=== PATIENT | female | born 1940 | race Caucasian/White ===

== ENCOUNTER → 2023-12-30 14:41 | Outpatient (REF) | payer MEDICARE, OTHER, SELFPAY ==
[2023-12-30 15:59] LABS: % Basophils 0.4 % (0-2); % Immature Granulocytes 0.1 % (0-0.5); % Lymphocytes 18.3 % (20.5-51.1); % Neutrophils 70.2 % (42.2-75.2); Absolute Eosinophils 0.2 10^3/uL (0-0.7); Absolute Lymphocytes 1.2 10^3/uL (1.2-3.4); Absolute Monocytes 0.5 10^3/uL (0.1-0.6); Absolute Neutrophils 4.7 10^3/uL (1.4-6.5); Hemoglobin 9.3 g/dL (12.0-16.0); Mean Corp Hgb Conc. 33.2 g/dL (33.0-37.0); Mean Corpuscular Hgb 30.7 pg (27.0-31.0); Mean Corpuscular Volume 92.4 fL (81.0-99.0); Mean Platelet Volume 10.2 fL (7.4-10.4); Nucleated Red Blood Cells % 0 %; Platelet Count 184 10^3/uL (130-400); Red Blood Cell Count 3.03 10^6/uL (4.20-5.40); Red Cell Dist. Width 12.6 % (11.5-14.5); White Blood Cell Count 6.7 10^3/uL (4.8-10.8)
== END ==
LOC: REG 14:41
PROVIDERS: ATTENDING PHYSICIAN Internal Medicine Hematology & Oncology; FAMILY PHYSICIAN Family Medicine
DX: C50.411 Malignant neoplasm of upper-outer quadrant of right female breast (principal); R11.2 Nausea with vomiting, unspecified; Z51.89 Encounter for other specified aftercare; Z98.84 Bariatric surgery status; M81.8 Other osteoporosis without current pathological fracture; D64.9 Anemia, unspecified; R53.82 Chronic fatigue, unspecified; N18.30 Chronic kidney disease, stage 3 unspecified
CPT/HCPCS: 36415; 85025

== ENCOUNTER → 2024-05-31 12:03 | Outpatient (REF) | payer MEDICARE, OTHER, SELFPAY ==
[2024-05-31 12:49] LABS: % Basophils 0.4 % (0-2); % Eosinophils 3.7 % (0-6); % Immature Granulocytes 0.6 % (0-0.5); % Lymphocytes 17.2 % (20.5-51.1); % Monocytes 5.6 % (1.7-9.3); % Neutrophils 72.5 % (42.2-75.2); Absolute Eosinophils 0.4 10^3/uL (0-0.7); Absolute Immature Granulocytes 0.1 10^3/uL (0-0.05); Absolute Lymphocytes 1.7 10^3/uL (1.2-3.4); Absolute Monocytes 0.6 10^3/uL (0.1-0.6); Absolute Neutrophils 7.3 10^3/uL (1.4-6.5); Hematocrit 22.8 % (37.0-47.0); Mean Corp Hgb Conc. 30.7 g/dL (33.0-37.0); Mean Corpuscular Hgb 24.8 pg (27.0-31.0); Mean Corpuscular Volume 80.9 fL (81.0-99.0); Mean Platelet Volume 9.7 fL (7.4-10.4); Nucleated Red Blood Cells % 0 %; Platelet Count 225 10^3/uL (130-400); Red Blood Cell Count 2.82 10^6/uL (4.20-5.40); Red Cell Dist. Width 15.9 % (11.5-14.5)
== END ==
LOC: REG 12:03
PROVIDERS: ATTENDING PHYSICIAN Internal Medicine Hematology & Oncology; FAMILY PHYSICIAN Family Medicine; REFERRING PHYSICIAN Nurse Practitioner Family
DX: C50.411 Malignant neoplasm of upper-outer quadrant of right female breast (principal); R11.2 Nausea with vomiting, unspecified; Z51.89 Encounter for other specified aftercare; Z98.84 Bariatric surgery status; M81.8 Other osteoporosis without current pathological fracture; D64.9 Anemia, unspecified; R53.82 Chronic fatigue, unspecified; N18.30 Chronic kidney disease, stage 3 unspecified
CPT/HCPCS: 36415; 80048; 82728; 83010; 83540; 83550; 83615; 85025; 85045; 86850; 86900; 86901; 86920

== ENCOUNTER 2024-06-01 08:46 | Outpatient (RCR) | payer MEDICARE, OTHER, SELFPAY ==
[2024-05-31 18:32] LABS: Blood Urea Nitrogen 27 mg/dl (7-17); Calcium 8.5 mg/dl (8.4-10.2); Carbon Dioxide 27 mmol/L (22-30); Chloride 103 mmol/L (98-107); Glucose 78 mg/dl (70-99); Iron 38 ug/dl (37-170); LDH 466 U/L (120-246); Potassium 4.5 mmol/L (3.5-5.1); Sodium 136 mmol/L (135-145); eGFR 44.64
[2024-05-31 18:39] LABS: Reticulocyte Count 2.2 % (0.4-2.8)
[2024-05-31 18:41] LABS: Percent Saturation 9 % (20-50); Total Iron Binding Capacity 410 ug/dl (265-497)
[2024-05-31 19:07] LABS: Ferritin 12.2 ng/ml (11.1-264.0)
[2024-06-01 09:32] VITALS: BP 118/46
[2024-06-01 09:53] VITALS: BP 138/49
[2024-06-01 12:07] VITALS: BP 146/46
[2024-06-01 12:20] VITALS: BP 146/46
[2024-06-01 12:37] VITALS: BP 140/45
[2024-06-01 14:55] VITALS: BP 168/49
[2024-06-04 01:26] LABS: Haptoglobin <10 mg/dL (30-200)
== END 2024-06-20 23:59 | disposition home or self-care (01) ==
LOC: OID 08:46
PROVIDERS: Nurse Practitioner Family; ATTENDING PHYSICIAN Internal Medicine Hematology & Oncology; FAMILY PHYSICIAN Family Medicine
DX: C50.411 Malignant neoplasm of upper-outer quadrant of right female breast (principal); N18.30 Chronic kidney disease, stage 3 unspecified; R11.2 Nausea with vomiting, unspecified; Z98.84 Bariatric surgery status; Z51.89 Encounter for other specified aftercare
CPT/HCPCS: 36415; 36430; 80048; 82728; 83010; 83540; 83550; 83615; 85045; 86850; 86900; 86901; 86920; P9016

== ENCOUNTER → 2024-06-04 09:21 | Outpatient (REF) | payer MEDICARE, OTHER, SELFPAY | LOC: RCS 09:21 | PROVIDERS: ATTENDING PHYSICIAN Internal Medicine Interventional Cardiology; FAMILY PHYSICIAN Family Medicine | DX: I35.0 Nonrheumatic aortic (valve) stenosis (principal); Z95.2 Presence of prosthetic heart valve | CPT/HCPCS: 93306 ==

== ENCOUNTER → 2024-06-25 15:46 | Outpatient (REF) | payer MEDICARE, OTHER, SELFPAY ==
[2024-06-25 10:52] LABS: % Basophils 0.4 % (0-2); % Eosinophils 4.2 % (0-6); % Immature Granulocytes 0.4 % (0-0.5); % Lymphocytes 14.8 % (20.5-51.1); % Monocytes 8.6 % (1.7-9.3); % Neutrophils 71.6 % (42.2-75.2); Absolute Eosinophils 0.2 10^3/uL (0-0.7); Absolute Lymphocytes 0.8 10^3/uL (1.2-3.4); Absolute Monocytes 0.5 10^3/uL (0.1-0.6); Absolute Neutrophils 3.8 10^3/uL (1.4-6.5); Hematocrit 29.4 % (37.0-47.0); Hemoglobin 9.6 g/dL (12.0-16.0); Mean Corp Hgb Conc. 32.7 g/dL (33.0-37.0); Mean Corpuscular Hgb 26.4 pg (27.0-31.0); Mean Corpuscular Volume 80.8 fL (81.0-99.0); Mean Platelet Volume 10.5 fL (7.4-10.4); Nucleated Red Blood Cells % 0 %; Platelet Count 246 10^3/uL (130-400); Red Blood Cell Count 3.64 10^6/uL (4.20-5.40); Red Cell Dist. Width 17.4 % (11.5-14.5); White Blood Cell Count 5.3 10^3/uL (4.8-10.8)
== END ==
LOC: OIDL 15:46
PROVIDERS: ATTENDING PHYSICIAN Internal Medicine Hematology & Oncology
DX: C50.411 Malignant neoplasm of upper-outer quadrant of right female breast (principal)
CPT/HCPCS: 85025

== ENCOUNTER → 2024-06-29 10:08 | Outpatient (REF) | payer MEDICARE, OTHER, SELFPAY ==
[2024-06-29 12:01] LABS: % Basophils 0.4 % (0-2); % Eosinophils 3.9 % (0-6); % Lymphocytes 11.3 % (20.5-51.1); % Monocytes 12.6 % (1.7-9.3); % Neutrophils 69.8 % (42.2-75.2); Absolute Eosinophils 0.3 10^3/uL (0-0.7); Absolute Immature Granulocytes 0.1 10^3/uL (0-0.05); Absolute Lymphocytes 0.8 10^3/uL (1.2-3.4); Absolute Monocytes 0.9 10^3/uL (0.1-0.6); Absolute Neutrophils 4.8 10^3/uL (1.4-6.5); Hematocrit 30.7 % (37.0-47.0); Hemoglobin 9.7 g/dL (12.0-16.0); Mean Corp Hgb Conc. 31.6 g/dL (33.0-37.0); Mean Corpuscular Hgb 26.4 pg (27.0-31.0); Mean Corpuscular Volume 83.4 fL (81.0-99.0); Mean Platelet Volume 9.2 fL (7.4-10.4); Nucleated Red Blood Cells % 0 %; Platelet Count 215 10^3/uL (130-400); Red Blood Cell Count 3.68 10^6/uL (4.20-5.40); Red Cell Dist. Width 17.7 % (11.5-14.5); White Blood Cell Count 6.9 10^3/uL (4.8-10.8)
== END ==
LOC: REG 10:08
PROVIDERS: ATTENDING PHYSICIAN Physical Medicine & Rehabilitation; FAMILY PHYSICIAN Family Medicine
DX: Z01.818 Encounter for other preprocedural examination (principal)
CPT/HCPCS: 36415; 85025

== ENCOUNTER → 2024-07-05 13:14 | Outpatient (REF) | payer MEDICARE, OTHER, SELFPAY ==
[2024-07-05 15:13] LABS: Urine Albumin Trace (Neg - Trace); Urine Bilirubin Negative (Negative); Urine Character Clear (Clear); Urine Color Yellow; Urine Glucose Negative (Negative); Urine Ketone Negative (Negative); Urine Leukocyte 2+ (Negative); Urine Nitrite Negative (Negative); Urine Occult Blood Negative (Negative); Urine Specific Gravity 1.015 (<1.030); Urine Urobilinogen Negative (Neg - 1+)
[2024-07-05 15:42] LABS: ALT (SGPT) 54 U/L (0-35); AST (SGOT) 66 U/L (14-36); Albumin 4.4 g/dl (3.5-5.0); Alkaline Phosphatase 96 U/L (38-126); Direct Bilirubin 0.2 mg/dl (0.0-0.4); Total Protein 6.7 g/dl (6.3-8.2)
[2024-07-05 15:46] LABS: Urine Squamous Cell 0-2 /LPF (Few)
[2024-07-05 15:47] LABS: Urine Bacteria Many (Negative); Urine Red Blood Cell 0-2 /HPF (0-2); Urine White Cell 50-60 /HPF (0-5)
== END ==
LOC: REG 13:14
PROVIDERS: ATTENDING PHYSICIAN Internal Medicine Hematology & Oncology; FAMILY PHYSICIAN Family Medicine
DX: C50.411 Malignant neoplasm of upper-outer quadrant of right female breast (principal); R11.2 Nausea with vomiting, unspecified; Z51.89 Encounter for other specified aftercare; Z98.84 Bariatric surgery status; M81.8 Other osteoporosis without current pathological fracture; D64.9 Anemia, unspecified; R53.82 Chronic fatigue, unspecified; N18.30 Chronic kidney disease, stage 3 unspecified; D50.9 Iron deficiency anemia, unspecified; D59.4 Other nonautoimmune hemolytic anemias
CPT/HCPCS: 36415; 80076; 81003; 81015; 86880

== ENCOUNTER → 2024-07-24 06:49 | Outpatient (REF) | payer MEDICARE, OTHER, SELFPAY | LOC: MRI 3T 06:49 | PROVIDERS: ATTENDING PHYSICIAN Physical Medicine & Rehabilitation; FAMILY PHYSICIAN Family Medicine | DX: M54.16 Radiculopathy, lumbar region (principal) | CPT/HCPCS: 72148 ==

== ENCOUNTER → 2024-08-31 07:26 | Outpatient (REF) | payer MEDICARE, OTHER, SELFPAY | LOC: RAD 07:26 | PROVIDERS: ATTENDING PHYSICIAN Internal Medicine Gastroenterology; FAMILY PHYSICIAN Family Medicine; REFERRING PHYSICIAN Internal Medicine Hematology & Oncology | DX: R19.4 Change in bowel habit (principal); R10.32 Left lower quadrant pain | CPT/HCPCS: 74176 ==

== ENCOUNTER → 2024-09-11 13:00 | Outpatient (REF) | payer MEDICARE, OTHER, SELFPAY ==
[2024-09-11 16:25] LABS: % Basophils 0.6 % (0-2); % Eosinophils 3.7 % (0-6); % Immature Granulocytes 0.2 % (0-0.5); % Lymphocytes 16.5 % (20.5-51.1); % Monocytes 7.3 % (1.7-9.3); % Neutrophils 71.7 % (42.2-75.2); Absolute Eosinophils 0.2 10^3/uL (0-0.7); Absolute Lymphocytes 1.1 10^3/uL (1.2-3.4); Absolute Monocytes 0.5 10^3/uL (0.1-0.6); Absolute Neutrophils 4.6 10^3/uL (1.4-6.5); Hematocrit 34.7 % (37.0-47.0); Hemoglobin 11.7 g/dL (12.0-16.0); Mean Corp Hgb Conc. 33.7 g/dL (33.0-37.0); Mean Corpuscular Hgb 31.9 pg (27.0-31.0); Mean Corpuscular Volume 94.6 fL (81.0-99.0); Mean Platelet Volume 9.6 fL (7.4-10.4); Nucleated Red Blood Cells % 0 %; Platelet Count 194 10^3/uL (130-400); Red Blood Cell Count 3.67 10^6/uL (4.20-5.40); Red Cell Dist. Width 14.5 % (11.5-14.5); White Blood Cell Count 6.4 10^3/uL (4.8-10.8)
[2024-09-11 16:53] LABS: Iron 75 ug/dl (37-170)
[2024-09-11 17:04] LABS: Percent Saturation 26 % (20-50); Total Iron Binding Capacity 284 ug/dl (265-497)
== END ==
LOC: REG 13:00
PROVIDERS: ATTENDING PHYSICIAN Internal Medicine Hematology & Oncology; FAMILY PHYSICIAN Family Medicine
DX: C50.411 Malignant neoplasm of upper-outer quadrant of right female breast (principal); R11.2 Nausea with vomiting, unspecified; Z51.89 Encounter for other specified aftercare; Z98.84 Bariatric surgery status; M81.8 Other osteoporosis without current pathological fracture; D64.9 Anemia, unspecified; R53.82 Chronic fatigue, unspecified; N18.30 Chronic kidney disease, stage 3 unspecified; D50.9 Iron deficiency anemia, unspecified; D59.4 Other nonautoimmune hemolytic anemias; R30.0 Dysuria; N39.0 Urinary tract infection, site not specified
CPT/HCPCS: 36415; 82728; 83540; 83550; 85025

== ENCOUNTER 2024-10-02 09:09 | Emergency (ER) | payer MEDICARE, OTHER, SELFPAY ==
[2024-10-02 09:11] VITALS: BP 138/60
--- NOTE | 2024-10-02 10:44 | ED.MUSCINJ ---
HPI-Injury
General
Chief Complaint: Fall
Source: patient
Exam Limitations: none
Time Seen by Provider: 10/02/24 10:43
Nursing documentation reviewed up to this point in time: agreed with
History of Present Illness-Injury
Initial Injury comments:
84 yo female w h/o HTN, HLD, GERD, anemia, depression got OOB to go to [facility] 3 a.m. missed the toilet and fell forward, striking right orbit on hamper and fell onto right side. Bruising around right orbit, pain right shoulder and right hand with
swelling and bruising right hand. Not anticoagulated, denies LOC or headache. Denies neck/back pain. Got herself up and went back to bed.
Past History
Past History
ED Past Medical History: GERD, HTN, Hypercholesterolemia and Psychiatric (Depression)
ED Past Surgical History: Cholecystectomy, Gynecological, Orthopedic (carpal tunnel right hand, right shoulder replacement and R wrist hardware) and Other (gastric bypass)
Social History
Tobacco: Non-smoker
Drug: None
Personal:
Living: with family
Employment: Retired
Family History
Family History: Other
Review of Systems
Review of Systems
Allergies reviewed?: Yes
All Other Systems: ROS reviewed and negative except as documented in HPI and ROS
Respiratory: Denies trouble breathing
Cardiac: Denies chest pain, palpitations or syncope
ABD/GI: Denies abdominal pain, nausea, vomiting or diarrhea
: Denies dysuria, difficulty voiding or urgency
Musculoskeletal: Reports other (pain, bruising swelling back of right hand. Pain right shoulder, wrist); Denies neck pain or back pain
Skin: Reports other (bruising around right eye, right hand)
Neurological: Reports no symptoms
Phy Exam
Physical Exam
Physical Exam:
GENERAL: No acute distress. A&Ox3.
CONSTITUTIONAL: Afebrile.
EYES: PERRL, conjunctivae normal. Point tender right lateral supraorbital area with ecchymosis around right eye. EOMs intact. No significant swelling. Eyeball normal
ENMT: moist mucus membranes, Pharynx nl
RESPIRATORY: Regular respirations, nonlabored, lungs clear.
CARDIOVASCULAR: Regular rate and rhythm, + murmur, no rubs.
GI: Soft, nontender, normal BS
MUSCULOSKELETAL: No spinal bony tenderness. Limited ROM RUE (chronic) mild tenderness about the shoulder. No swelling right wrist. Dorsum right hand with swelling, ecchymosis, tenderness. Mild flexion deformity right hand finger post surgery
(chronic) Moves with ease. Well perfused.
SKIN: Warm, dry, pink
PSYCH: Normal mood and affect. Well kept, interactive and appropriate
NEUROLOGIC: Awake, alert and oriented. No focal neurological deficits
Injury Course
Orders/Labs/Results
Orders:
Orders
10/02/24 09:14
Hand, Right 3 View [CR Hand - Right Min 3 Views] Urgent
Comment:
Reason For Exam: pain, fell
10/02/24 09:15
Wrist, Right 3 Views [CR Wrist - Right Min 3 Views] Urgent
Comment:
Reason For Exam: fall
10/02/24 09:16
Shoulder, Right, Trauma [CR Shoulder, Trauma - Right] Urgent
Comment:
Reason For Exam: fall
10/02/24 10:44
Volar Right-Treatment ONCE
MDM/Problems Addressed
Differential Diagnosis Includes:
contusion, fracture R hand
MDM/Problems Addressed:
84 yo female w h/o HTN, HLD, GERD, anemia, depression got OOB to go to [facility] 3 a.m. missed the toilet and fell forward, striking right orbit on hamper and fell onto right side. Bruising around right orbit, pain right shoulder and right hand with
swelling and bruising right hand. Not anticoagulated, denies LOC or headache. Denies neck/back pain. Got herself up and went back to bed.
Clearly a mechanical fall.
R shoulder and wrist xrays: hardware intact, no acute bony injury/fracture
R hand xray: nondisplaced fractures shafts of 3rd and 4th metacarpals
Volar splint applied
Pt has seen Dr. Cox in past, will f/u there.
Pt lives in daughter's carriage house, has good family support.
*Critical Care Note
Total Time (30-74mins, 75-104mins- exclusive of procedures): Not Applicable
ED Attending Note
-
Portions of this chart may have been created with voice recognition software.� Occasional wrong word or��sound alike� substitutions may have occurred due to the inherent limitations of voice recognition software.
Discharge Plan
Departure
Patient Disposition: Home (Routine Discharge)
Date of Disposition: 10/02/24
Time of Disposition: 11:06
Patient with high blood pressure during this ER visit?: No
Condition: Good
Discharge Problem:
Fall from slip, trip, or stumble, Fracture of right hand, Contusion of right orbit, Soft tissue injury of right shoulder
Instructions: Contusion (DC), Preventing falls in adults, Hand Fracture ED
Prescriptions:
No Action
trazodone 150 MG tablet
150 mg PO HS
hydrochlorothiazide 12.5 MG tablet
12.5 mg PO DAILY Qty: 1 0RF
metoprolol succinate 25 mg Tablet Extended Release 24 Hr
50 mg PO HS
famotidine 40 mg Tablet
40 mg PO HS
omeprazole 40 mg Capsule,Delayed Release(Dr/Ec)
40 mg PO DAILY
bupropion HCl 300 mg Tablet Extended Release 24 Hr
300 mg PO DAILY
aspirin 81 mg Tablet,Chewable
81 mg PO DAILY
acetaminophen 325 mg Tablet
650 mg PO Q6HPRN PRN (Reason: ZUNIGA, mild pain, or fever >101F) Qty: 0 0RF
vitamin B complex [Vitamins B Complex] Capsule
1 cap DAILY
calcium carbonate 500 mg calcium (1,250 mg) Tablet
500 mg PO DAILY
cholecalciferol (vitamin D3) [Vitamin D3] 125 mcg (5,000 unit) Tablet
125 mcg PO DAILY
cefdinir 300 mg capsule
300 mg PO BID Qty: 18 0RF
zolpidem 10 MG tablet
5 mg PO HS Qty: 0 0RF
Patient Comments:
10/09/2023: last filled 08/22/23, 90 tabs for 90 days from [facility]
Referrals:
Tee Cox MD [Active] - Call in 1-3 days for appt
Activity Restrictions/Additional Instructions:
As we discussed, keep the splint on until you see the orthopedic doctor
Cold compress off and on the back of your hand over the za wrap for 15 minutes today and tomorrow as much as you can to reduce swelling.
Tylenol as needed for pain
Call the orthopedic doctor today to make appointment
Interventions
Interventions:
*Risk Screen - Suicide Last Done: 10/02/24 11:04
*General Assessment Last Done: 10/02/24 11:04
*Neglect/Abuse Screening Last Done: 10/02/24 11:04
*ED COVID-19 Vaccine History Last Done: 10/02/24 11:04
*Nursing Disposition Last Done: 10/02/24 11:26
ED-Musculoskeletal Assessment Last Done: 10/02/24 11:04
ED- Neurological Assessment Last Done: 10/02/24 11:04
Discharge Date and Time
Discharge Date/Time: 10/02/24 11:27
Print Language: KAZAKH
== END 2024-10-02 11:27 | disposition home or self-care (01) ==
LOC: EMR 09:09
PROVIDERS: EMERGENCY PHYSICIAN Emergency Medicine; FAMILY PHYSICIAN Family Medicine
DX: S62.91XA Unspecified fracture of right hand, initial encounter for closed fracture (principal); S05.11XA Contusion of eyeball and orbital tissues, right eye, initial encounter; S49.91XA Unspecified injury of right shoulder and upper arm, initial encounter; S60.221A Contusion of right hand, initial encounter; W01.0XXA Fall on same level from slipping, tripping and stumbling without subsequent striking against object, initial encounter; E78.00 Pure hypercholesterolemia, unspecified; I10 Essential (primary) hypertension; K21.9 Gastro-esophageal reflux disease without esophagitis; F32.A Depression, unspecified; Z90.49 Acquired absence of other specified parts of digestive tract; Z96.611 Presence of right artificial shoulder joint; Z98.84 Bariatric surgery status
CPT/HCPCS: 99283; 29125; 73030; 73110; 73130

== ENCOUNTER → 2024-12-03 14:09 | Outpatient (REF) | payer MEDICARE, OTHER, SELFPAY ==
[2024-12-03 15:11] LABS: % Basophils 0.7 % (0-2); % Eosinophils 2.8 % (0-6); % Immature Granulocytes 0.3 % (0-0.5); % Lymphocytes 22.6 % (20.5-51.1); % Monocytes 7.7 % (1.7-9.3); % Neutrophils 65.9 % (42.2-75.2); Absolute Basophils 0.1 10^3/uL (0-0.2); Absolute Eosinophils 0.2 10^3/uL (0-0.7); Absolute Lymphocytes 1.5 10^3/uL (1.2-3.4); Absolute Monocytes 0.5 10^3/uL (0.1-0.6); Absolute Neutrophils 4.4 10^3/uL (1.4-6.5); Hematocrit 32.5 % (37.0-47.0); Hemoglobin 10.7 g/dL (12.0-16.0); Mean Corp Hgb Conc. 32.9 g/dL (33.0-37.0); Mean Corpuscular Hgb 31.2 pg (27.0-31.0); Mean Corpuscular Volume 94.8 fL (81.0-99.0); Mean Platelet Volume 10.4 fL (7.4-10.4); Nucleated Red Blood Cells % 0 %; Platelet Count 204 10^3/uL (130-400); Red Blood Cell Count 3.43 10^6/uL (4.20-5.40); Red Cell Dist. Width 11.9 % (11.5-14.5); White Blood Cell Count 6.7 10^3/uL (4.8-10.8)
[2024-12-03 15:23] LABS: ALT (SGPT) 20 U/L (0-35); AST (SGOT) 36 U/L (14-36); Albumin 4.4 g/dl (3.5-5.0); Alkaline Phosphatase 84 U/L (38-126); Blood Urea Nitrogen 19 mg/dl (7-17); Carbon Dioxide 27 mmol/L (22-30); Chloride 99 mmol/L (98-107); Glucose 98 mg/dl (70-99); Potassium 5.1 mmol/L (3.5-5.1); Sodium 135 mmol/L (135-145); Total Bilirubin 1.3 mg/dl (0.2-1.3); Total Protein 6.8 g/dl (6.3-8.2); eGFR 40.55
== END ==
LOC: REG 14:09
PROVIDERS: ATTENDING PHYSICIAN Nurse Practitioner Family; FAMILY PHYSICIAN Family Medicine
DX: N39.0 Urinary tract infection, site not specified (principal); R50.9 Fever, unspecified
CPT/HCPCS: 36415; 80053; 85025

== ENCOUNTER 2024-12-08 17:02 | Inpatient (IN) | payer MEDICARE, OTHER, SELFPAY ==
[2024-12-08] VITALS (9 sets, daily range): BP systolic 112–168; BP diastolic 57–93; BMI 33.0
[2024-12-08 07:26] LABS: % Immature Granulocytes 0.3 % (0-0.5); % Lymphocytes 24.3 % (20.5-51.1); % Monocytes 9.4 % (1.7-9.3); Absolute Basophils 0.1 10^3/uL (0-0.2); Absolute Eosinophils 0.2 10^3/uL (0-0.7); Absolute Lymphocytes 1.4 10^3/uL (1.2-3.4); Absolute Monocytes 0.6 10^3/uL (0.1-0.6); Absolute Neutrophils 3.6 10^3/uL (1.4-6.5); Hematocrit 30.5 % (37.0-47.0); Hemoglobin 10.5 g/dL (12.0-16.0); Mean Corp Hgb Conc. 34.4 g/dL (33.0-37.0); Mean Platelet Volume 10.1 fL (7.4-10.4); Nucleated Red Blood Cells % 0 %; Platelet Count 197 10^3/uL (130-400); Red Blood Cell Count 3.28 10^6/uL (4.20-5.40); Red Cell Dist. Width 11.9 % (11.5-14.5); White Blood Cell Count 5.9 10^3/uL (4.8-10.8)
[2024-12-08 07:49] LABS: ALT (SGPT) 21 U/L (0-35); AST (SGOT) 39 U/L (14-36); Albumin 4.3 g/dl (3.5-5.0); Alkaline Phosphatase 86 U/L (38-126); Blood Urea Nitrogen 39 mg/dl (7-17); Calcium 8.4 mg/dl (8.4-10.2); Carbon Dioxide 24 mmol/L (22-30); Chloride 104 mmol/L (98-107); Glucose 100 mg/dl (70-99); Sodium 139 mmol/L (135-145); Total Bilirubin 1.1 mg/dl (0.2-1.3); Total Protein 6.7 g/dl (6.3-8.2); eGFR 24.18
[2024-12-08] MEDS: NSS 1000 IV ×3 (09:37→19:10)
--- NOTE | 2024-12-08 09:44 | ED.GENMED ---
History of Present Illness
General
Chief Complaint: Urinary Symptoms
Time Seen by Provider: 12/08/24 08:58
History of Present Illness
History of Present Illness:
84-year-old female with history of high blood pressure presenting for acute confusion and concern for urinary tract infection. Patient arrives with daughter who notes about a week ago she was having urinary symptoms, was started on Keflex. The
following few days she was not improving, so she was started on ciprofloxacin by urology. Urine culture showed sensitivity to ciprofloxacin, however this morning she woke up, came into her daughter's house (lives in a carriage house behind her),
and was belligerent, very confused which is completely unlike her. Does note that patient has issues with urination, self caths 4 times a day so has had urinary tract infections in the past. No reported fevers. Patient has been complaining of
back pain. No report of any fall or trauma. Patient denies any chest breathing, abdominal pain.
Past History
Past History
ED Past Medical History: GERD, HTN, Hypercholesterolemia and Psychiatric (Depression)
ED Past Surgical History: Cholecystectomy, Gynecological, Orthopedic (carpal tunnel right hand, right shoulder replacement and R wrist hardware) and Other (gastric bypass)
Social History
Tobacco: Non-smoker
Drug: None
Personal:
Living: with family
Employment: Retired
Family History
Family History: Other
Phy Exam
Physical Exam
Physical Exam:
General: Well-appearing, no clinical signs of dehydration, nontoxic and in no acute distress
HEENT: protecting airway
Neck: appears supple
CV: Normal heart rate, regular rhythm
Resp: No accessory muscle use, no increased work of breathing, lungs clear to auscultation bilaterally
Abd: Soft and non-distended, mild tenderness to suprapubic region. Left CVA tenderness
Extremities: No deformities, no swelling
Neuro: alert, no focal neurologic deficit
: deferred
Rectal: deferred
Psych: Normal affect
Skin: Intact
Course
Orders/Labs/Results
Orders:
Orders
12/08/24 07:19
CMP [Comprehensive Metabolic Panel] Urgent
Complete Blood Count/With Diff Urgent
12/08/24 09:19
0.9% Sodium Chloride 1000 ml [Nss] 1,000 ml IV BOLUS
12/08/24 09:20
CT Head W/o Iv Contrast Urgent
Comment:
Reason For Exam: new onset confusion
12/08/24 09:26
Urinalysis Reflex To Culture Urgent
Date Specimen was Collected: 12/08/24
Time Specimen was Collected: :25
Urine Microscopic Reflex Cult Urgent
Urine Culture Urgent
ANETTE Source: U
Specimen Description:
Date Specimen was Collected: 12/08/24
Time Specimen was Collected: :25
12/08/24 09:38
CT Abd/pel Without Iv Or Oral Urgent
Comment:
Reason For Exam: L-flank pain, urinary symptoms
12/08/24 13:08
NSS 1000mL Bolus WIDE OPEN 0.9% Sodium Chloride 1000 ml [Nss] 1,000 ml IV BOLUS
Piperacillin/Tazo 4.5 Gram [Zosyn] 4.5 gram in 100 ml IV NOW
Abnormal Lab Results
12/08/24 12/08/24
07:19 09:26
RBC 3.28 L 10^6/uL
(4.20-5.40)
Hgb 10.5 L g/dL
(12.0-16.0)
Hct 30.5 L %
(37.0-47.0)
MCH 32.0 H pg
(27.0-31.0)
Monocytes % 9.4 H %
(1.7-9.3)
BUN 39 H mg/dl
(7-17)
Creatinine 2.0 H mg/dL
(0.6-1.0)
Glucose 100 H mg/dl
(70-99)
AST 39 H U/L
(14-36)
Leukocyte Esterase Rfl 1+ A
(Negative)
Urine RBC 7-10 A /HPF
(0-2)
Urine WBC (Reflex) 21-25 A /HPF
(0-5)
Urine Bacteria (Reflex) Many A
(Negative)
12/08/24 07:19
12/08/24 07:19
Vital Signs
Initial and Last Documented VS:
Initial Vital Signs
Temp Pulse Resp BP Pulse Ox
98.1 F 73 16 140/63 99
12/08/24 07:07 12/08/24 07:07 12/08/24 07:07 12/08/24 07:07 12/08/24 07:07
Last Documented Vital Signs
Temp Pulse Resp BP Pulse Ox
98.1 F 78 13 142/91 98
12/08/24 07:07 12/08/24 11:55 12/08/24 11:55 12/08/24 11:55 12/08/24 11:58
MDM/Problems Addressed
MDM/Problems Addressed:
84-year-old female with history of hypertension presenting with urinary symptoms and confusion. Vital signs on arrival are normal.
On exam patient is resting comfortably, no acute distress or discomfort. She is nontoxic in appearance. No focal neurologic deficits with lower suspicion for acute central neurologic process, however given age and change in behavior, will obtain
CT brain imaging. Regarding urinary issues, possible failure of outpatient treatment, left CVA tenderness and suprapubic tenderness on exam. Will repeat urinalysis and obtain CT abdominal imaging.
13:00 -Labs show SCOTT. Urine does show bacteria with WBCs, with concern for persistent urinary tract infection, failure of outpatient therapy, now with confusion, UTI. CT without evidence of Francois. Does show a pancreatic mass which family is aware
of. At this time feel patient warrants admission. Will start IV antibiotics. Patient agreeable to plan
*Critical Care Note
Total Time (30-74mins, 75-104mins- exclusive of procedures): Not Applicable
ED Attending Note
-
Portions of this chart may have been created with voice recognition software.� Occasional wrong word or��sound alike� substitutions may have occurred due to the inherent limitations of voice recognition software.
Discharge Plan
Departure
Prescriptions:
No Action
trazodone 150 MG tablet
150 mg PO HS
hydrochlorothiazide 12.5 MG tablet
12.5 mg PO DAILY Qty: 1 0RF
metoprolol succinate 25 mg Tablet Extended Release 24 Hr
50 mg PO HS
famotidine 40 mg Tablet
40 mg PO HS
omeprazole 40 mg Capsule,Delayed Release(Dr/Ec)
40 mg PO DAILY
bupropion HCl 300 mg Tablet Extended Release 24 Hr
300 mg PO DAILY
aspirin 81 mg Tablet,Chewable
81 mg PO DAILY
acetaminophen 325 mg Tablet
650 mg PO Q6HPRN PRN (Reason: ZUNIGA, mild pain, or fever >101F) Qty: 0 0RF
vitamin B complex [Vitamins B Complex] Capsule
1 cap DAILY
calcium carbonate 500 mg calcium (1,250 mg) Tablet
500 mg PO DAILY
cholecalciferol (vitamin D3) [Vitamin D3] 125 mcg (5,000 unit) Tablet
125 mcg PO DAILY
cefdinir 300 mg capsule
300 mg PO BID Qty: 18 0RF
zolpidem 10 MG tablet
5 mg PO HS Qty: 0 0RF
Patient Comments:
10/09/2023: last filled 08/22/23, 90 tabs for 90 days from [facility]
Referrals:
Melquiades Kirby MD [Family Provider] -
Interventions
Interventions:
*Risk Screen - Suicide Last Done: 12/08/24 07:11
*General Assessment Last Done: 12/08/24 07:11
*Neglect/Abuse Screening Last Done: 12/08/24 11:58
ED- Fall Risk Assessment Last Done: 12/08/24 11:58
*ED COVID-19 Vaccine History Last Done: 12/08/24 07:11
ED-Female Genitourinary Assessment Last Done: 12/08/24 11:58
Discharge Date and Time
Print Language: SAMMARINESE
[2024-12-08 09:48] LABS: Urine Albumin Negative (Neg - Trace); Urine Bilirubin Negative (Negative); Urine Character Slightly Cloudy (Clear); Urine Color Yellow; Urine Glucose Negative (Negative); Urine Ketone Negative (Negative); Urine Leukocyte 1+ (Negative); Urine Nitrite Negative (Negative); Urine Occult Blood Negative (Negative); Urine Urobilinogen Negative (Neg - 1+)
[2024-12-08 10:18] LABS: Urine Mucus Few; Urine Squamous Cell >30 /LPF (Few)
[2024-12-08 10:19] LABS: Urine Bacteria Many (Negative); Urine White Cell 21-25 /HPF (0-5)
[2024-12-08] MEDS: ZOSYN 100 IV (13:14)
--- NOTE | 2024-12-08 15:48 | HPS.HSE ---
Family Physician
-
Family Physician: Melquiades Kirby
Chief Complaint
-
Confusion
History of Present Illness
84-year-old woman presents with acute confusion and known urinary tract infection. Patient a week ago she was having urinary symptoms, was started on Keflex. She was not improving, so she was started on ciprofloxacin by urology. Urine culture
showed sensitivity to ciprofloxacin, however this morning she woke up, and was belligerent, very confused (which the daughter states is completely unlike her). The patient has issues with urination, and self caths 4 times a day and has had urinary
tract infections in the past. No reported fevers. She has been complaining of back pain. No report of any fall or trauma. Patient denies any chest breathing, abdominal pain. At the time of my exam she was calm and oriented. The daughter states
that she was doing much better.
Medical History
Past Medical History
Past Medical History: Reports Other
Additional Past Medical History:
GERD,
essential HTN,
Hypercholesterolemia
Depression
Cholecystectomy
carpal tunnel right hand,
right shoulder replacement and R wrist hardware
gastric bypass
DDD (degenerative disc disease), lumbar
Lumbar stenosis without neurogenic claudication
Mediastinal adenopathy
Obstructive sleep apnea syndrome
Severe episode of recurrent major depressive disorder, without psychotic features
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
Mixed hyperlipidemia
Age-related osteoporosis without current pathological fracture
Estrogen receptor positive status [ER+]
Vocal cord paralysis
Status post reverse total arthroplasty of right shoulder
Infiltrating ductal carcinoma of right breast, stage 1
Status post total replacement of right shoulder
S/P cervical spinal fusion
Intractable migraine without aura and with status migrainosus
Iron deficiency anemia due to chronic blood loss
Pancreatic cyst
Past Surgical History: Reports Other
Additional Past Surgical History:
See above
Social History
Tobacco: Non-smoker
Alcohol: None
Drug: None
Personal:
Living: With Family
Employment: Not Employed
Family History
Family History: Not pertinent
Allergies / Home Medications
Allergies reflects when Allergies were last updated in [facility].
Home Medications with original date entered in [facility]
Allergy/Medication List:
Allergies
Allergy/AdvReac Type Severity Reaction Status Date / Time
No Known Allergies Allergy Verified 12/08/24 07:15
Home Medications
hydrochlorothiazide 12.5 mg tablet 12.5 mg PO DAILY #1 tab 01/26/23
metoprolol succinate 25 mg tablet,extended release 24 hr 25 mg PO HS Blood Pressure 06/20/23
bupropion HCl 300 mg 24 hr tablet, extended release 300 mg PO DAILY Depression 08/09/23
omeprazole 40 mg capsule,delayed release 40 mg PO DAILY Gastrointestinal Issue 08/09/23
acetaminophen 325 mg tablet 650 mg (2 x 325 mg) PO Q6HPRN PRN ZUNIGA, mild pain, or fever >101F #0 tabs 08/19/23
ciprofloxacin HCl 500 mg tablet (Cipro) 500 mg PO BID 12/08/24
prednisolone acetate 1 % eye drops,suspension 1 drp BOTH EYES DAILY 12/08/24
tramadol 50 mg tablet 50 mg PO DAILYPRN PRN moderate pain 12/08/24
trazodone 50 mg tablet 150 mg PO HS 12/08/24
zolpidem 10 mg tablet 10 mg PO HS Sleep 12/08/24
Review of Systems
-
History Source: Patient
A 12 point ROS was completed and negative except as noted: Yes
Physical Exam
Vital Signs
Vital Signs
Temp Pulse Resp BP Pulse Ox
98.1 F 78 13 142/91 98
12/08/24 07:07 12/08/24 11:55 12/08/24 11:55 12/08/24 11:55 12/08/24 11:58
Physical Exam
General: Well Developed, Well Nourished, No Apparent Distress and Obese
HEENT: NormoCephalic, Moist mucous membranes, Nose Appears Normal and Ears Appear Normal
Respiratory: Clear
Cardiac: S1/S2, Regular Rhythm and Murmur
GI: Soft, Non Tender and Non Distended
Musculoskeletal: No Clubbing, No Cyanosis and No Edema
Skin: Warm and Dry; No Rash or Jaundice
Neuro: Awake and Alert
Psych: Calm
Laboratory Results
-
12/08/24 07:19
12/08/24 07:19
Laboratory Results
Total Bilirubin 1.1 mg/dl (0.2-1.3) 12/08/24 07:19
AST 39 U/L (14-36) H 12/08/24 07:19
ALT 21 U/L (0-35) 12/08/24 07:19
Alkaline Phosphatase 86 U/L (38-126) 12/08/24 07:19
Data Reviewed
-
Lab Data: Labs Reviewed by me
Impression/Plan
-
IMPRESSION:
84 woman with probable infection and confusion. Significant findings:
H/H 10.5/30.5 (at baseline)
BUN/creat 39/2.0 (baseline ~19/1.2)
CT shows:
No renal or ureteral calculus.
No bladder calculus.
No evidence of obstructive uropathy.
Diverticulosis without acute diverticulitis.
No bowel obstruction.
Constipation with mild to moderate colonic fecal burden.
Interval development of 1.4 cm low-attenuation mass in the pancreatic head, and suspected small peripancreatic lymph nodes.
Progressive diffuse atrophy of the pancreatic neck and proximal body. Neoplasm to be excluded.
PLAN:
1. infection with confusion - ER gave Zosyn. patient feels better
Continue zosyn
Await culture results
IV fluids
2. SCOTT vs ARF - likely from illness and decreased PO
IV fluids
Check renal function in am
3. Anemia - likely from chronic disease
Follow as outpat
No indication for transfusion a this time
4. Potential change in mass at pancreas, known h/o pancreatic cyst
Expedited outpatient follow up
5. Constipation
trial of colace.
IV fluids
Encourage ambulation
Code: DNR (confirmed by daughter)
VCD for DVTp
[2024-12-08] MEDS: ZOSYN 50 IV (21:36)
[2024-12-08] MEDS: TOPROL XL 25 MG PO (21:37)
[2024-12-08] MEDS: DESYREL 150 MG PO (21:37)
[2024-12-08] MEDS: TYLENOL 650 MG PO (21:37)
[2024-12-08] MEDS: AMBIEN 5 MG PO (21:37)
[2024-12-09] MEDS: ZOSYN 50 IV ×4 (01:46→21:08)
[2024-12-09] MEDS: NSS 1000 IV ×3 (05:42→23:19)
[2024-12-09] MEDS: TYLENOL 650 MG PO ×2 (06:05→15:58)
[2024-12-09 07:30] VITALS: BP 118/77
[2024-12-09 08:19] LABS: Hematocrit 27.8 % (37.0-47.0); Hemoglobin 9.2 g/dL (12.0-16.0); Mean Corp Hgb Conc. 33.1 g/dL (33.0-37.0); Mean Corpuscular Hgb 31.1 pg (27.0-31.0); Mean Corpuscular Volume 93.9 fL (81.0-99.0); Mean Platelet Volume 10.1 fL (7.4-10.4); Platelet Count 176 10^3/uL (130-400); Red Blood Cell Count 2.96 10^6/uL (4.20-5.40); Red Cell Dist. Width 12.2 % (11.5-14.5); White Blood Cell Count 5.2 10^3/uL (4.8-10.8)
[2024-12-09] MEDS: WELLBUTRIN XL (24 hour extended release) 300 MG PO (08:29)
[2024-12-09] MEDS: ORETIC 12.5 MG PO (08:29)
[2024-12-09] MEDS: MIRALAX 17 GRAMS PO (08:30)
[2024-12-09] MEDS: PRED FORTE 1% EYE DROPS 1 DROP BOTH EYES (08:30)
[2024-12-09] MEDS: PROTONIX 40 MG PO (08:30)
[2024-12-09 08:42] LABS: Blood Urea Nitrogen 29 mg/dl (7-17); Calcium 8.1 mg/dl (8.4-10.2); Carbon Dioxide 19 mmol/L (22-30); Chloride 109 mmol/L (98-107); Estimated Creatinine Clearance 20 ml/min; Glucose 117 mg/dl (70-99); Potassium 4.1 mmol/L (3.5-5.1); Sodium 139 mmol/L (135-145); eGFR 27.44
--- NOTE | 2024-12-09 13:13 | W.PN.HOSP.TC ---
Today's Communication/Plan
-
Cont abx, f/u cultures
F/u renal function
stop hctz - cont ivf
Assessment / Plan
Assessment / Plan
General: Well Developed, Well Nourished, No Apparent Distress and Obese
HEENT: NormoCephalic, Moist mucous membranes, Nose Appears Normal and Ears Appear Normal
Respiratory: Clear
Cardiac: S1/S2, Regular Rhythm and Murmur
GI: Soft, Non Tender and Non Distended
Musculoskeletal: No Clubbing, No Cyanosis and No Edema
Skin: Warm and Dry; No Rash or Jaundice
Neuro: AOOx3
Psych: Calm
#UTI
� Continue antibiotics
�follow-up final cultures
#Acute metabolic encephalopathy
� Appears to be much improved
� Treat as above
#SCOTT
� Improving slightly
� Avoid nephrotoxic agents
� Stop hydrochlorothiazide
� Continue IV fluids
#Anemia, chronic
� Continue monitoring
#Hypertension
� Continue metoprolol succinate
� Hold hydrochlorothiazide
#1.4 cm low-attenuation mass in the pancreatic head
-suspected small peripancreatic lymph nodes. Progressive diffuse atrophy of the pancreatic neck and proximal body. Neoplasm to be excluded.
-h/opancreatic cyst
#DVT ppx
HSQ
Anticipated Discharge: > 48 hours
Subjective/Interval History
-
Date of Service: December 09, 2024
mental status improved
Objective Data
-
Labs:
Laboratory Results
12/09/24
06:16
WBC 5.2
Hgb 9.2 L
Hct 27.8 L
Plt Count 176
Sodium 139
Potassium 4.1
Chloride 109 H
Carbon Dioxide 19 L
BUN 29 H
Creatinine 1.8 H
Glucose 117 H
Calcium 8.1 L
Vital Signs:
Vital Signs
Temp Pulse Resp BP Pulse Ox
97.6 F 67 20 118/77 98
12/09/24 07:30 12/09/24 07:30 12/09/24 07:30 12/09/24 07:30 12/09/24 08:30
I&O
12/08/24 12/09/24 12/10/24
06:59 06:59 06:59
Intake Total 480 / 480
Balance 480 / 480
Review of Systems
-
History Source: Patient
All other systems: Not reviewed unless documented
Data Reviewed
-
CT Scan: Report Reviewed by me
Labs: Labs Reviewed by me
--- NOTE | 2024-12-09 15:12 | CM ---
Patient seen bedside, initial assessment completed. Patient resides independently in a single story home, one step to enter, daughter lives across the street. Patient has RW, cane at home, reports history of [facility], denies SNF. Patient confirms PCP
Melquiades Kirby, pharmacy [facility] in [place], confirms prescription coverage. Patient denies needs at this time, may benefit from PT/OT evals. CM will continue to follow for all discharge planning needs.
Plan; home, watch for possible VN needs.
[2024-12-09] MEDS: HEPARIN SC (15:58)
--- NOTE | 2024-12-09 16:30 | PTCARENOTE ---
12/09- Patient c/o worsening headache despite tylenol intervention. Headache is parietal and frontal now an 8/10 with L-eye pressure. Denies any changes in vision. XK=597/72, HR=65, RR=14, POX=98%, Accucheck=86. Skin=warm/pink/dry. AAOX3; Equal
full Sensation/ROMX4; Speech clear, expressive or receptive aphagia. Patient states a hx of Migraines and Ocular Migraines for which she takes Tramadol. Notified Physician. Tramadol PRN administered as ordered.
[2024-12-09 16:35] VITALS: BP 172/72
[2024-12-09 16:39] LABS: Glucose - Point of Care 86 mg/dl (70-99)
[2024-12-09] MEDS: ULTRAM 50 MG PO (17:42)
[2024-12-09] MEDS: DESYREL 150 MG PO (21:28)
[2024-12-09] MEDS: AMBIEN 5 MG PO (21:28)
[2024-12-09] MEDS: TOPROL XL 25 MG PO (21:28)
[2024-12-09 23:05] VITALS: BP 97/58
[2024-12-09] MEDS: HEPARIN 5000 UNITS SC (23:19)
[2024-12-10] MEDS: ZOSYN 50 IV ×2 (02:42→08:58)
[2024-12-10 07:31] LABS: Hematocrit 26.1 % (37.0-47.0); Hemoglobin 8.8 g/dL (12.0-16.0); Mean Corp Hgb Conc. 33.7 g/dL (33.0-37.0); Mean Corpuscular Hgb 31.3 pg (27.0-31.0); Mean Corpuscular Volume 92.9 fL (81.0-99.0); Mean Platelet Volume 9.9 fL (7.4-10.4); Platelet Count 160 10^3/uL (130-400); Red Blood Cell Count 2.81 10^6/uL (4.20-5.40); Red Cell Dist. Width 12.1 % (11.5-14.5)
[2024-12-10 07:33] VITALS: BP 120/51
[2024-12-10 08:06] LABS: ALT (SGPT) 15 U/L (0-35); AST (SGOT) 31 U/L (14-36); Albumin 3.2 g/dl (3.5-5.0); Alkaline Phosphatase 67 U/L (38-126); Blood Urea Nitrogen 24 mg/dl (7-17); Calcium 8.2 mg/dl (8.4-10.2); Carbon Dioxide 18 mmol/L (22-30); Chloride 112 mmol/L (98-107); Estimated Creatinine Clearance 20 ml/min; Glucose 87 mg/dl (70-99); Sodium 138 mmol/L (135-145); Total Bilirubin 1.3 mg/dl (0.2-1.3); Total Protein 5.5 g/dl (6.3-8.2); eGFR 27.44
[2024-12-10] MEDS: MIRALAX 17 GRAMS PO (08:55)
[2024-12-10] MEDS: PROTONIX 40 MG PO (08:57)
[2024-12-10] MEDS: WELLBUTRIN XL (24 hour extended release) 300 MG PO (08:57)
[2024-12-10] MEDS: PRED FORTE 1% EYE DROPS 1 DROP BOTH EYES (08:57)
[2024-12-10] MEDS: HEPARIN 5000 UNITS SC (08:58)
--- NOTE | 2024-12-10 11:41 | W.DS.TRANS ---
DC Summary - Overhead Line Worker
-
Discharge Instructions:
Discharge Diagnosis/Procedures Urinary tract infection, acute kidney injury
Diet Regular
Activity As tolerated
Driving Restrictions As prior to admission
Bathing Restrictions None
Blood Work BMP on December 13
Instructions:
Stand-Alone Forms:
Changes to Home Medications: Yes
Discharge Medications:
DC Medications w/original date entered in [facility]
metoprolol succinate 25 mg tablet,extended release 24 hr 25 mg PO HS Blood Pressure 06/20/23
bupropion HCl 300 mg 24 hr tablet, extended release 300 mg PO DAILY Depression 08/09/23
omeprazole 40 mg capsule,delayed release 40 mg PO DAILY Gastrointestinal Issue 08/09/23
acetaminophen 325 mg tablet 650 mg (2 x 325 mg) PO Q6HPRN PRN ZUNIGA, mild pain, or fever >101F #0 tabs 08/19/23
prednisolone acetate 1 % eye drops,suspension 1 drp BOTH EYES DAILY 12/08/24
tramadol 50 mg tablet 50 mg PO DAILYPRN PRN moderate pain 12/08/24
trazodone 50 mg tablet 150 mg PO HS 12/08/24
zolpidem 10 mg tablet 10 mg PO HS Sleep 12/08/24
cefdinir 300 mg capsule 300 mg PO DAILY #5 caps 12/10/24
Home Medication Changes
Hold hydrochlorothiazide until you speak with Dr. Kirby.
Pending Results: No
--- NOTE | 2024-12-10 11:50 | W.PN.HOSP.TC ---
Addendum entered and electronically signed by Johnnie Martinez DO 12/12/24 11:41:
UTI presumably related to self-catheterization.
Original Note:
Today's Communication/Plan
-
discharge
Assessment / Plan
Assessment / Plan
General: Well Developed, Well Nourished, No Apparent Distress and Obese
HEENT: NormoCephalic, Moist mucous membranes, Nose Appears Normal and Ears Appear Normal
Respiratory: Clear
Cardiac: S1/S2, Regular Rhythm and Murmur
GI: Soft, Non Tender and Non Distended
Musculoskeletal: No Clubbing, No Cyanosis and No Edema
Skin: Warm and Dry; No Rash or Jaundice
Neuro: AOOx3
Psych: Calm
E. coli UTI -can change to oral antibx today. No signs/symptoms of sepsis.
Acute metabolic encephalopathy - due to UTI, SCOTT, resolved.
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 Creatinine improving, check BMP on 12/13 as outpatient. Follow up with PCP. Discussed with patient, daughter.
HCTZ stopped.
Acute on chronic anemia - suspect due to IVF related hemodilution.
Essential Hypertension
� Continue metoprolol succinate
� Hold hydrochlorothiazide
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 Noted on prior CT from 2022. Follow up with Dr. Ramírez. Discussed with patient, daughter.
-suspected small peripancreatic lymph nodes. Progressive diffuse atrophy of the pancreatic neck and proximal body. Neoplasm to be excluded.
Obesity due to excess calories
DNR
Dispo - med stable for d/c home today. Follow up with PCP. Discussed with daughter, RN.
32 min spent in discharge process.
Anticipated Discharge: Today
Subjective/Interval History
-
Date of Service: December 10, 2024
Patient seen, examined. Feeling better. No complaints.
Objective Data
-
Labs:
Laboratory Results
12/10/24
06:46
WBC 6.0
Hgb 8.8 L
Hct 26.1 L
Plt Count 160
Sodium 138
Potassium 4.0
Chloride 112 H
Carbon Dioxide 18 L
BUN 24 H
Creatinine 1.8 H
Glucose 87
Calcium 8.2 L
Total Bilirubin 1.3
AST 31
ALT 15
Alkaline Phosphatase 67
Vital Signs:
Vital Signs
Temp Pulse Resp BP Pulse Ox
98.0 F 66 18 120/51 95
12/10/24 07:33 12/10/24 07:33 12/10/24 07:33 12/10/24 07:33 12/10/24 07:33
I&O
12/09/24 12/10/24 12/11/24
06:59 06:59 06:59
Intake Total 480 / 480 1480 / 1480
Balance 480 / 480 1480 / 1480
Review of Systems
-
History Source: Patient
All other systems: Reviewed and negative
--- NOTE | 2024-12-10 12:14 | CM ---
Chart reviewed and patient is cleared for discharge to home no needs.
Plan; Home no needs, daughter to transport patient to home.
[2024-12-10] MEDS: NSS IV (13:44)
[2024-12-10] MEDS: PREVNAR 20 0.5 ML IM (13:49)
[2024-12-10] MEDS: ZOSYN IV (14:00)
[2024-12-10 14:28] VITALS: BP 161/58
--- NOTE | 2024-12-10 14:49 | PTCARENOTE ---
pt was discharged during this shift. she was awake, alert and oriented x 4. patient can make her needs known and understands when being spoken too. iv access removed without incident. she was provided her discharge instructions and this nurse
explained her medication list. patient was taken to the discharge are where her daughter was waiting for her
--- NOTE | 2024-12-12 07:44 | PN.CDI ---
CDI
- -
CDI:
Physician Documentation Request
Admit Date: 12/08/24 17:02
Dear Doctor Juan,
Please review the following and provide your response in the progress notes.
Clinical Indicators:
- Patient admit for UTI with confusion
- 12/08 H&P 'The patient has issues with urination, and self caths 4 times a day'
- UC positive for E coli
- Discharged on Cefdinir
Please clarify the relationship between these conditions:
Yes, _UTI__ is related to/associated with/due to _self catheterization__.
No, _UTI__ is not related to/associated with/due to _self catheterization_ but it is due to . (Please specify)
Unable to determine
Use of terms such as suspected, likely, concern for, or probable (associated with a specific diagnosis that is being evaluated, monitored, or treated as if it exists) are acceptable and can be coded in the inpatient setting, when documented at the
time of discharge.
Thank you,
Sara Orozco RN
CDI Specialist
Please use your independent medical judgment in providing your response.
== END 2024-12-10 14:35 | disposition home or self-care (01) | DRG 698 ==
LOC: 4 WEST ACU 17:02
PROVIDERS: Internal Medicine; ADMITTING PHYSICIAN Internal Medicine; ATTENDING PHYSICIAN Hospitalist; EMERGENCY PHYSICIAN Student in an Organized Health Care Education/Training Program; FAMILY PHYSICIAN Family Medicine
PROC: 3E0234Z Introduction of Serum, Toxoid and Vaccine into Muscle, Percutaneous Approach (ICD-10-PCS; 2024-12-10)
DX: T83.518A Infection and inflammatory reaction due to other urinary catheter, initial encounter (principal); G93.41 Metabolic encephalopathy; N39.0 Urinary tract infection, site not specified; F33.2 Major depressive disorder, recurrent severe without psychotic features; N17.9 Acute kidney failure, unspecified; K86.2 Cyst of pancreas; Z66 Do not resuscitate; I12.9 Hypertensive chronic kidney disease with stage 1 through stage 4 chronic kidney disease, or unspecified chronic kidney disease; N18.32 Chronic kidney disease, stage 3b; E78.2 Mixed hyperlipidemia; M81.0 Age-related osteoporosis without current pathological fracture; K21.9 Gastro-esophageal reflux disease without esophagitis; M51.369 Other intervertebral disc degeneration, lumbar region without mention of lumbar back pain or lower extremity pain; M48.061 Spinal stenosis, lumbar region without neurogenic claudication; K59.00 Constipation, unspecified; K57.30 Diverticulosis of large intestine without perforation or abscess without bleeding; G47.33 Obstructive sleep apnea (adult) (pediatric); D63.1 Anemia in chronic kidney disease; B96.20 Unspecified Escherichia coli [E. coli] as the cause of diseases classified elsewhere; Z79.899 Other long term (current) drug therapy; Z85.3 Personal history of malignant neoplasm of breast; Z98.84 Bariatric surgery status; Z98.1 Arthrodesis status; Z96.611 Presence of right artificial shoulder joint; Z23 Encounter for immunization; Y84.6 Urinary catheterization as the cause of abnormal reaction of the patient, or of later complication, without mention of misadventure at the time of the procedure
CPT/HCPCS: 70450; 74176; 80048; 80053; 81003; 81015; 82962; 85025; 85027; 87077; 87086; 87186; 96361; 96365; 99285

== ENCOUNTER 2024-12-12 17:01 | Inpatient (IN) | payer MEDICARE, OTHER, SELFPAY ==
[2024-12-12] VITALS (9 sets, daily range): BP systolic 92–157; BP diastolic 55–87; BMI 34.0; BMI 33.2
[2024-12-12 13:26] LABS: % Basophils 0.5 % (0-2); % Eosinophils 2.3 % (0-6); % Immature Granulocytes 0.4 % (0-0.5); % Lymphocytes 15.7 % (20.5-51.1); % Monocytes 7.9 % (1.7-9.3); % Neutrophils 73.2 % (42.2-75.2); Absolute Eosinophils 0.2 10^3/uL (0-0.7); Absolute Lymphocytes 1.3 10^3/uL (1.2-3.4); Absolute Monocytes 0.6 10^3/uL (0.1-0.6); Absolute Neutrophils 5.8 10^3/uL (1.4-6.5); Hematocrit 22.5 % (37.0-47.0); Hemoglobin 7.5 g/dL (12.0-16.0); Mean Corp Hgb Conc. 33.3 g/dL (33.0-37.0); Mean Corpuscular Hgb 31.1 pg (27.0-31.0); Mean Corpuscular Volume 93.4 fL (81.0-99.0); Mean Platelet Volume 10.8 fL (7.4-10.4); Nucleated Red Blood Cells % 0 %; Platelet Count 151 10^3/uL (130-400); Red Blood Cell Count 2.41 10^6/uL (4.20-5.40); Red Cell Dist. Width 12.1 % (11.5-14.5)
[2024-12-12 13:33] LABS: INR 1.15
[2024-12-12 13:34] LABS: APTT 40.6 Sec (23.4-35.0)
[2024-12-12 13:38] LABS: ALT (SGPT) 14 U/L (0-35); AST (SGOT) 30 U/L (14-36); Albumin 3.7 g/dl (3.5-5.0); Alkaline Phosphatase 59 U/L (38-126); Blood Urea Nitrogen 34 mg/dl (7-17); Calcium 8.1 mg/dl (8.4-10.2); Carbon Dioxide 21 mmol/L (22-30); Chloride 107 mmol/L (98-107); Glucose 93 mg/dl (70-99); Potassium 4.4 mmol/L (3.5-5.1); Sodium 138 mmol/L (135-145); Total Bilirubin 1.7 mg/dl (0.2-1.3); Total Protein 5.8 g/dl (6.3-8.2); eGFR 25.72
--- NOTE | 2024-12-12 15:44 | ED.GENMED ---
History of Present Illness
General
Chief Complaint: Rectal Bleeding
Source: patient and family
Time Seen by Provider: 12/12/24 15:06
History of Present Illness
History of Present Illness:
This an 84-year-old female who presents with rectal bleeding. The patient states that she was recently hospitalized for urinary tract infection and admits that while in the hospital she was having dark bloody stool. Daughter admits that she has
had a diarrhea problem for some time. The patient states that she then noticed when she was home but it was persisting and clearly bloody stool. She also had a nosebleed this morning that took some hours to resolve. Patient mostly reports that
she just feels very weak. She states just walking across the room makes her feel short of breath. Daughter also admits that she has had anemia in the past and she had similar symptoms. Patient denies abdominal pain to me.
Past History
Past History
ED Past Medical History: GERD, HTN, Hypercholesterolemia, Psychiatric (Depression) and Other (UTI)
ED Past Surgical History: Cholecystectomy, Gynecological, Orthopedic (carpal tunnel right hand, right shoulder replacement and R wrist hardware) and Other (gastric bypass)
Social History
Tobacco: Non-smoker
Drug: None
Personal:
Living: with family
Employment: Retired
Family History
Family History: Other
Phy Exam
Physical Exam
Physical Exam:
CONSTITUTIONAL Patient alert and oriented to person, place and time. Well-appearing. Vital signs reviewed.
HEAD atraumatic, normocephalic.
EYES eyelids normal to inspection, Extraocular muscles intact, Conjunctiva normal, Sclera normal.
NECK normal range of motion, Trachea midline, no jugular venous distention.
RESPIRATORY CHEST No respiratory distress noted, Chest expansion equal
ABDOMEN mild left lower quadrant and suprapubic tenderness, mild diffuse tenderness, Bowel sounds normal. No distention.
Rectal exam gross blood noted
BACK normal inspection, no obvious deformities
UPPER EXTREMITY range of motion normal, Motor strength normal, no cyanosis, no edema.
LOWER EXTREMITY range of motion normal, Motor strength normal, no cyanosis, no edema.
NEURO Speech normal, No focal motor deficits, Kemal coma scale 15, Memory normal, Cranial Nerves intact to screening exam.
SKIN skin warm, dry, and normal in color.
Course
Orders/Labs/Results
Orders:
Orders
12/12/24 13:04
EKG [Electrocardiogram (*1)] Urgent
Reason for Study: Other
Other Reason for Exam: gi bleed
12/12/24 13:05
EKG- Treatment ONCE
12/12/24 13:15
Type+Screen Urgent
Complete Blood Count/With Diff Urgent
Comprehensive Metabolic Panel Urgent
PTT Urgent
Prothrombin Time Urgent
12/12/24 15:43
* Blood Bank Products Urgent
Blood Bank Products: *Packed RBC Leuko(PRBC's)
Quantity: 2
Transfuse Today: Yes
Reason: Anemia
Vital Signs- Treatment ONCE
Frequency: Once
12/12/24 15:44
IV Insert/Care/Rem.- Treatment PRN
Urinalysis Reflex To Culture Urgent
Abnormal Lab Results
12/12/24
13:15
RBC 2.41 L 10^6/uL
(4.20-5.40)
Hgb 7.5 L g/dL
(12.0-16.0)
Hct 22.5 L %
(37.0-47.0)
MCH 31.1 H pg
(27.0-31.0)
MPV 10.8 H fL
(7.4-10.4)
Lymphocytes % 15.7 L %
(20.5-51.1)
PT 15.0 H Sec
(11.4-14.6)
APTT 40.6 H Sec
(23.4-35.0)
Carbon Dioxide 21 L mmol/L
(22-30)
BUN 34 H mg/dl
(7-17)
Creatinine 1.9 H mg/dL
(0.6-1.0)
Calcium 8.1 L mg/dl
(8.4-10.2)
Total Bilirubin 1.7 H mg/dl
(0.2-1.3)
Total Protein 5.8 L g/dl
(6.3-8.2)
12/12/24 13:15
12/12/24 13:15
Vital Signs
Initial and Last Documented VS:
Initial Vital Signs
Temp Pulse Resp BP Pulse Ox
98.7 F 69 16 92/68 98
12/12/24 13:00 12/12/24 13:00 12/12/24 13:00 12/12/24 13:00 12/12/24 13:00
Last Documented Vital Signs
Temp Pulse Resp BP Pulse Ox
98.7 F 69 16 92/68 98
12/12/24 13:00 12/12/24 13:00 12/12/24 13:00 12/12/24 13:00 12/12/24 13:00
MDM/Problems Addressed
Differential Diagnosis Includes:
Diverticular bleed, AVM, hemorrhagic colitis
MDM/Problems Addressed:
Acute GI bleed, acute symptomatic anemia, chronic renal insufficiency
*Pulse Oximetry
Patient hypoxic: no
*Critical Care Note
Total Time (30-74mins, 75-104mins- exclusive of procedures): Not Applicable
Data Reviewed
Review of Other/Old Records Reveals: Labs (Previous hemoglobins reviewed showing progressive drop in hemoglobin) and Discharge Summary (Discharge summary from December 10 reviewed revealing recent UTI and metabolic encephalopathy)
Source: patient and family (Daughter see above)
Prescriptions/Medications Considered But Not Given:
Consider Protonix but she has bright red blood per rectum I suspect lower GI bleed
Patient Management
Discussion with other providers: Hospitalist
Escalation/DeEscalation of care consider admission/obs:
84-year-old female presents with persistent weakness and shortness of breath with exertion. Found to have GI bleeding. She admits that when she was in the hospital she had some which she suspects blood in her stool. She hoped it would stop. Her
doctor wanted her to come in for consideration of the transfusion. Case discussed with hospitalist. Transfuse packed red blood cells and admit.
ED Attending Note
-
Portions of this chart may have been created with voice recognition software.� Occasional wrong word or��sound alike� substitutions may have occurred due to the inherent limitations of voice recognition software.
Discharge Plan
Departure
Patient Disposition: Admit
Date of Disposition: 12/12/24
Time of Disposition: 15:45
Admit to: Telemetry
Presentation/result/management discussed w/ accepting MD/DO: Hospitalist
Discharge Problem:
Acute GI bleeding, Symptomatic anemia
Prescriptions:
No Action
metoprolol succinate 25 mg Tablet Extended Release 24 Hr
25 mg PO HS
omeprazole 40 mg Capsule,Delayed Release(Dr/Ec)
40 mg PO DAILY
bupropion HCl 300 mg Tablet Extended Release 24 Hr
300 mg PO DAILY
trazodone 50 mg Tablet
150 mg PO HS
tramadol 50 mg Tablet
50 mg PO DAILYPRN PRN (Reason: moderate pain)
prednisolone acetate 1 % Drops,Suspension
1 drp BOTH EYES DAILY
zolpidem 10 MG tablet
10 mg PO HS
Patient Comments:
12/08/24: last filled 11/16/24, 30 tabs for 30 days from [facility]
cefdinir 300 mg capsule
300 mg PO DAILY Qty: 5 0RF
Interventions
Interventions:
*Risk Screen - Suicide Last Done: 12/12/24 13:00
*Neglect/Abuse Screening Last Done: 12/12/24 13:00
Discharge Date and Time
Print Language: NEPALESE
[2024-12-12 16:26] LABS: GGTP 13 U/L (12-43)
--- NOTE | 2024-12-12 16:27 | HPS.HSE ---
Family Physician
-
Family Physician: Melquiades Kirby
Chief Complaint
-
Weakness, dyspnea on exertion, bloody stools
History of Present Illness
84-year-old female recently hospitalized and discharged 2 days ago, returns today for complaints of hematochezia, weakness and dyspnea on exertion.
Last night while lying in bed she had substernal chest pressure.
Has also had chronic loose stools for roughly 1 month. Denies episodes of constipation. Is not on a bowel regimen. Apparently passed multiple bloody bowel movements over the past 24 hours.
Denies abdominal pain, nausea or vomiting.
Medical History
Past Medical History
Past Medical History: Reports Other
Additional Past Medical History:
Right-sided breast cancer -2015
Essential hypertension
CKD 3B
Diverticulosis
Chronic anemia
Pancreatic head lesion
Osteoarthritis
GERD
Obesity
Depression
Past Surgical History: Reports Other
Additional Past Surgical History:
Cholecystectomy
Right carpal tunnel release
Right shoulder replacement
Right wrist hardware
Can-en-Y gastric bypass 25 years ago
Social History
Tobacco: Non-smoker
Alcohol: None
Drug: None
Personal:
Living: Alone
Family History
Family History: Not pertinent
Allergies / Home Medications
Allergies reflects when Allergies were last updated in [facility].
Home Medications with original date entered in [facility]
Allergy/Medication List:
Allergies
Allergy/AdvReac Type Severity Reaction Status Date / Time
No Known Allergies Allergy Verified 12/12/24 13:00
Home Medications
metoprolol succinate 25 mg tablet,extended release 24 hr 25 mg PO HS Blood Pressure 06/20/23
bupropion HCl 300 mg 24 hr tablet, extended release 300 mg PO DAILY Depression 08/09/23
omeprazole 40 mg capsule,delayed release 40 mg PO DAILY Gastrointestinal Issue 08/09/23
prednisolone acetate 1 % eye drops,suspension 1 drp BOTH EYES DAILY 12/08/24
tramadol 50 mg tablet 50 mg PO DAILYPRN PRN moderate pain 12/08/24
trazodone 50 mg tablet 150 mg PO HS 12/08/24
zolpidem 10 mg tablet 10 mg PO HS Sleep 12/08/24
cefdinir 300 mg capsule 300 mg PO DAILY #5 caps 12/10/24
Review of Systems
-
History Source: Patient
A 12 point ROS was completed and negative except as noted: Yes
Physical Exam
Vital Signs
Vital Signs
Temp Pulse Resp BP Pulse Ox
98.3 F 73 17 146/55 97
12/12/24 16:01 12/12/24 16:01 12/12/24 16:01 12/12/24 16:01 12/12/24 16:01
Physical Exam
General: Well Developed, Well Nourished, No Apparent Distress and Comfortable
HEENT: NormoCephalic, Anicteric and Moist mucous membranes
Respiratory: Clear
Cardiac: S1/S2 and Regular Rhythm
Breast: Deferred by me
GI: Soft, Non Tender and Non Distended
Genito-urinary: Deferred by me
Musculoskeletal: No Clubbing, No Cyanosis and No Edema
Skin: Warm and Dry
Neuro: AO x 3
Hematologic/Lymphatic: No Lymphadenopathy
Psych: Calm
Laboratory Results
-
12/12/24 13:15
12/12/24 13:15
Laboratory Results
PT 15.0 Sec (11.4-14.6) H 12/12/24 13:15
INR 1.15 12/12/24 13:15
APTT 40.6 Sec (23.4-35.0) H 12/12/24 13:15
Total Bilirubin 1.7 mg/dl (0.2-1.3) H 12/12/24 13:15
AST 30 U/L (14-36) 12/12/24 13:15
ALT 14 U/L (0-35) 12/12/24 13:15
Alkaline Phosphatase 59 U/L (38-126) 12/12/24 13:15
Impression/Plan
-
Acute lower GI bleed -relatively stable hemodynamically. Admit to [facility]. Transfuse 1 unit of blood. Consult GI. Differential diagnosis includes diverticular bleed versus other. Clear liquid diet.
Symptomatic acute blood loss anemia -acute on chronic anemia with acute component due to blood loss. Baseline hemoglobin around 9-10. Hemoglobin 7.5 today. Transfuse as above.
SCOTT on CKD 3b -baseline creatinine 1.3 noted on December 03. She was admitted to the hospital on December 08 with a creatinine 2.0. Today is 1.9. Still not back to baseline. Etiology of SCOTT unclear. Check renal and bladder ultrasound. Check UA.
Chronic diarrhea -unclear etiology. Denies using bowel medications. Doubt infectious diarrhea. Will ask GI opinion.
Recent UTI -discharged on 12/10 on oral cefdinir to complete 5 more days. Resume in the hospital.
Essential hypertension -stable.
GERD
Chronic pancreatic head lesion -noted on recent CT. 1.4 cm. Patient to follow-up with Dr. Ramírez.
History of right breast cancer -treated in 2015, lumpectomy, chemotherapy, radiation.
Obesity due to excess calories
DNR -confirmed with patient.
[2024-12-12 16:33] LABS: Direct Bilirubin 0.3 mg/dl (0.0-0.4)
[2024-12-12] MEDS: DESYREL 150 MG PO (21:49)
[2024-12-12] MEDS: TOPROL XL 25 MG PO (21:49)
[2024-12-12] MEDS: LR 1000 IV (21:49)
[2024-12-12] MEDS: AMBIEN 10 MG PO (21:49)
--- NOTE | 2024-12-13 01:07 | PTCARENOTE ---
Addendum entered by Lynn Naqvi RN 12/13/24 04:55:
Pt. woke up at 0200, rang call bills for assist, no longer confused. Voided on BSC, no BM. Will re-attempt UA collection in future (specimen contaminated with old BM) - marnie care given.
Original Note:
Rec'd pt. into room 337-1 from ED AAOx3; VSS; pt. able to ambulate with assist x 1, gait steady (assist with IV pole). No complaints of pain/discomfort. Unit PRBC's hanging from ED, transfusion completed at 210 with no S&S transfusion reaction.
Pt. assisted to BR, had one mod. burgundy bloody loose BM. Requested nighttime meds (including Ambien and Trazodone, which pt. states she takes every night, doses verified with her). Doses given at 2149 and pt. went to sleep.
Approx. one hour later patient found laying at bottom of bed, confused, forgot she was in the hospital. Able to be reoriented but still forgetful, sleepy. BP 157/61, HR 70's, pulse ox 95% RA. Pt. assisted to have one very small bloody BM on BSC,
assisted back to bed, bed alarm placed & fall precautions initiated. Hospitalist SAGRARIO Ramires notified of pt.'s confusion and saw pt., instructed to monitor for further bloody BM's and notify Keyla (CBC ordered for AM). Pt. has since fallen asleep,
no more BM's thus far. Bed alarm on.
[2024-12-13 06:07] LABS: % Basophils 0.6 % (0-2); % Eosinophils 6.1 % (0-6); % Immature Granulocytes 0.3 % (0-0.5); % Monocytes 8.4 % (1.7-9.3); % Neutrophils 68.6 % (42.2-75.2); Absolute Eosinophils 0.4 10^3/uL (0-0.7); Absolute Monocytes 0.5 10^3/uL (0.1-0.6); Absolute Neutrophils 4.2 10^3/uL (1.4-6.5); Hematocrit 22.2 % (37.0-47.0); Hemoglobin 7.7 g/dL (12.0-16.0); Mean Corp Hgb Conc. 34.7 g/dL (33.0-37.0); Mean Corpuscular Hgb 31.6 pg (27.0-31.0); Mean Platelet Volume 10.5 fL (7.4-10.4); Nucleated Red Blood Cells % 0 %; Platelet Count 141 10^3/uL (130-400); Red Blood Cell Count 2.44 10^6/uL (4.20-5.40); Red Cell Dist. Width 12.2 % (11.5-14.5); White Blood Cell Count 6.2 10^3/uL (4.8-10.8)
[2024-12-13 06:36] LABS: Blood Urea Nitrogen 30 mg/dl (7-17); Calcium 7.9 mg/dl (8.4-10.2); Carbon Dioxide 23 mmol/L (22-30); Chloride 108 mmol/L (98-107); Estimated Creatinine Clearance 23 ml/min; Glucose 84 mg/dl (70-99); Potassium 3.9 mmol/L (3.5-5.1); Sodium 138 mmol/L (135-145); eGFR 31.61
[2024-12-13 07:05] VITALS: BP 154/64
--- NOTE | 2024-12-13 08:52 | CON.GI ---
Addendum entered and electronically signed by SAGRARIO Ayoub 12/13/24 15:10:
12/13 CT oral contrast
1. No significant acute abnormality identified in the abdomen or pelvis, within the limits of unenhanced CT, as described above.
2. Small bilateral pleural effusions, new from prior.
will proceed with colonoscopy for AM 12/14 with bleeding to exclude any source- mass, colitis, etc
Addendum entered and electronically signed by Malia Garces MD 12/13/24 14:54:
I saw and examined the patient.
The COTTON WASHER's note was reviewed and I agree with the note.
-rectal bleeding /acute on chronic anemia. Possible differential-diverticular bleeding versus colitis versus hemorrhoids versus etc. last colonoscopy 2018�diverticulosis
--chronic LLQ -seen by Dr. Najera.office notes reviewed. Slightly worse on admission
-hx constipation with diarrhea and incontinence
-pancreatic cyst- prior IPMN with EUS 2015- some increased growth on CT 12/08
-hx mitesh en y bypass
plan
Continue monitor H&H
clear liquid diet
Follow-up CT abdomen/pelvis with contrast
If no evidence of diverticulitis will recommend colonoscopy tomorrow. Patient is agreeable with the plan
Follow-up with Dr. Najera as outpatient with regard to pancreatic cyst-MRI abdomen versus EUS based on CT results
Original Note:
Consultation
-
Date/Time Consultation Requested: 12/12/24 194
Date/Time Consultation Performed: 12/13/24 0850
Requesting Provider: Johnnie Martinez DO
Performing Provider: SAGRARIO Cronin, Malia Garces MD
Reason for Consultation: GI bleed
Medical History
Chief Complaint / HPI
Chief Complaint: GI bleed
History of Present Illness:
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
head lesion(noted in past-- side branch IPMN 1 cm in August now 1.4 cm-- prior EUS 2015 and MRI 2019 noted stable at that time with recommended 1 year follow up MRI) constipation and diarrhea, urinary retention with self st cath 4 times per day
with recent admission with UTI. She now presents with rectal bleeding. Per pt and daughter may have had intermittent bleeding but now noted with increased bleeding day prior to admission passing dark and red stools and continued dark blood stools
since admission. She also admits to some acute on chronic LLQ pain. She completed CT 12/08 with UTI with no renal calculi, no obstruction, constipation with mild to moderate fecal burden, 1.4 cm panc mass and suspected small peripancreatic nodes
with progression.
At this time pt admits to bleeding as above and abdominal pain. She also admits to diarrhea with incontinence and periods of constipation. She was recommended Metamucil if not effective then Miralax last fall for concern for overflow but states
unable to take and no current bowel regiment. She denies dysphagia, GERD, nausea, or vomiting. last EGD 2019 healthy Mitesh en Y, colon 2018 with diverticulosis. hbg 7.5 on admission.
Past Medical History
Past Medical History: Cancer (right sided breast cancer 2014 with chemo/radiation and surgery ), GERD, HTN, Hypercholesterolemia, Renal Failure, Psychiatric (depression) and Other (UTI, diverticulosis, anemia, pancreatic head lesion, osteoarthritis,
obesity, FLETCHER, hearing loss, migraines, PVT, CBD dilation, carotid stenosis )
Past Surgical History: Cardiac (TAVR), Cholecystectomy, Gynecological (ALEX/SBO, bladder suspension), Orthopedic (carpal tunnel, right shoulder replacement and right wrist, cervical fusion) and Other (rou-en Y gastric bypass 25 years ago, breast
lumpectomy)
Social History
Tobacco: Non-Smoker
Alcohol: None
Drug: None
Living: Alone (family within property )
Employment: Retired
Family History
Family History: Other (father/sister with OR no family hx GI issues )
Allergies / Home Medications
Allergy/AdvReac Type Severity Reaction Status Date / Time
No Known Allergies Allergy Verified 12/12/24 13:00
�Medication �Instructions �Recorded
metoprolol succinate 25 mg 25 mg PO HS Blood Pressure 06/20/23
tablet,extended release 24 hr
bupropion HCl 300 mg 24 hr tablet, 300 mg PO DAILY Depression 08/09/23
extended release
omeprazole 40 mg capsule,delayed 40 mg PO DAILY Gastrointestinal 08/09/23
release Issue
prednisolone acetate 1 % eye 1 drp BOTH EYES DAILY 12/08/24
drops,suspension
tramadol 50 mg tablet 50 mg PO DAILYPRN PRN moderate pain 12/08/24
trazodone 50 mg tablet 150 mg PO HS 12/08/24
zolpidem 10 mg tablet 10 mg PO HS Sleep 12/08/24
cefdinir 300 mg capsule 300 mg PO DAILY #5 caps 12/10/24
Review of Systems
-
History Source: Patient and Family
Constitutional: Reports Fatigue
EENT: Reports No Symptoms
Respiratory: Reports No Symptoms
Cardiac: Reports No Symptoms
Abdomen/GI: Reports Abdominal Pain, Diarrhea, Constipated, Bloody Stools and Black Stools
: Reports Other (hx chronic st cath 4 times per day )
Musculoskeletal: Reports No Symptoms
Skin: Reports No Symptoms
Neurological: Reports Weakness
Endocrine: Reports No Symptoms
Hematologic/Lymphatic: Reports Bleeding
Vital Signs
Temp Pulse Resp BP Pulse Ox
98.0 F 68 17 154/64 96
12/13/24 07:05 12/13/24 07:05 12/13/24 07:05 12/13/24 07:05 12/13/24 07:05
Physical Exam
Exam
General: Well Developed, Well Nourished and No Apparent Distress
HEENT: Normocephalic and Anicteric
Respiratory: Clear
Cardiac: Regular Rhythm
GI: Soft, Non Distended and Tender (LLQ )
Rectal: Hem Positive, Maroon Stools and Other (no impaction)
Musculoskeletal: No Clubbing and No Cyanosis
Skin: Warm and Dry
Neuro: Awake, Alert, AO x 3 and Other (some forgetfulness )
Psych: Calm
Results
WBC 6.2 10^3/uL (4.8-10.8) 12/13/24 05:19
Hgb 7.7 g/dL (12.0-16.0) L 12/13/24 05:19
Hct 22.2 % (37.0-47.0) L 12/13/24 05:19
MCV 91.0 fL (81.0-99.0) 12/13/24 05:19
Plt Count 141 10^3/uL (130-400) 12/13/24 05:19
Absolute Neuts (auto) 4.2 10^3/uL (1.4-6.5) 12/13/24 05:19
PT 15.0 Sec (11.4-14.6) H 12/12/24 13:15
INR 1.15 12/12/24 13:15
APTT 40.6 Sec (23.4-35.0) H 12/12/24 13:15
Sodium 138 mmol/L (135-145) 12/13/24 05:19
Potassium 3.9 mmol/L (3.5-5.1) 12/13/24 05:19
Chloride 108 mmol/L (98-107) H 12/13/24 05:19
Carbon Dioxide 23 mmol/L (22-30) 12/13/24 05:19
BUN 30 mg/dl (7-17) H 12/13/24 05:19
Creatinine 1.6 mg/dL (0.6-1.0) H 12/13/24 05:19
Calcium 7.9 mg/dl (8.4-10.2) L 12/13/24 05:19
Total Bilirubin 1.7 mg/dl (0.2-1.3) H 12/12/24 13:15
AST 30 U/L (14-36) 12/12/24 13:15
ALT 14 U/L (0-35) 12/12/24 13:15
Alkaline Phosphatase 59 U/L (38-126) 12/12/24 13:15
Diagnostic Image Results:
12/08 CT Abd/pel Without Iv Or Oral
No renal or ureteral calculus. No bladder calculus. No evidence of obstructive uropathy.
Diverticulosis without acute diverticulitis.
No bowel obstruction. Constipation with mild to moderate colonic fecal burden.
Interval development of 1.4 cm low-attenuation mass in the pancreatic head, and suspected small peripancreatic lymph nodes. Progressive diffuse atrophy of the pancreatic neck and proximal body. Neoplasm to be excluded.
03/2020- EGD- amy - Normal esophagus.
- Mitesh-en-Y gastrojejunostomy with gastrojejunal
anastomosis characterized by healthy appearing mucosa.
- No specimens collected.
10/2019 - Nava - Diverticulosis in the sigmoid colon.
- The examination was otherwise normal.
- No specimens collected
12/2015 Amy EUS- 1) Evidence of Mitesh-en-Y gastric bypass with healthy
appearing gastro-jejunal anastomosis. The biliary system
was unable to be visualized due to the distance
secondary to the previous surgery. I reviewed the MRI
imaging again with a second radiologist (Dr. Garza)
who states that the dilated bile duct does not seem
secondary to malignancy. I will do surveillance with
repeat MRI in 3 months. I will order a CEA and CA 19-9.
2) 8mm pancreatic body cyst with communication with side
branch; side branch IPMN.
Assessment / Plan
-
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
head lesion(noted in past-- side branch IPMN 1 cm in August now 1.4 cm-- prior EUS 2015 and MRI 2019 noted stable at that time with recommended 1 year follow up MRI) constipation and diarrhea, urinary retention with self st cath 4 times per day
with recent admission with UTI. She now presents with rectal bleeding. Per pt and daughter may have had intermittent bleeding but now noted with increased bleeding day prior to admission passing dark and red stools and continued dark blood stools
since admission. She also admits to some acute on chronic LLQ pain, diarrhea, constipation and prior intermittent bleeding. Recommended bowel regiment last fall but no current meds. She completed CT 12/08 with UTI with no renal calculi, no
obstruction, constipation with mild to moderate fecal burden, 1.4 cm panc mass and suspected small peripancreatic nodes with progression. hbg 7.5 on admission.
03/2020- EGD- amy - Normal esophagus.
- Mitesh-en-Y gastrojejunostomy with gastrojejunal
anastomosis characterized by healthy appearing mucosa.
- No specimens collected.
10/2019 - Nava - Diverticulosis in the sigmoid colon.
- The examination was otherwise normal.
- No specimens collected
12/2015 Amy EUS- 1) Evidence of Mitesh-en-Y gastric bypass with healthy
appearing gastro-jejunal anastomosis. The biliary system
was unable to be visualized due to the distance
secondary to the previous surgery. I reviewed the MRI
imaging again with a second radiologist (Dr. Garza)
who states that the dilated bile duct does not seem
secondary to malignancy. I will do surveillance with
repeat MRI in 3 months. I will order a CEA and CA 19-9.
2) 8mm pancreatic body cyst with communication with side
branch; side branch IPMN.
-rectal bleeding - red/burgundy stool with intermittent bleeding prior to onset
-acute on chronic anemia- hx bypass with acute blood loss
-hx constipation with diarrhea and incontinence ? overflow
-chronic LLQ - slight worse on admission
-pancreatic cyst- prior IPMN with EUS 2015- some incresaed growth on CT 12/08
-hx mitesh en y bypass
-recent UTI
other med problems:
-TAVR
-breast CA -surgery/chemo/rad
-HTN
-hyperlipidemia
-CKD
-diverticulosis
-GERD
-depression
-obesity
-FLETCHER
-urinary retention with frequent st cath
PLAN:
etiology of bleeding with LLQ pain related to lower GI bleeding colitis/stercorcal colitis with some constipation, diverticular bleed, vs other hx prior radiation- radiation colitis indiffererential -- some intermittent bleeding cannot rule out
underlying colon lesion last colonoscopy [address] with oral contrast cannot do IV with creat
trend hbg transfuse <7
monitor stool output- anticipate further burgundy stool wtih noted blood on rectal exam
recent CT with increased panc mass growth -- await repeat CT -- if increased consider MRI (was due aug 2025 for MRI per OP plan)
pt will need eventual bowel regiment on discharge with likely overflow issues
cont PPI with hx GERD
daughter updated
Pt is due follow up keshav porsha 12/24 at 10:30 aM
-
-
Thank you for consultation and allowing me to participate in the patient's care. Please call the cash control specialist GI physician during the after hours with any questions or concerns.
--- NOTE | 2024-12-13 08:57 | W.PN.HOSP.TC ---
Today's Communication/Plan
-
Monitor hemoglobin
CT abdomen
Bladder scan
GI consult
Assessment / Plan
Assessment / Plan
Gen-AAOx3, NAD
HEENT-NC, AT, anicteric, clear oral mm
Neck-supple
CV-reg, no M, +S1/S2
Lungs-clear B/L
Abd-soft, tender left lower quadrant without rebound
Ext-no edema
Musculoskeletal-no cyanosis, clubbing
Skin-warm and dry
Neuro-grossly non-focal
Psych-calm, cooperative
Acute lower GI bleed -relatively stable hemodynamically. Possibly diverticular bleed. Awaiting GI input. Last BM recorded last night, emilia.
Check CT of the abdomen without contrast given the left lower quadrant tenderness and GI bleed.
Symptomatic acute blood loss anemia -acute on chronic anemia with acute component due to blood loss. Baseline hemoglobin around 9-10. Hemoglobin 7.7 after 1 unit of blood. Recheck this afternoon, may need second unit.
SCOTT on CKD 3b -baseline creatinine 1.3 noted on December 03. She was admitted to the hospital on December 08 with a creatinine 2.0. Creatinine improved 1.6 this morning. Renal ultrasound shows moderate chronic bilateral renal disease, no
hydronephrosis or nephrolithiasis. Large postvoid residual in the bladder, 115 cc. Will order bladder scans.
Chronic diarrhea -unclear etiology. Denies using bowel medications. Doubt infectious diarrhea. Will ask GI opinion.
Recent UTI -discharged on 12/10 on oral cefdinir to complete 5 more days. Resumed in the hospital.
Essential hypertension -stable.
GERD
Chronic pancreatic head lesion -noted on recent CT. 1.4 cm. Patient to follow-up with Dr. Ramírez.
History of right breast cancer -treated in 2014, lumpectomy, chemotherapy, radiation.
Obesity due to excess calories
DNR -confirmed with patient.
Updated daughter on the phone.
Anticipated Discharge: 24 - 48 hours
Subjective/Interval History
-
Date of Service: December 13, 2024
Patient seen and examined. Denies further bleeding. Denies abdominal pain.
Objective Data
-
Labs:
Laboratory Results
12/13/24
05:19
WBC 6.2
Hgb 7.7 L
Hct 22.2 L
Plt Count 141
Sodium 138
Potassium 3.9
Chloride 108 H
Carbon Dioxide 23
BUN 30 H
Creatinine 1.6 H
Glucose 84
Calcium 7.9 L
Vital Signs:
Vital Signs
Temp Pulse Resp BP Pulse Ox
98.0 F 68 17 154/64 96
12/13/24 07:05 12/13/24 07:05 12/13/24 07:05 12/13/24 07:05 12/13/24 07:05
I&O
12/12/24 12/13/24 12/14/24
06:59 06:59 06:59
Intake Total 1460 / 1460
Balance 1460 / 1460
Review of Systems
-
History Source: Patient
All other systems: Reviewed and negative
[2024-12-13] MEDS: WELLBUTRIN XL (24 hour extended release) 300 MG PO (09:35)
[2024-12-13] MEDS: PROTONIX IV 40 MG IV (09:35)
[2024-12-13] MEDS: OMNICEF 300 MG PO (09:35)
[2024-12-13] MEDS: NSS (PRESERVATIVE FREE) 10 ML IV (09:36)
[2024-12-13] MEDS: PRED FORTE 1% EYE DROPS 1 DROP BOTH EYES (09:36)
[2024-12-13] MEDS: OMNIPAQUE 50 ML PO (09:36)
[2024-12-13] MEDS: LR 1000 IV (09:41)
[2024-12-13 12:05] LABS: Hematocrit 23.5 % (37.0-47.0); Hemoglobin 8.5 g/dL (12.0-16.0)
[2024-12-13 15:05] VITALS: BP 124/64
--- NOTE | 2024-12-13 16:10 | CM ---
Alert awake oriented patient who lives with her dgt Juana in a one story home with 1 steps to enter.She is independent in driving and in all activities of daily living.Offered VN she declined.
No adaptive devices
[facility] hx / no SNF
Pharmacy [facility]
PCP Dr Kirby
PLAN Home no needs
[2024-12-13] MEDS: NULYTELY SOLUTION 4 LITERS PO (17:07)
[2024-12-13] MEDS: DESYREL 150 MG PO (21:15)
[2024-12-13] MEDS: TOPROL XL 25 MG PO (21:16)
[2024-12-13] MEDS: AMBIEN PO (21:20)
[2024-12-13 22:54] VITALS: BP 180/62
[2024-12-13 23:00] VITALS: BP 177/67
[2024-12-13] MEDS: APRESOLINE 5 MG IV (23:34)
[2024-12-14] VITALS (7 sets, daily range): BP systolic 21–186; BP diastolic 55–70
[2024-12-14] MEDS: LR 1000 IV (04:14)
[2024-12-14 06:30] LABS: Blood Urea Nitrogen 18 mg/dl (7-17); Calcium 8.3 mg/dl (8.4-10.2); Carbon Dioxide 20 mmol/L (22-30); Chloride 111 mmol/L (98-107); Estimated Creatinine Clearance 28 ml/min; Glucose 88 mg/dl (70-99); Potassium 3.7 mmol/L (3.5-5.1); Sodium 139 mmol/L (135-145); eGFR 40.55
[2024-12-14 06:54] LABS: % Basophils 0.6 % (0-2); % Eosinophils 6.3 % (0-6); % Immature Granulocytes 0.3 % (0-0.5); % Lymphocytes 13.5 % (20.5-51.1); % Monocytes 8.6 % (1.7-9.3); % Neutrophils 70.7 % (42.2-75.2); Absolute Eosinophils 0.4 10^3/uL (0-0.7); Absolute Lymphocytes 0.9 10^3/uL (1.2-3.4); Absolute Monocytes 0.6 10^3/uL (0.1-0.6); Absolute Neutrophils 4.5 10^3/uL (1.4-6.5); Hematocrit 22.9 % (37.0-47.0); Mean Corp Hgb Conc. 34.9 g/dL (33.0-37.0); Mean Corpuscular Hgb 31.3 pg (27.0-31.0); Mean Corpuscular Volume 89.5 fL (81.0-99.0); Nucleated Red Blood Cells % 0 %; Red Blood Cell Count 2.56 10^6/uL (4.20-5.40); Red Cell Dist. Width 12.3 % (11.5-14.5); White Blood Cell Count 6.4 10^3/uL (4.8-10.8)
[2024-12-14] MEDS: PROTONIX IV 40 MG IV (08:10)
[2024-12-14] MEDS: PRED FORTE 1% EYE DROPS 1 DROP BOTH EYES (08:10)
[2024-12-14] MEDS: NSS (PRESERVATIVE FREE) 10 ML IV (08:12)
--- NOTE | 2024-12-14 08:12 | W.PN.HOSP.TC ---
Addendum entered and electronically signed by Johnnie Martinez DO 12/14/24 11:58:
Spoke with GI service.
Colonoscopy completed but was not a great prep.
No obvious bleeding noted. Suspicion is that she had a diverticular bleed. Severe diverticulosis noted.
No polyps or hemorrhoids noted.
Medically stable for discharge this afternoon. Discussed with GI service.
Updated daughter Juana on the phone with discharge instructions.
Recommend CBC and BMP next week with her primary care doctor.
Follow-up with PCP and GI (Dr. Najera).
Original Note:
Today's Communication/Plan
-
Await colonoscopy
Assessment / Plan
Assessment / Plan
Gen-AAOx3, NAD
HEENT-NC, AT, anicteric, clear oral mm
Neck-supple
CV-reg, no M, +S1/S2
Lungs-clear B/L
Abd-soft, tender left lower quadrant without rebound
Ext-no edema
Musculoskeletal-no cyanosis, clubbing
Skin-warm and dry
Neuro-grossly non-focal
Psych-calm, cooperative
Hospital-acquired delirium -nursing reports that she was confused last night. Her Ambien dose was held and she subsequently did not sleep.
Acute lower GI bleed -relatively stable hemodynamically. Possibly diverticular bleed. CT abdomen/pelvis negative. Awaiting colonoscopy.
Symptomatic acute blood loss anemia -acute on chronic anemia with acute component due to blood loss. Baseline hemoglobin around 9-10. Hemoglobin 8.0 after 1 unit of blood.
SCOTT on CKD 3b -baseline creatinine 1.3, creatinine back to baseline. Renal ultrasound shows moderate chronic bilateral renal disease, no hydronephrosis or nephrolithiasis. Large postvoid residual in the bladder, 115 cc. Monitor bladder scans.
Chronic diarrhea -unclear etiology. Denies using bowel medications. Doubt infectious diarrhea. Will ask GI opinion.
Recent UTI -discharged on 12/10 on oral cefdinir to complete 5 more days. Resumed in the hospital.
Essential hypertension -stable.
GERD
Chronic pancreatic head lesion -noted on recent CT. 1.4 cm. Patient to follow-up with Dr. Ramírez.
History of right breast cancer -treated in 2015, lumpectomy, chemotherapy, radiation.
Chronic insomnia - Ambien dependent.
Obesity due to excess calories
DNR -confirmed with patient.
Updated daughter on the phone.
Anticipated Discharge: Within 24 hours
Subjective/Interval History
-
Date of Service: December 14, 2024
Patient seen and examined. Complaining of poor sleep.
Objective Data
-
Labs:
Laboratory Results
12/14/24
05:36
WBC 6.4
Hgb 8.0 L
Hct 22.9 L
Plt Count Pending
Sodium 139
Potassium 3.7
Chloride 111 H
Carbon Dioxide 20 L
BUN 18 H
Creatinine 1.3 H
Glucose 88
Calcium 8.3 L
Vital Signs:
Vital Signs
Temp Pulse Resp BP Pulse Ox
98.2 F 75 17 126/55 95
12/14/24 07:47 12/14/24 07:47 12/14/24 07:47 12/14/24 07:47 12/14/24 07:47
I&O
12/13/24 12/14/24 12/15/24
06:59 06:59 06:59
Intake Total 1460 / 1460 2400 / 2400 1520 / 1520
Balance 1460 / 1460 2400 / 2400 1520 / 1520
Review of Systems
-
History Source: Patient
All other systems: Reviewed and negative
[2024-12-14] MEDS: WELLBUTRIN XL (24 hour extended release) 300 MG PO (08:17)
[2024-12-14] MEDS: OMNICEF 300 MG PO (08:18)
[2024-12-14 08:34] LABS: Mean Platelet Volume 11.5 fL (7.4-10.4); Platelet Count 149 10^3/uL (130-400)
--- NOTE | 2024-12-14 10:35 | CM ---
Addendum entered by Camille Cowart RN 12/14/24 12:42:
Spoke with Juana nagi who is out of town. She agrees with dc and IMM.
Requested [facility] for OT only . [facility] liaison aware of referral.
Sang metz will drive her home.
PLAN Home with [facility]
Original Note:
Continues with on going tests.
Colonoscopy today.
Pt lives with dgt SAFETY SITTER independent.
PLAN Home with no anticipated needs
--- NOTE | 2024-12-14 11:57 | W.DS.TRANS ---
DC Summary - County Judge
-
Discharge Instructions:
Discharge Diagnosis/Procedures Diverticular bleeding, anemia, renal
insufficiency
Diet Regular
Activity As tolerated
Driving Restrictions No driving
Bathing Restrictions None
Blood Work CBC, BMP next week with Dr. Kirby
Instructions:
Stand-Alone Forms:
Changes to Home Medications: No
Discharge Medications:
DC Medications w/original date entered in [facility]
metoprolol succinate 25 mg tablet,extended release 24 hr 25 mg PO HS Blood Pressure 06/20/23
bupropion HCl 300 mg 24 hr tablet, extended release 300 mg PO DAILY Depression 08/09/23
omeprazole 40 mg capsule,delayed release 40 mg PO DAILY Gastrointestinal Issue 08/09/23
prednisolone acetate 1 % eye drops,suspension 1 drp BOTH EYES DAILY 12/08/24
tramadol 50 mg tablet 50 mg PO DAILYPRN PRN moderate pain 12/08/24
trazodone 50 mg tablet 150 mg PO HS 12/08/24
zolpidem 10 mg tablet 10 mg PO HS Sleep 12/08/24
cefdinir 300 mg capsule 300 mg PO DAILY #5 caps 12/10/24
Home Medication Changes
Pending Results: No
[2024-12-14] MEDS: LR IV (13:06)
--- NOTE | 2024-12-14 13:46 | VNURNOTE ---
Home Health Liaison met with patient at bedside to discuss [facility] nurse/therapy, visits, schedule and homebound status. Patient is agreeable and understands that visits at home will be 2-3 x per week to assess and teach medical management. [facility]
brochure provided with contact information. Patient is aware that [facility] will contact them for start of care in 1-2 days after discharge from . Patient agreeable to nursing and PT, OT. This author reached out to daughter Juana at [phone]. No
answer, left message. [facility] referral completed in [facility].
== END 2024-12-14 14:58 | disposition home health service (06) | DRG 378 ==
LOC: 3 WEST ACU 17:01
PROVIDERS: Emergency Medicine; Student in an Organized Health Care Education/Training Program; ADMITTING PHYSICIAN Hospitalist; CONSULT PHYSICIAN Internal Medicine Gastroenterology; EMERGENCY PHYSICIAN Emergency Medicine; FAMILY PHYSICIAN Family Medicine
PROC: 30233N1 Transfusion of Nonautologous Red Blood Cells into Peripheral Vein, Percutaneous Approach (ICD-10-PCS; 2024-12-12)
PROC: 0DJD8ZZ Inspection of Lower Intestinal Tract, Via Natural or Artificial Opening Endoscopic (ICD-10-PCS; 2024-12-14)
DX: K57.31 Diverticulosis of large intestine without perforation or abscess with bleeding (principal); D62 Acute posthemorrhagic anemia; F05 Delirium due to known physiological condition; N17.9 Acute kidney failure, unspecified; Z66 Do not resuscitate; E78.00 Pure hypercholesterolemia, unspecified; F32.A Depression, unspecified; E66.09 Other obesity due to excess calories; G43.909 Migraine, unspecified, not intractable, without status migrainosus; G47.33 Obstructive sleep apnea (adult) (pediatric); I12.9 Hypertensive chronic kidney disease with stage 1 through stage 4 chronic kidney disease, or unspecified chronic kidney disease; N18.32 Chronic kidney disease, stage 3b; D63.1 Anemia in chronic kidney disease; K21.9 Gastro-esophageal reflux disease without esophagitis; K62.89 Other specified diseases of anus and rectum; Z87.440 Personal history of urinary (tract) infections; Z79.899 Other long term (current) drug therapy; Z98.84 Bariatric surgery status; Z96.611 Presence of right artificial shoulder joint; Z95.2 Presence of prosthetic heart valve; Z92.3 Personal history of irradiation; Z92.21 Personal history of antineoplastic chemotherapy; Z85.3 Personal history of malignant neoplasm of breast; Z68.34 Body mass index [BMI] 34.0-34.9, adult
CPT/HCPCS: 36430; 74176; 76770; 80048; 80053; 82248; 82977; 85014; 85018; 85025; 85610; 85730; 86850; 86900; 86901; 86920; 93005; 99285; P9016

== ENCOUNTER → 2024-12-19 07:34 | Outpatient (REF) | payer MEDICARE, OTHER, SELFPAY ==
[2024-12-19 09:41] LABS: % Basophils 0.6 % (0-2); % Eosinophils 4.4 % (0-6); % Immature Granulocytes 0.4 % (0-0.5); % Lymphocytes 12.6 % (20.5-51.1); Absolute Eosinophils 0.3 10^3/uL (0-0.7); Absolute Lymphocytes 0.9 10^3/uL (1.2-3.4); Absolute Monocytes 0.6 10^3/uL (0.1-0.6); Absolute Neutrophils 5.2 10^3/uL (1.4-6.5); Hematocrit 25.6 % (37.0-47.0); Hemoglobin 8.4 g/dL (12.0-16.0); Mean Corp Hgb Conc. 32.8 g/dL (33.0-37.0); Mean Corpuscular Hgb 30.9 pg (27.0-31.0); Mean Corpuscular Volume 94.1 fL (81.0-99.0); Mean Platelet Volume 9.8 fL (7.4-10.4); Nucleated Red Blood Cells % 0 %; Platelet Count 207 10^3/uL (130-400); Red Blood Cell Count 2.72 10^6/uL (4.20-5.40); Red Cell Dist. Width 12.6 % (11.5-14.5)
[2024-12-19 10:01] LABS: Blood Urea Nitrogen 21 mg/dl (7-17); Calcium 8.2 mg/dl (8.4-10.2); Carbon Dioxide 28 mmol/L (22-30); Chloride 103 mmol/L (98-107); Glucose 83 mg/dl (70-99); Potassium 4.4 mmol/L (3.5-5.1); Sodium 140 mmol/L (135-145); eGFR 40.55
== END ==
LOC: WDC 07:34
PROVIDERS: Nurse Practitioner Family; ATTENDING PHYSICIAN Internal Medicine Hematology & Oncology; FAMILY PHYSICIAN Family Medicine
DX: C50.411 Malignant neoplasm of upper-outer quadrant of right female breast (principal); Z12.31 Encounter for screening mammogram for malignant neoplasm of breast
CPT/HCPCS: 36415; 77063; 77067; 80048; 85025

== ENCOUNTER → 2024-12-20 09:19 | Outpatient (REF) | payer MEDICARE, OTHER, SELFPAY ==
[2024-12-20 10:04] LABS: % Basophils 0.6 % (0-2); % Eosinophils 4.1 % (0-6); % Immature Granulocytes 0.3 % (0-0.5); % Lymphocytes 15.1 % (20.5-51.1); % Monocytes 8.1 % (1.7-9.3); % Neutrophils 71.8 % (42.2-75.2); Absolute Eosinophils 0.3 10^3/uL (0-0.7); Absolute Monocytes 0.5 10^3/uL (0.1-0.6); Absolute Neutrophils 4.5 10^3/uL (1.4-6.5); Hematocrit 26.8 % (37.0-47.0); Hemoglobin 8.8 g/dL (12.0-16.0); Mean Corp Hgb Conc. 32.8 g/dL (33.0-37.0); Mean Corpuscular Hgb 31.2 pg (27.0-31.0); Mean Platelet Volume 10.3 fL (7.4-10.4); Nucleated Red Blood Cells % 0 %; Platelet Count 232 10^3/uL (130-400); Red Blood Cell Count 2.82 10^6/uL (4.20-5.40); Red Cell Dist. Width 12.7 % (11.5-14.5); White Blood Cell Count 6.3 10^3/uL (4.8-10.8)
== END ==
LOC: REG 09:19
PROVIDERS: ATTENDING PHYSICIAN Family Medicine
DX: I10 Essential (primary) hypertension (principal); Z79.899 Other long term (current) drug therapy
CPT/HCPCS: 36415; 85025

== ENCOUNTER → 2024-12-21 10:24 | Outpatient (REF) | payer MEDICARE, OTHER, SELFPAY ==
[2024-12-21 11:11] LABS: % Basophils 0.5 % (0-2); % Eosinophils 4.2 % (0-6); % Immature Granulocytes 0.5 % (0-0.5); % Monocytes 6.5 % (1.7-9.3); % Neutrophils 76.3 % (42.2-75.2); Absolute Eosinophils 0.3 10^3/uL (0-0.7); Absolute Lymphocytes 0.9 10^3/uL (1.2-3.4); Absolute Monocytes 0.5 10^3/uL (0.1-0.6); Absolute Neutrophils 5.8 10^3/uL (1.4-6.5); Hematocrit 27.1 % (37.0-47.0); Mean Corp Hgb Conc. 33.2 g/dL (33.0-37.0); Mean Corpuscular Hgb 30.7 pg (27.0-31.0); Mean Corpuscular Volume 92.5 fL (81.0-99.0); Mean Platelet Volume 10.6 fL (7.4-10.4); Nucleated Red Blood Cells % 0 %; Platelet Count 244 10^3/uL (130-400); Red Blood Cell Count 2.93 10^6/uL (4.20-5.40); Red Cell Dist. Width 12.6 % (11.5-14.5); White Blood Cell Count 7.6 10^3/uL (4.8-10.8)
[2024-12-21 11:38] LABS: ALT (SGPT) 24 U/L (0-35); AST (SGOT) 45 U/L (14-36); Albumin 4.3 g/dl (3.5-5.0); Alkaline Phosphatase 65 U/L (38-126); Blood Urea Nitrogen 17 mg/dl (7-17); Calcium 8.1 mg/dl (8.4-10.2); Carbon Dioxide 25 mmol/L (22-30); Chloride 106 mmol/L (98-107); Glucose 90 mg/dl (70-99); Potassium 4.9 mmol/L (3.5-5.1); Sodium 140 mmol/L (135-145); Total Bilirubin 1.4 mg/dl (0.2-1.3); Total Protein 6.6 g/dl (6.3-8.2); eGFR 44.64
== END ==
LOC: RAD 10:24
PROVIDERS: ATTENDING PHYSICIAN Family Medicine; REFERRING PHYSICIAN Internal Medicine Hematology & Oncology
DX: D64.9 Anemia, unspecified (principal); N17.9 Acute kidney failure, unspecified; K92.2 Gastrointestinal hemorrhage, unspecified
CPT/HCPCS: 36415; 80053; 85025

== ENCOUNTER → 2024-12-26 13:49 | Outpatient (REF) | payer MEDICARE, OTHER, SELFPAY ==
[2024-12-26 15:04] LABS: % Basophils 0.9 % (0-2); % Eosinophils 4.7 % (0-6); % Immature Granulocytes 0.1 % (0-0.5); % Lymphocytes 19.1 % (20.5-51.1); % Monocytes 7.2 % (1.7-9.3); Absolute Basophils 0.1 10^3/uL (0-0.2); Absolute Eosinophils 0.3 10^3/uL (0-0.7); Absolute Lymphocytes 1.3 10^3/uL (1.2-3.4); Absolute Monocytes 0.5 10^3/uL (0.1-0.6); Absolute Neutrophils 4.6 10^3/uL (1.4-6.5); Hematocrit 30.5 % (37.0-47.0); Hemoglobin 9.8 g/dL (12.0-16.0); Mean Corp Hgb Conc. 32.1 g/dL (33.0-37.0); Mean Corpuscular Hgb 30.7 pg (27.0-31.0); Mean Corpuscular Volume 95.6 fL (81.0-99.0); Nucleated Red Blood Cells % 0 %; Platelet Count 291 10^3/uL (130-400); Red Blood Cell Count 3.19 10^6/uL (4.20-5.40); Red Cell Dist. Width 12.9 % (11.5-14.5); Reticulocyte Count 2.7 % (0.4-2.8); White Blood Cell Count 6.8 10^3/uL (4.8-10.8)
[2024-12-26 15:43] LABS: Blood Urea Nitrogen 25 mg/dl (7-17); Iron 75 ug/dl (37-170)
[2024-12-26 15:52] LABS: Percent Saturation 26 % (20-50); Total Iron Binding Capacity 288 ug/dl (265-497)
[2024-12-26 16:33] LABS: Vitamin B12 507 pg/ml (239-931)
[2024-12-28 22:26] LABS: Erythropoietin (EPO) 12 mU/mL (4-27)
== END ==
LOC: REG 13:49
PROVIDERS: ATTENDING PHYSICIAN Internal Medicine Hematology & Oncology; FAMILY PHYSICIAN Family Medicine
DX: C50.411 Malignant neoplasm of upper-outer quadrant of right female breast (principal); R11.2 Nausea with vomiting, unspecified; Z51.89 Encounter for other specified aftercare; Z98.84 Bariatric surgery status; M81.8 Other osteoporosis without current pathological fracture; D64.9 Anemia, unspecified; R53.82 Chronic fatigue, unspecified; N18.30 Chronic kidney disease, stage 3 unspecified; D50.9 Iron deficiency anemia, unspecified; D59.4 Other nonautoimmune hemolytic anemias; R30.0 Dysuria; N39.0 Urinary tract infection, site not specified; Z79.899 Other long term (current) drug therapy
CPT/HCPCS: 36415; 82565; 82607; 82668; 82728; 83540; 83550; 84520; 85025; 85045

== ENCOUNTER → 2025-01-09 12:56 | Outpatient (REF) | payer MEDICARE, OTHER, SELFPAY ==
[2025-01-09 14:09] LABS: % Basophils 0.7 % (0-2); % Eosinophils 4.1 % (0-6); % Immature Granulocytes 0.2 % (0-0.5); % Monocytes 7.9 % (1.7-9.3); % Neutrophils 65.1 % (42.2-75.2); Absolute Eosinophils 0.2 10^3/uL (0-0.7); Absolute Lymphocytes 1.3 10^3/uL (1.2-3.4); Absolute Monocytes 0.5 10^3/uL (0.1-0.6); Absolute Neutrophils 3.8 10^3/uL (1.4-6.5); Hematocrit 32.1 % (37.0-47.0); Hemoglobin 10.6 g/dL (12.0-16.0); Mean Corpuscular Hgb 30.4 pg (27.0-31.0); Mean Platelet Volume 9.9 fL (7.4-10.4); Nucleated Red Blood Cells % 0 %; Platelet Count 187 10^3/uL (130-400); Red Blood Cell Count 3.49 10^6/uL (4.20-5.40); Red Cell Dist. Width 13.2 % (11.5-14.5); White Blood Cell Count 5.8 10^3/uL (4.8-10.8)
== END ==
LOC: REG 12:56
PROVIDERS: ATTENDING PHYSICIAN Internal Medicine Hematology & Oncology; FAMILY PHYSICIAN Family Medicine
DX: C50.411 Malignant neoplasm of upper-outer quadrant of right female breast (principal); R11.2 Nausea with vomiting, unspecified; Z51.89 Encounter for other specified aftercare; Z98.84 Bariatric surgery status; M81.8 Other osteoporosis without current pathological fracture; D64.9 Anemia, unspecified; R53.82 Chronic fatigue, unspecified; N18.30 Chronic kidney disease, stage 3 unspecified; D50.9 Iron deficiency anemia, unspecified; D59.4 Other nonautoimmune hemolytic anemias; R30.0 Dysuria; N39.0 Urinary tract infection, site not specified
CPT/HCPCS: 36415; 85025; 86850; 86900; 86901

== ENCOUNTER → 2025-01-24 13:50 | Outpatient (REF) | payer MEDICARE, OTHER, SELFPAY ==
[2025-01-24 15:34] LABS: % Basophils 0.7 % (0-2); % Immature Granulocytes 0.4 % (0-0.5); % Lymphocytes 20.7 % (20.5-51.1); % Monocytes 7.1 % (1.7-9.3); % Neutrophils 68.1 % (42.2-75.2); Absolute Eosinophils 0.2 10^3/uL (0-0.7); Absolute Lymphocytes 1.2 10^3/uL (1.2-3.4); Absolute Monocytes 0.4 10^3/uL (0.1-0.6); Absolute Neutrophils 3.9 10^3/uL (1.4-6.5); Hematocrit 28.8 % (37.0-47.0); Hemoglobin 9.1 g/dL (12.0-16.0); Mean Corp Hgb Conc. 31.6 g/dL (33.0-37.0); Mean Corpuscular Hgb 30.8 pg (27.0-31.0); Mean Corpuscular Volume 97.6 fL (81.0-99.0); Mean Platelet Volume 10.7 fL (7.4-10.4); Nucleated Red Blood Cells % 0 %; Platelet Count 186 10^3/uL (130-400); Red Blood Cell Count 2.95 10^6/uL (4.20-5.40); Red Cell Dist. Width 13.6 % (11.5-14.5); White Blood Cell Count 5.7 10^3/uL (4.8-10.8)
== END ==
LOC: REG 13:50
PROVIDERS: ATTENDING PHYSICIAN Internal Medicine Hematology & Oncology; FAMILY PHYSICIAN Family Medicine
DX: C50.411 Malignant neoplasm of upper-outer quadrant of right female breast (principal); R11.2 Nausea with vomiting, unspecified; Z51.89 Encounter for other specified aftercare; Z98.84 Bariatric surgery status; M81.8 Other osteoporosis without current pathological fracture; D64.9 Anemia, unspecified; R53.82 Chronic fatigue, unspecified; N18.30 Chronic kidney disease, stage 3 unspecified; D50.9 Iron deficiency anemia, unspecified; D59.4 Other nonautoimmune hemolytic anemias; R30.0 Dysuria; N39.0 Urinary tract infection, site not specified
CPT/HCPCS: 36415; 85025; 86850; 86900; 86901

== ENCOUNTER → 2025-01-31 11:00 | Outpatient (REF) | payer MEDICARE, OTHER, SELFPAY | LOC: PAVMRI 11:00 | PROVIDERS: ATTENDING PHYSICIAN Physician Assistant; FAMILY PHYSICIAN Family Medicine | DX: K86.2 Cyst of pancreas (principal) | CPT/HCPCS: 74183; A9575 ==

== ENCOUNTER → 2025-02-01 11:07 | Outpatient (REF) | payer MEDICARE, OTHER, SELFPAY ==
[2025-02-01 11:12] LABS: % Basophils 0.4 % (0-2); % Eosinophils 3.4 % (0-6); % Lymphocytes 14.2 % (20.5-51.1); % Monocytes 8.2 % (1.7-9.3); % Neutrophils 73.8 % (42.2-75.2); Absolute Eosinophils 0.2 10^3/uL (0-0.7); Absolute Lymphocytes 0.8 10^3/uL (1.2-3.4); Absolute Monocytes 0.4 10^3/uL (0.1-0.6); Hematocrit 30.5 % (37.0-47.0); Hemoglobin 9.9 g/dL (12.0-16.0); Mean Corp Hgb Conc. 32.5 g/dL (33.0-37.0); Mean Corpuscular Hgb 31.1 pg (27.0-31.0); Mean Corpuscular Volume 95.9 fL (81.0-99.0); Mean Platelet Volume 10.6 fL (7.4-10.4); Platelet Count 220 10^3/uL (130-400); Red Blood Cell Count 3.18 10^6/uL (4.20-5.40); Red Cell Dist. Width 13.2 % (11.5-14.5); White Blood Cell Count 5.4 10^3/uL (4.8-10.8)
[2025-02-01 11:52] LABS: Blood Urea Nitrogen 23 mg/dl (7-17); Iron 58 ug/dl (37-170)
[2025-02-01 12:02] LABS: Percent Saturation 21 % (20-50); Total Iron Binding Capacity 275 ug/dl (265-497)
== END ==
LOC: OIDL 11:07
PROVIDERS: ATTENDING PHYSICIAN Internal Medicine Hematology & Oncology
DX: C50.411 Malignant neoplasm of upper-outer quadrant of right female breast (principal); R11.2 Nausea with vomiting, unspecified; Z51.89 Encounter for other specified aftercare; Z98.84 Bariatric surgery status; M81.8 Other osteoporosis without current pathological fracture; D64.9 Anemia, unspecified; R53.82 Chronic fatigue, unspecified; N18.30 Chronic kidney disease, stage 3 unspecified; D50.9 Iron deficiency anemia, unspecified; D59.4 Other nonautoimmune hemolytic anemias; R30.0 Dysuria; N39.0 Urinary tract infection, site not specified; D63.1 Anemia in chronic kidney disease
CPT/HCPCS: 82565; 82728; 83540; 83550; 84520; 85025

== ENCOUNTER → 2025-02-13 13:30 | Outpatient (REF) | payer MEDICARE, OTHER, SELFPAY ==
[2025-02-13 14:47] LABS: % Basophils 0.5 % (0-2); % Immature Granulocytes 0.4 % (0-0.5); % Monocytes 9.6 % (1.7-9.3); % Neutrophils 76.5 % (42.2-75.2); Absolute Eosinophils 0.2 10^3/uL (0-0.7); Absolute Lymphocytes 0.9 10^3/uL (1.2-3.4); Absolute Monocytes 0.8 10^3/uL (0.1-0.6); Absolute Neutrophils 6.2 10^3/uL (1.4-6.5); Hematocrit 27.6 % (37.0-47.0); Hemoglobin 9.5 g/dL (12.0-16.0); Mean Corp Hgb Conc. 34.4 g/dL (33.0-37.0); Mean Corpuscular Hgb 31.5 pg (27.0-31.0); Mean Corpuscular Volume 91.4 fL (81.0-99.0); Nucleated Red Blood Cells % 0 %; Platelet Count 271 10^3/uL (130-400); Red Blood Cell Count 3.02 10^6/uL (4.20-5.40); Red Cell Dist. Width 13.3 % (11.5-14.5); White Blood Cell Count 8.1 10^3/uL (4.8-10.8)
== END ==
LOC: REG 13:30
PROVIDERS: ATTENDING PHYSICIAN Internal Medicine Hematology & Oncology; FAMILY PHYSICIAN Family Medicine
DX: C50.411 Malignant neoplasm of upper-outer quadrant of right female breast (principal); R11.2 Nausea with vomiting, unspecified; Z51.89 Encounter for other specified aftercare; Z98.84 Bariatric surgery status; M81.8 Other osteoporosis without current pathological fracture; D64.9 Anemia, unspecified; R53.82 Chronic fatigue, unspecified; N18.30 Chronic kidney disease, stage 3 unspecified; D50.9 Iron deficiency anemia, unspecified; D59.4 Other nonautoimmune hemolytic anemias; R30.0 Dysuria; N39.0 Urinary tract infection, site not specified
CPT/HCPCS: 36415; 85025; 86850; 86900; 86901

== ENCOUNTER → 2025-02-27 16:17 | Outpatient (REF) | payer MEDICARE, OTHER, SELFPAY ==
[2025-02-27 17:02] LABS: ALT (SGPT) 20 U/L (0-35); AST (SGOT) 44 U/L (14-36); Albumin 3.9 g/dl (3.5-5.0); Alkaline Phosphatase 92 U/L (38-126); Blood Urea Nitrogen 24 mg/dl (7-17); Calcium 9.4 mg/dl (8.4-10.2); Carbon Dioxide 23 mmol/L (22-30); Chloride 96 mmol/L (98-107); Glucose 107 mg/dl (70-99); Magnesium 1.6 mg/dl (1.6-2.3); Potassium 4.8 mmol/L (3.5-5.1); Sodium 127 mmol/L (135-145); Total Bilirubin 1.2 mg/dl (0.2-1.3); Total Protein 6.5 g/dl (6.3-8.2); eGFR 55.55
[2025-02-27 17:03] LABS: % Basophils 0.4 % (0-2); % Eosinophils 2.3 % (0-6); % Immature Granulocytes 0.3 % (0-0.5); % Lymphocytes 14.2 % (20.5-51.1); % Monocytes 6.5 % (1.7-9.3); % Neutrophils 76.3 % (42.2-75.2); Absolute Eosinophils 0.2 10^3/uL (0-0.7); Absolute Monocytes 0.5 10^3/uL (0.1-0.6); Absolute Neutrophils 5.3 10^3/uL (1.4-6.5); Hematocrit 30.5 % (37.0-47.0); Hemoglobin 10.3 g/dL (12.0-16.0); Mean Corp Hgb Conc. 33.8 g/dL (33.0-37.0); Mean Corpuscular Hgb 30.5 pg (27.0-31.0); Mean Corpuscular Volume 90.2 fL (81.0-99.0); Nucleated Red Blood Cells % 0 %; Platelet Count 278 10^3/uL (130-400); Red Blood Cell Count 3.38 10^6/uL (4.20-5.40); Red Cell Dist. Width 12.9 % (11.5-14.5); White Blood Cell Count 6.9 10^3/uL (4.8-10.8)
== END ==
LOC: REG 16:17
PROVIDERS: ATTENDING PHYSICIAN Internal Medicine Hematology & Oncology; FAMILY PHYSICIAN Family Medicine
DX: R25.2 Cramp and spasm (principal); I10 Essential (primary) hypertension; G43.011 Migraine without aura, intractable, with status migrainosus; D50.0 Iron deficiency anemia secondary to blood loss (chronic); Z98.84 Bariatric surgery status; R79.9 Abnormal finding of blood chemistry, unspecified; C50.411 Malignant neoplasm of upper-outer quadrant of right female breast; R11.2 Nausea with vomiting, unspecified; Z51.89 Encounter for other specified aftercare; M81.8 Other osteoporosis without current pathological fracture; D64.9 Anemia, unspecified; R53.82 Chronic fatigue, unspecified; N18.30 Chronic kidney disease, stage 3 unspecified; D50.9 Iron deficiency anemia, unspecified; D59.4 Other nonautoimmune hemolytic anemias; R30.0 Dysuria; N39.0 Urinary tract infection, site not specified
CPT/HCPCS: 36415; 80053; 83735; 85025; 86850; 86900; 86901

== ENCOUNTER → 2025-03-13 16:24 | Outpatient (REF) | payer MEDICARE, OTHER, SELFPAY ==
[2025-03-13 17:04] LABS: % Basophils 0.4 % (0-2); % Eosinophils 3.4 % (0-6); % Immature Granulocytes 0.3 % (0-0.5); % Monocytes 7.2 % (1.7-9.3); % Neutrophils 74.7 % (42.2-75.2); Absolute Eosinophils 0.3 10^3/uL (0-0.7); Absolute Monocytes 0.5 10^3/uL (0.1-0.6); Absolute Neutrophils 5.5 10^3/uL (1.4-6.5); Hematocrit 30.6 % (37.0-47.0); Hemoglobin 10.5 g/dL (12.0-16.0); Mean Corp Hgb Conc. 34.3 g/dL (33.0-37.0); Mean Corpuscular Hgb 30.8 pg (27.0-31.0); Mean Corpuscular Volume 89.7 fL (81.0-99.0); Mean Platelet Volume 9.8 fL (7.4-10.4); Nucleated Red Blood Cells % 0 %; Platelet Count 256 10^3/uL (130-400); Red Blood Cell Count 3.41 10^6/uL (4.20-5.40); Red Cell Dist. Width 13.3 % (11.5-14.5); White Blood Cell Count 7.4 10^3/uL (4.8-10.8)
== END ==
LOC: REG 16:24
PROVIDERS: ATTENDING PHYSICIAN Internal Medicine Hematology & Oncology; FAMILY PHYSICIAN Family Medicine
DX: C50.411 Malignant neoplasm of upper-outer quadrant of right female breast (principal); R11.2 Nausea with vomiting, unspecified; Z51.89 Encounter for other specified aftercare; Z98.84 Bariatric surgery status; M81.8 Other osteoporosis without current pathological fracture; D64.9 Anemia, unspecified; R53.82 Chronic fatigue, unspecified; N18.30 Chronic kidney disease, stage 3 unspecified; D50.9 Iron deficiency anemia, unspecified; D59.4 Other nonautoimmune hemolytic anemias; R30.0 Dysuria; N39.0 Urinary tract infection, site not specified
CPT/HCPCS: 36415; 85025

== ENCOUNTER → 2025-03-14 09:50 | Outpatient (REF) | payer MEDICARE, OTHER, SELFPAY ==
[2025-03-14 11:22] LABS: Urine Albumin 3+ (Neg - Trace); Urine Bilirubin Negative (Negative); Urine Character Slightly Cloudy (Clear); Urine Color Yellow; Urine Glucose Negative (Negative); Urine Ketone Negative (Negative); Urine Leukocyte 3+ (Negative); Urine Nitrite Negative (Negative); Urine Occult Blood 4+ (Negative); Urine Specific Gravity 1.015 (<1.030); Urine Urobilinogen Negative (Neg - 1+)
[2025-03-14 11:48] LABS: Urine Squamous Cell 16-20 /LPF (Few)
[2025-03-14 11:49] LABS: Urine Amorphous Seen
[2025-03-14 11:50] LABS: Urine Granular Cast 0-2 /LPF (0)
[2025-03-14 11:52] LABS: Urine White Cell 50-60 /HPF (0-5)
[2025-03-14 11:53] LABS: Urine Bacteria Moderate (Negative); Urine Red Blood Cell 16-20 /HPF (0-2)
== END ==
LOC: CLAB 09:50
PROVIDERS: ATTENDING PHYSICIAN Family Medicine
DX: N39.0 Urinary tract infection, site not specified (principal)
CPT/HCPCS: 81003; 81015; 87077; 87086

== ENCOUNTER 2025-03-25 15:32 | Inpatient (IN) | payer MEDICARE, OTHER, SELFPAY ==
[2025-03-25] VITALS (11 sets, daily range): BP systolic 90–190; BP diastolic 35–79; BMI 30.4
--- NOTE | 2025-03-25 09:10 | ED.GENMED ---
History of Present Illness
General
Chief Complaint: Fainting/Passed Out
Time Seen by Provider: 03/25/25 08:31
History of Present Illness
History of Present Illness:
Patient is a 84-year-old woman with history of migraines, hypertension, hyperlipidemia, urinary retention with current Hollins catheter placed presenting to the emergency department for syncope. Patient states that she was at the eye doctors getting
ready for procedure when they put lidocaine jelly and put proparacaine drops in her left eye. She has had this procedure done many times before. She states that she was sitting in the chair when she passed out. She did not feel lightheadedness
dizziness vision changes chest pain or palpitations. She does state that she has had a cold for the past few days and did have a headache right before passing out however the headache has since resolved. No neck pain. Notes neck stiffness. No
numbness tingling. No weakness. Daughter at bedside states that patient did have a fracture of her shoulder many weeks ago and she has not been taking any additional opioid medications. No changes in her medications. She does seem more tired
since she is passed out. She was in her usual state of health yesterday as well as this morning. She does state that she has a mild headache though does have history of migraines. She does have some photophobia but no phonophobia. This is not
severe as her typical migraines. She does note that she has been having some sinus pain.
Past History
Past History
ED Past Medical History: GERD, HTN, Hypercholesterolemia, Psychiatric (Depression) and Other (UTI)
ED Past Surgical History: Cholecystectomy, Gynecological, Orthopedic (carpal tunnel right hand, right shoulder replacement and R wrist hardware) and Other (gastric bypass)
Social History
Tobacco: Non-smoker
Drug: None
Personal:
Living: with family
Employment: Retired
Family History
Family History: Other
Phy Exam
Physical Exam
Physical Exam:
GENERAL: in no acute distress, eyes closed
HEENT: normocephalic, extraocular movements intact, pupils equal and reactive bilaterally, normal conjunctiva moist oral mucosa
NECK: normal inspection, full range of motion
RESPIRATORY: no respiratory distress, clear to auscultation bilaterally
CARDIOVASCULAR: regular rate and rhythm
ABDOMEN/: soft, non-distended, non-tender to palpation, no rebound or guarding
EXTREMITIES: non-tender, no edema/swelling
NEUROLOGIC: awake and alert, moves all extremities
SKIN: warm
Course
Orders/Labs/Results
Orders:
Orders
03/25/25 09:09
CT Head W/o Iv Contrast Urgent
Comment:
Reason For Exam: headache, syncope
Urinalysis Reflex To Culture Urgent
0.9% Sodium Chloride 1000 ml [Nss] 1,000 ml IV BOLUS
Acetaminophen [Tylenol] 650 mg PO NOW STA
CR Chest - 2 Views Urgent
Comment:
Reason For Exam: cough
03/25/25 09:13
Electrocardiogram (*1) Urgent
Reason for Study: Syncope
EKG- Treatment ONCE
03/25/25 09:26
COVID-19 Antigen Urgent
Source: Nasal Swab
Influenza A+B Rapid Molecular Urgent
ANETTE Source: Nasal Swab
Specimen Description:
03/25/25 09:43
Basic Metabolic Panel Urgent
Complete Blood Count/With Diff Urgent
Abnormal Lab Results
03/25/25
09:43
RBC 3.46 L 10^6/uL
(4.20-5.40)
Hgb 10.7 L g/dL
(12.0-16.0)
Hct 30.8 L %
(37.0-47.0)
Absolute Lymphs (auto) 0.8 L 10^3/uL
(1.2-3.4)
Absolute Monos (auto) 0.7 H 10^3/uL
(0.1-0.6)
Neutrophils % 78.6 H %
(42.2-75.2)
Lymphocytes % 9.6 L %
(20.5-51.1)
Sodium 131 L mmol/L
(135-145)
Chloride 96 L mmol/L
(98-107)
BUN 19 H mg/dl
(7-17)
03/25/25 09:43
03/25/25 09:43
Vital Signs
Initial and Last Documented VS:
Initial Vital Signs
Temp Pulse Resp BP Pulse Ox
97.6 F 69 18 93/35 97
03/25/25 08:26 03/25/25 08:26 03/25/25 08:26 03/25/25 08:26 03/25/25 08:26
Last Documented Vital Signs
Temp Pulse Resp BP Pulse Ox
97.6 F 69 18 93/35 97
03/25/25 08:26 03/25/25 08:26 03/25/25 08:26 03/25/25 08:26 03/25/25 08:26
MDM/Problems Addressed
Differential Diagnosis Includes:
Patient is a 84-year-old woman with history of migraines, hypertension, hyperlipidemia presenting to the emergency department after syncopal event. On arrival blood pressure was noted to be 93/55. Exam does show a woman who was sleeping with the
lights off though did not have any neurodeficits. Differential is broad but consists of dysrhythmia versus viral illness versus vasovagal reaction. Given the headache could be intracranial hemorrhage though less likely as patient is not having
much symptoms currently. She is within 4 hours though so we will proceed with CT scan of the head. Also check blood work EKG respiratory swabs and chest x-ray.
*Critical Care Note
Total Time (30-74mins, 75-104mins- exclusive of procedures): Not Applicable
Update Note
Update Note:
CT scan of the head unremarkable. Chest x-ray per my interpretation with retrocardiac opacity. Will treat with antibiotics. Blood pressure did improve with fluids. Given unclear cause of syncope patient will need admission for additional
monitoring. Discussed with hospitalist accepted patient to their service
ED Attending Note
-
Portions of this chart may have been created with voice recognition software.� Occasional wrong word or��sound alike� substitutions may have occurred due to the inherent limitations of voice recognition software.
Discharge Plan
Departure
Patient Disposition: Admit
Date of Disposition: 03/25/25
Time of Disposition: 10:51
Presentation/result/management discussed w/ accepting MD/DO: Hospitalist
Discharge Problem:
Syncope
Prescriptions:
No Action
metoprolol succinate 25 mg Tablet Extended Release 24 Hr
25 mg PO HS
omeprazole 40 mg Capsule,Delayed Release(Dr/Ec)
40 mg PO DAILY
bupropion HCl 300 mg Tablet Extended Release 24 Hr
300 mg PO DAILY
trazodone 50 mg Tablet
150 mg PO HS
tramadol 50 mg Tablet
50 mg PO DAILYPRN PRN (Reason: moderate pain)
prednisolone acetate 1 % Drops,Suspension
1 drp BOTH EYES DAILY
zolpidem 10 MG tablet
10 mg PO HS
Patient Comments:
12/08/24: last filled 11/16/24, 30 tabs for 30 days from [facility]
cefdinir 300 mg capsule
300 mg PO DAILY Qty: 5 0RF
Referrals:
Melquiades Kirby MD [Family Provider] -
Interventions
Interventions:
*Risk Screen - Suicide Last Done: 03/25/25 08:26
*Neglect/Abuse Screening Last Done: 03/25/25 08:26
Discharge Date and Time
Print Language: FILIPINO
[2025-03-25 09:51] LABS: COVID-19 Antigen Negative (Negative)
[2025-03-25 09:52] LABS: % Basophils 0.4 % (0-2); % Eosinophils 2.2 % (0-6); % Immature Granulocytes 0.5 % (0-0.5); % Lymphocytes 9.6 % (20.5-51.1); % Monocytes 8.7 % (1.7-9.3); % Neutrophils 78.6 % (42.2-75.2); Absolute Eosinophils 0.2 10^3/uL (0-0.7); Absolute Lymphocytes 0.8 10^3/uL (1.2-3.4); Absolute Monocytes 0.7 10^3/uL (0.1-0.6); Absolute Neutrophils 6.2 10^3/uL (1.4-6.5); Hematocrit 30.8 % (37.0-47.0); Hemoglobin 10.7 g/dL (12.0-16.0); Mean Corp Hgb Conc. 34.7 g/dL (33.0-37.0); Mean Corpuscular Hgb 30.9 pg (27.0-31.0); Mean Platelet Volume 9.4 fL (7.4-10.4); Nucleated Red Blood Cells % 0 %; Platelet Count 172 10^3/uL (130-400); Red Blood Cell Count 3.46 10^6/uL (4.20-5.40); Red Cell Dist. Width 13.2 % (11.5-14.5); White Blood Cell Count 7.8 10^3/uL (4.8-10.8)
[2025-03-25 10:05] LABS: Blood Urea Nitrogen 19 mg/dl (7-17); Calcium 8.8 mg/dl (8.4-10.2); Carbon Dioxide 27 mmol/L (22-30); Chloride 96 mmol/L (98-107); Glucose 96 mg/dl (70-99); Potassium 4.7 mmol/L (3.5-5.1); Sodium 131 mmol/L (135-145); eGFR > 60.00
[2025-03-25] MEDS: NSS 1000 IV (10:27)
[2025-03-25] MEDS: TYLENOL 650 MG PO ×2 (10:28→21:16)
[2025-03-25] MEDS: ROCEPHIN 1000 MG IV (11:54)
[2025-03-25] MEDS: ZITHROMAX INFUSION 250 IV (11:54)
[2025-03-25 14:07] LABS: Urine Albumin 2+ (Neg - Trace); Urine Bilirubin Negative (Negative); Urine Character Slightly Cloudy (Clear); Urine Color Yellow; Urine Glucose Negative (Negative); Urine Ketone Negative (Negative); Urine Leukocyte 3+ (Negative); Urine Nitrite Positive (Negative); Urine Occult Blood 4+ (Negative); Urine Urobilinogen 1+ (Neg - 1+)
[2025-03-25 14:19] LABS: Urine Bacteria Moderate (Negative); Urine Squamous Cell 0-2 /LPF (Few)
[2025-03-25 14:20] LABS: Urine Red Blood Cell 26-30 /HPF (0-2); Urine White Cell 26-30 /HPF (0-5)
--- NOTE | 2025-03-25 14:21 | CON.HOSP ---
Addendum entered and electronically signed by Alin Carcamo MD 03/25/25 15:26:
Case discussed with Dr. Bowles. Echo with mod-severe AI. Dr. Bowles would like pt admitted for ARSEN tomorrow. Add on LDH, haptoglobin, LFTs with indirect bili.
This document will now serve as the history and physical.
Original Note:
Consultation
-
Requesting Provider: Dr. Artemio Escalante
Performing Provider: Dr. Alin Carcamo
Reason for Consultation: syncope
Family Physician
-
Family Physician: Melquiades Kirby
Chief Complaint
-
Syncope
History of Present Illness
84 y/o F with PMHx:
Essential HTN
GERD
Hyponatremia
h/o pancreatic head lesion (stable on serial imaging)
h/o R breast CA
Chronic insomnia
Obesity due to excess calories
who presents after having a syncopal episode. The patient was at ophthalmology and was having eyedrops administered when she had a syncopal episode. She had no prodromal symptoms and specifically denied chest pain, palpitations, shortness of
breath, or lightheadedness. Recently she has had a cold with symptoms consisting of productive cough. No other acute complaints.
Medical History
Past Medical History
Past Medical History: Reports Other (as per HPI)
Past Surgical History: Reports Other (N/A)
Social History
Tobacco: Non-smoker
Alcohol: None
Drug: None
Family History
Family History: Reviewed & Not Pertinent
Allergies / Home Medications
Allergies reflects when Allergies were last updated in [facility].
Home Medications with original date entered in [facility]
Allergy/Medication List:
Allergies
Allergy/AdvReac Type Severity Reaction Status Date / Time
No Known Allergies Allergy Verified 03/25/25 08:29
Home Medications
bupropion HCl 300 mg 24 hr tablet, extended release 300 mg PO DAILY Depression 08/09/23
tramadol 50 mg tablet 50 mg PO DAILYPRN PRN moderate pain 12/08/24
trazodone 50 mg tablet 150 mg PO HS 12/08/24
zolpidem 10 mg tablet 10 mg PO HS Sleep 12/08/24
Aranesp(Albumin Free) 200mcg 0.5 ml SC Q2W 03/25/25
cranberry extract 200 mg capsule (Ellura) 200 mg PO DAILY 03/25/25
famotidine 40 mg tablet (Pepcid) 40 mg PO DAILY 03/25/25
hydrochlorothiazide 12.5 mg tablet 12.5 mg PO DAILY 03/25/25
losartan 50 mg tablet 50 mg PO QPM 03/25/25
naproxen sodium 220 mg tablet (Aleve) 220 mg PO [id number] PRN shoulder pain 03/25/25
peg 400-propylene glycol (PF) 0.4 %-0.3 % eye drops in a dropperette (Systane (PF)) 1 drp BOTH EYES TIDPRN PRN dryness 03/25/25
Review of Systems
-
History Source: Patient
A 12 point Review of Systems was completed except as noted: Yes
Physical Exam
Vital Signs
Vital Signs
Temp Pulse Resp BP Pulse Ox
97.6 F 71 15 179/79 99
03/25/25 08:26 03/25/25 13:15 03/25/25 12:45 03/25/25 13:00 03/25/25 13:15
Physical Exam
General: Other (.)
Laboratory Results
-
Laboratory Results
03/25/25 09:43
03/25/25 09:43
Impression / Plan
-
Gen: NAD, AAOx3.
Eyes: EOMI, PERRLA, no scleral icterus.
Neck: supple.
CV: RRR, +S1/S2, no m/r/g.
Resp: CTAB, no rales, wheezes, or rhonchi.
Abd: +BS, soft, NT, ND
Skin: No rashes.
Neuro: CN 2-12 intact, non-focal.
Psych: Normal mood and affect.
ECG (read by me): NSR @ 75, nl axis/intervals, no acute ST/TW changes
CXR (read by me): No evidence of active cardiopulmonary disease. Fracture through the left proximal humeral neck, which is likely subacute fracture.
CT head: No evidence of acute intracranial abnormality.
Syncope:
-History is consistent with vasovagal syncope induced by eye drops
-s/p 1L NS in ER
-ECG normal
-VSS, check orthostatic VS
-lab unremarkable with respect to a cause for syncope
-echo completed, read pending
-recommend cardiology consultation
Hyponatremia:
-stop home HCTZ and substitute with alternative antihypertensive
Essential HTN:
-cont Losartan
-stop home HCTZ and substitute with alternative antihypertensive
Other problems:
GERD: cont home Pepcid
h/o pancreatic head lesion (stable on serial imaging)
h/o R breast CA
Chronic insomnia, Ambien dependent
Obesity due to excess calories
Patient's daughter updated extensively at bedside.
My findings, evaluation, and recommendations were discussed with Dr. Ulloa. No indication for hospitalization at this juncture.
Thank you for the courtesy of this consultation.
--- NOTE | 2025-03-25 14:26 | CON.CAR ---
Addendum entered and electronically signed by Trino Bowles MD 03/25/25 16:07:
Attending addendum: Patient seen and examined. PA note reviewed and findings independently confirmed by me. Briefly, this is a 84 y/o female s/p Noguera 20 mm TAVR 08/18/23. The left coronary heights were low and coronary protection was utilized
during the TAVR procedure. Her preprocedure coronary angiogram with no CADz. She now presents for evaluation after a syncopal episode while in her hot stick man office today where she receives injections for macular degeneration. She had just
received proparacaine and lidocaine. The technologists turned around and the patient was slumped over but arousable. No chest pain. No prior history of syncope or near syncope.
-07/26/2025: Echo: LV: Normal size and function. EF 60-65%. RV: Normal, LA: Dilated, RA: Normal, MV: Mild mitral stenosis with mean gradient of 5. Mitral valve area by pressure half-time is estimated 2.8 cm�. There is moderate mitral
regurgitation. AV: A 20 mm Noguera Jacky valve is in the aortic position with a mean aortic valve gradient of 19 mmHg. Moderate to severe aortic insufficiency is now present with a aortic valve pressure half-time of 232 ms. TV: Normal with
estimated PAP of 25-30 mmHg. When compared to the prior study moderate-severe aortic insufficiency is now noted. On the prior study aortic insufficiency was only mild.
- 06/04/2024: Echo: LV: Normal size and function with EF 61%. RV: Normal, LA: Mildly dilated, RA: Normal, MV: Mean gradient 4 mmHg with mild-moderate MR, AV: A 20 mm Noguera JACKY valve was in the aortic position with a mean gradient of 22 mmHg.
Mild aortic insufficiency is present. TV: Mild TR with estimated PAP 39 mmHg.
GEN: AAO x 3. No acute distress
HEENT: NC/AT, sclera are anicteric
LUNGS: Clear anteriorly and laterally. No wheezing
CV: Regular rate and rhythm. Normal S1/S2. No S3, No S4. Murmur: Soft diastolic murmur. I-II / murmur USB
ABD : Soft, Bowel sounds are present.
EXT: No CCE
NEURO: No obvious focal neurologic deficit
RECOMMENDATIONS
-Would recommend telemetry monitoring overnight
-Check hemolysis blood work: direct and indirect bili, haptoglobin, LDH
-ARSEN to evaluate etiology of aortic insufficiency. Only mild aortic insufficiency noted previously
Original Note:
Consultation
Consultation Request
Date/Time Consultation Requested: 03/25/25
Date/Time Consultation Performed: 03/25/25
Requesting Provider: Dr. Carcamo
Performing Provider: Dr. Garcia
Reason for Consultation: Syncope
Medical History
-
History of Present Illness:
Patient came to [facility] ER today with syncope and cardiology has been consulted. Patient was at the ophthalmology office today for a regularly scheduled eye treatment when she had syncope and was referred to the ER. Patient has dry eye and gets a laser
type treatment several times a year. Patient has a routine of sitting in the chair at the hot stick man's office that is described as sitting fairly upright, proparacaine eye gtt and lidocaine jelly applied and then the treatment is started.
Patient says that after eye gtt and jelly applied that the chief innovation officer turned around to place meds on the counter and patient felt a sharp pain near the top left of her head and then she had decreased consciousness that was described as being
slumped over in the chair. Patient was awake enough to answer questions, but appeared globally altered. Patient's daughter was brought back to the room and ophthalmology staff recommended that patient be taken to the ER for evaluation. Patient is
more awake now, but patient's daughter thinks that she seemed almost drunk initially and acted as though she had received a whole-body sedative as opposed to numbing jelly/gtt. Patient has never had syncope before and has never had a reaction like
this to the eye procedure prep before. Patient denies any ongoing ZUNIGA. No changes in vision. Patient's daughter reports that patient was diaphoretic after this event, but back to baseline now. No complaints of palpitations, chest pain or SOB. Patient
has had URI symptoms that started a week ago and her daughter had similar URI symptoms prior to that.
PMH:
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
peak/mean 35/19 and moderate to severe aortic regurgitation by echo 03/25/25
HTN
HLD
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
FLETCHER, CPAP intolerant
GERD
History of migraines
ALEX/BSO 1969
R rotator cuff repair 2011
DDD s/p cervical fusion C5-C6 in 1971
Gastric bypass 2007
B/L TKR 2008
Breast reduction 2012
R breast lumpectomy 2013
Insomnia
Past Medical History
Past Medical History: Other (in HPI)
Past Surgical History: Cardiac (TAVR 07/2023), Cholecystectomy, Gynecological (ALEX BSO 1969, right breast lumpectomy), Orthopedic (B/L TKA) and Other (gastric bypass 2007)
Social History
Tobacco: Non-Smoker
Alcohol: None
Drug: None
Personal:
Living: Alone (lives in a cottage on her daughter's property)
Family History
Family History: CAD (PPM, CHF)
Allergies / Home Medications
Allergy/AdvReac Type Severity Reaction Status Date / Time
No Known Allergies Allergy Verified 03/25/25 08:29
�Medication �Instructions �Recorded �Confirmed �Type
bupropion HCl 300 mg 24 hr tablet, 300 mg PO DAILY Depression 08/09/23 03/25/25 History
extended release
tramadol 50 mg tablet 50 mg PO DAILYPRN PRN moderate pain 12/08/24 03/25/25 History
trazodone 50 mg tablet 150 mg PO HS 12/08/24 03/25/25 History
zolpidem 10 mg tablet 10 mg PO HS Sleep 12/08/24 03/25/25 History
Aranesp(Albumin Free) 200mcg 0.5 ml SC Q2W 03/25/25 03/25/25 History
cranberry extract 200 mg capsule 200 mg PO DAILY 03/25/25 03/25/25 History
(Ellura)
famotidine 40 mg tablet (Pepcid) 40 mg PO DAILY 03/25/25 03/25/25 History
hydrochlorothiazide 12.5 mg tablet 12.5 mg PO DAILY 03/25/25 03/25/25 History
losartan 50 mg tablet 50 mg PO QPM 03/25/25 03/25/25 History
naproxen sodium 220 mg tablet 220 mg PO [id number] PRN shoulder pain 03/25/25 03/25/25 History
(Aleve)
peg 400-propylene glycol (PF) 0.4 1 drp BOTH EYES TIDPRN PRN dryness 03/25/25 03/25/25 History
%-0.3 % eye drops in a dropperette
(Systane (PF))
Review of Systems
-
History Source: Patient and Family (daughter helping with HPI)
All other systems: Negative unless noted
Physical Exam
Vital Signs
Temp Pulse Resp BP Pulse Ox
97.6 F 71 15 179/79 99
03/25/25 08:26 03/25/25 13:15 03/25/25 12:45 03/25/25 13:00 03/25/25 13:15
GEN: NAD. AAOx3
HEENT: EOMI, MMM, wearing glasses
LUNGS: RA. CTA B/L without wheeze
CV: SR on tele. Reg, S1/S2, 2/6 diastolic murmur
ABD: soft, BS+, NT, ND
EXT: No clubbing, cyanosis, lesions or edema B/L
NEURO: Gross non-focal
SKIN: No rash
Lab Results
03/25/25 09:43
03/25/25 09:43
Impression / Plan
-
PCP: Dr. Melquiades Kirby
Primary Input Output Clerk: Dr. Bowles
Impression:
Syncope 03/25/25
URI
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
peak/mean 35/19 and moderate to severe aortic regurgitation by echo 03/25/25
HTN
HLD
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
FLETCHER, CPAP intolerant
GERD
History of migraines
ALEX/BSO 1969
R rotator cuff repair 2011
DDD s/p cervical fusion C5-C6 in 1971
Gastric bypass 2007
B/L TKR 2008
Breast reduction 2012
R breast lumpectomy 2013
Insomnia
ECHO 06/06/23: Technically difficult study, EF 60 to 65%, grade 1 diastolic dysfunction, mild MR, mild TR, severe with peak/mean gradient 72/40 mmHg, PAUL 0.9 cm�, mild AR, PAP 31 mmHg
ECHO 08/18/23: Limited echo immediately after TAVR deployment, EF 65 to 70%, 20 mm Noguera transcatheter aortic valve replacement with mean gradient of 8 mmHg, trace AR
Echo 03/25/25: EF 60-65%, mild conc LVH, mild MS with mean gradient 5 mmHg, s/p TAVR with peak/mean 35/19 and moderate to severe aortic regurgitation
Plan:
-Patient came to [facility] ER today with syncope and cardiology has been consulted. Patient was at the ophthalmology office today for a regularly scheduled eye treatment when she had syncope and was referred to the ER. Patient has dry eye and gets a
laser type treatment several times a year. Patient has a routine of sitting in the chair at the hot stick man's office that is described as sitting fairly upright, proparacaine eye gtt and lidocaine jelly applied and then the treatment is started.
Patient says that after eye gtt and jelly applied that the chief innovation officer turned around to place meds on the counter and patient felt a sharp pain near the top left of her head and then she had decreased consciousness that was described as being
slumped over in the chair. Patient was awake enough to answer questions, but appeared globally altered. Patient's daughter was brought back to the room and ophthalmology staff recommended that patient be taken to the ER for evaluation. Patient is
more awake now, but patient's daughter thinks that she seemed almost drunk initially and acted as though she had received a whole-body sedative as opposed to numbing jelly/gtt. Patient has never had syncope before and has never had a reaction like
this to the eye procedure prep before. Patient denies any ongoing ZUNIGA. No changes in vision. Patient's daughter reports that patient was diaphoretic after this event, but back to baseline now. No complaints of palpitations, chest pain or SOB. Patient
has had URI symptoms that started a week ago and her daughter had similar URI symptoms prior to that.
-ECG reviewed by me is SR. No arrhythmia on tele reviewed by me
-Orthostatic VS not performed. HTN in the ER following initial normotension, patient took her usual doses of HCTZ 12.5 mg daily and losartan 50 mg daily this AM.
-Labs reviewed by me, Hgb is stable.
-Check magnesium level
-Echo report reviewed and summarized above, patient with preserved EF, but now moderate to severe aortic regurgitation. Will review with attending j2ee architect.
-No evidence of acute HF.
--- NOTE | 2025-03-25 15:00 | CM ---
ED CM reviewed pt with emergency physician
Awaiting determination if plan for admission
Bedside meeting with pt and dtr
Pt [place] in a [place] on dtr's property
1SH with 1 IRENE
Pt it typically indep without any ADs, drives+
Shoulder fx 6 weeks prior
She is current with [facility] and dtr assisting
Pt has a SPC, WW and WC for use as needed
PCP- Melquiades
Rx- [facility]
Discharge Disposition- home with [facility]
[2025-03-25 15:40] LABS: ALT (SGPT) 15 U/L (0-35); AST (SGOT) 45 U/L (14-36); Albumin 3.8 g/dl (3.5-5.0); Alkaline Phosphatase 68 U/L (38-126); Direct Bilirubin 0.4 mg/dl (0.0-0.4); LDH 635 U/L (120-246); Magnesium 1.4 mg/dl (1.6-2.3); Total Bilirubin 1.1 mg/dl (0.2-1.3); Total Protein 6.2 g/dl (6.3-8.2)
--- NOTE | 2025-03-25 20:00 | PTCARENOTE ---
Pt received from ED at 1945 via stretcher. Pt pleasant, AAOx3, VSS, and able to ambulate into room with assistance. Pain complains of mild pain in her Rt shoulder. Tylenol given - see JAN.Pt receptive to room and call bills. pt bed in lowest position
and call bills within reach. Pt educated on importance of call bills usage, pt relays understanding and cooperation. bed alarm placed and plugged in.
[2025-03-25] MEDS: LOVENOX 40 MG SC (21:15)
[2025-03-25] MEDS: AMBIEN 10 MG PO (21:16)
[2025-03-25] MEDS: DESYREL 150 MG PO (21:16)
[2025-03-25] MEDS: COZAAR 50 MG PO (21:18)
[2025-03-26] VITALS (7 sets, daily range): BP systolic 101–198; BP diastolic 50–84
[2025-03-26] MEDS: ROBITUSSIN 100 MG PO ×3 (03:18→20:05)
--- NOTE | 2025-03-26 08:29 | VNURNOTE ---
Chart reviewed. Patient is current with [facility] nursing. Will continue to follow hospital course and DC plans.
--- NOTE | 2025-03-26 08:58 | W.PN.HOSP.TC ---
Addendum entered and electronically signed by Megan Francisco MD 03/26/25 16:24:
Addendum
I discussed with , she does not need further cardiac work up. Aortic regurgitation is not severe. Reticulocyte count is normal.
Blood pressure is uncontrolled, will place her back on her usual dose of losartan, added low-dose as needed hydralazine
End
Original Note:
Today's Communication/Plan
-
f/w cardiology recommendations
Assessment / Plan
Assessment / Plan
Physical Exam
GEN: No distress, awake, Ox3
HEENT: supple, anicteric, mmm
LUNGS: CTA, no wheezes/rales
CV: Reg, S1/S2, 1/6 syst LSB, no gallop
ABD: soft, BS+, NT/ND
EXT: L arm edema
NEURO: Gross non-focal
SKIN: No rash
Syncope:
-History is consistent with vasovagal syncope induced by eye drops
-s/p 1L NS in ER
-ECG normal
-lab unremarkable with respect to a cause for syncope
-echo completed, d/w cardiology
Hyponatremia:
-stop home HCTZ
No confusion
Essential HTN:
-cont Losartan
-stopped home HCTZ
Other problems:
GERD: cont home Pepcid
h/o pancreatic head lesion (stable on serial imaging)
h/o R breast CA
Chronic insomnia, Ambien dependent
Obesity due to excess calories
Total time spent to see the patient, examine the patient, review data and lab result, discuss treatment plan with patient, nursing staff around 55 minutes
Anticipated Discharge: 24 - 48 hours
Subjective/Interval History
-
Date of Service: March 26, 2025
Objective Data
-
Labs:
Laboratory Results
03/26/25
06:00
WBC Pending
Hgb Pending
Hct Pending
Plt Count Pending
Sodium Pending
Potassium Pending
Chloride Pending
Carbon Dioxide Pending
BUN Pending
Creatinine Pending
Glucose Pending
Calcium Pending
Total Bilirubin Pending
AST Pending
ALT Pending
Alkaline Phosphatase Pending
Vital Signs:
Vital Signs
Temp Pulse Resp BP Pulse Ox
97.8 F 69 18 101/59 98
03/26/25 07:10 03/26/25 07:10 03/26/25 07:10 03/26/25 07:10 03/26/25 07:10
I&O
03/25/25 03/26/25 03/27/25
06:59 06:59 06:59
Output Total 1100 / 1100
Balance -1100 / -1100
--- NOTE | 2025-03-26 09:53 | W.PN.CARDCBS ---
Today's Communication / Plan
-
ARSEN with moderate paravalvular AI, EF 60%.
Await Retic count and haptoglobin
LDH mildly elevated
Decrease Cozaar to 25mg daily.
POssible D/C later in the day
Impression / Plan
-
PCP: Dr. Melquiades Kirby
Primary Reading Specialist: Dr. Bowles
Impression:
Syncope 03/25/25
URI
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
peak/mean 35/19 and moderate to severe aortic regurgitation by echo 03/25/25
HTN
HLD
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
FLETCHER, CPAP intolerant
GERD
History of migraines
ALEX/BSO 1969
R rotator cuff repair 2011
DDD s/p cervical fusion C5-C6 in 1971
Gastric bypass 2007
B/L TKR 2008
Breast reduction 2012
R breast lumpectomy 2013
Insomnia
ECHO 06/06/23: Technically difficult study, EF 60 to 65%, grade 1 diastolic dysfunction, mild MR, mild TR, severe with peak/mean gradient 72/40 mmHg, PAUL 0.9 cm�, mild AR, PAP 31 mmHg
ECHO 08/18/23: Limited echo immediately after TAVR deployment, EF 65 to 70%, 20 mm Noguera transcatheter aortic valve replacement with mean gradient of 8 mmHg, trace AR
Echo 03/25/25: EF 60-65%, mild conc LVH, mild MS with mean gradient 5 mmHg, s/p TAVR with peak/mean 35/19 and moderate to severe aortic regurgitation
Plan:
Etiology of syncope remains unclear
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
LDH is modestly elevated. Await haptoglobin. Check retic count.
BP remains very labile. Decrease Cozaar to 25mg daily.
If remains stable later in the day, possible discharge today
Progress Note - Reading Specialist
Subjective
Date of Service: March 26, 2025
feels okay. NO new dizziness.
Objective
Labs:
Labs
Hgb 10.7 g/dL (12.0-16.0) L 03/25/25 09:43
Hct 30.8 % (37.0-47.0) L 03/25/25 09:43
Plt Count 172 10^3/uL (130-400) 03/25/25 09:43
Sodium 131 mmol/L (135-145) L 03/25/25 09:43
Potassium 4.7 mmol/L (3.5-5.1) 03/25/25 09:43
BUN 19 mg/dl (7-17) H 03/25/25 09:43
Creatinine 0.9 mg/dL (0.6-1.0) 03/25/25 09:43
Glucose 96 mg/dl (70-99) 03/25/25 09:43
Vital Signs and I&O:
Vital Signs
Temp Pulse Resp BP Pulse Ox
97.8 F 69 18 101/59 98
03/26/25 07:10 03/26/25 07:10 03/26/25 07:10 03/26/25 07:10 03/26/25 07:10
Vital Signs
Temp Pulse Resp BP Pulse Ox
97.8 F 69 18 101/59 98
03/26/25 07:10 03/26/25 07:10 03/26/25 07:10 03/26/25 07:10 03/26/25 07:10
Intake & Output
03/24/25 03/25/25 03/26/25 03/27/25
06:59 06:59 06:59 06:59
Output Total 1100 / 1100
Balance -1100 / -1100
Physical Exam
Physical Exam
GEN: No distress, awake, Ox3
HEENT: supple, anicteric, mmm
LUNGS: CTA, no wheezes/rales
CV: Reg, S1/S2, 1/6 syst LSB, no gallop
ABD: soft, BS+, NT/ND
EXT: L arm edema
NEURO: Gross non-focal
SKIN: No rash
[2025-03-26] MEDS: PEPCID 20 MG PO (10:22)
[2025-03-26] MEDS: WELLBUTRIN XL (24 hour extended release) 300 MG PO (10:22)
[2025-03-26 11:05] LABS: Hematocrit 29.7 % (37.0-47.0); Hemoglobin 10.3 g/dL (12.0-16.0); Mean Corp Hgb Conc. 34.7 g/dL (33.0-37.0); Mean Corpuscular Hgb 30.5 pg (27.0-31.0); Mean Corpuscular Volume 87.9 fL (81.0-99.0); Mean Platelet Volume 9.5 fL (7.4-10.4); Platelet Count 181 10^3/uL (130-400); Red Blood Cell Count 3.38 10^6/uL (4.20-5.40); Reticulocyte Count 1.4 % (0.4-2.8); White Blood Cell Count 3.8 10^3/uL (4.8-10.8)
[2025-03-26 11:39] LABS: ALT (SGPT) 15 U/L (0-35); AST (SGOT) 44 U/L (14-36); Alkaline Phosphatase 70 U/L (38-126); Blood Urea Nitrogen 14 mg/dl (7-17); Calcium 8.7 mg/dl (8.4-10.2); Carbon Dioxide 23 mmol/L (22-30); Chloride 98 mmol/L (98-107); Estimated Creatinine Clearance 50 ml/min; Glucose 91 mg/dl (70-99); Potassium 4.7 mmol/L (3.5-5.1); Sodium 131 mmol/L (135-145); Total Bilirubin 1.2 mg/dl (0.2-1.3); Total Protein 6.3 g/dl (6.3-8.2); eGFR > 60.00
--- NOTE | 2025-03-26 11:53 | CM ---
CM reviewed chart, patient seen with daughter, confirms plan will be return home with [facility] when medically stable. CM will continue to follow for all discharge planning needs.
Plan; return home with [facility]
[2025-03-26] MEDS: APRESOLINE 5 MG PO (15:10)
[2025-03-26] MEDS: COZAAR 50 MG PO (17:08)
[2025-03-26] MEDS: LOVENOX 40 MG SC (17:09)
[2025-03-26] MEDS: TYLENOL 650 MG PO (20:15)
[2025-03-26] MEDS: AMBIEN 10 MG PO (21:31)
[2025-03-26] MEDS: DESYREL 150 MG PO (21:31)
[2025-03-27 03:38] VITALS: BP 155/62
[2025-03-27 07:11] VITALS: BP 131/62
[2025-03-27] MEDS: PEPCID 20 MG PO (09:00)
[2025-03-27] MEDS: WELLBUTRIN XL (24 hour extended release) 300 MG PO (09:00)
[2025-03-27] MEDS: ROBITUSSIN 100 MG PO ×2 (09:04→13:42)
[2025-03-27 11:39] VITALS: BP 147/57
--- NOTE | 2025-03-27 12:22 | W.PN.HOSP.TC ---
Today's Communication/Plan
-
d/c
Assessment / Plan
Assessment / Plan
pt is an 84 year old female
Syncope--due to vasovagal--induced by eye drops--s/p 1L NSS--echo done--apprec cards--no further workup needed
Hyponatremia--stop home HCTZ--No confusion
Essential HTN--cont Losartan--stopped home HCTZ
GERD--cont home Pepcid
h/o pancreatic head lesion (stable on serial imaging)
h/o R breast CA
Chronic insomnia, Ambien dependent
Obesity due to excess calories
ok for d/c
Anticipated Discharge: Today
Subjective/Interval History
-
Date of Service: March 27, 2025
pt ok for d/c
Objective Data
-
Vital Signs:
max temp for 24 hours
03/27/25
07:11
Temp 98.4 F
Vital Signs
Temp Pulse Resp BP Pulse Ox
98.3 F 72 18 147/57 97
03/27/25 11:39 03/27/25 11:39 03/27/25 11:39 03/27/25 11:39 03/27/25 11:39
I&O
03/26/25 03/27/25 03/28/25
06:59 06:59 06:59
Intake Total 480 / 480
Output Total 1100 / 1100 2750 / 2750
Balance -1100 / -1100 -2270 / -2270
Review of Systems
-
All other systems: Reviewed and negative
Physical Exam
-
General: Well Developed, Well Nourished and No Apparent Distress
HEENT: Normocephalic and Atraumatic
Respiratory: Clear to Auscultation; Negative Wheezes or Rhonchi
Cardiac: Regular Rhythm and S1/S2; Negative Murmur
GI: Soft, Nontender, Nondistended and Normal Bowel Sounds
Musculoskeletal: No Clubbing, No Cyanosis and No Edema
Neuro: Awake and Alert
Psych: Calm
--- NOTE | 2025-03-27 13:14 | W.PN.CARDCBS ---
Addendum entered and electronically signed by Jayy Crane MD 03/27/25 13:53:
I saw and examined the patient.
The BUSINESS DEVELOPMENT ASSISTANT or PA's note was reviewed and I agree with the note.
Comment: General: Well developed, well nourished in NAD.
Neck: Supple, no JVD, HJR, carotids +2 B/L, no bruits bilaterally.
Heart: Non displaced PMI, RRR, 1/6 basal diastolic murmur, No S3, S4, no rubs.
Lungs: Clear to auscultation bilaterally, no wheeze, rhonchi, rubs bilaterally,
normal expiratory phase.
Extremities: No clubbing, cyanosis or edema bilaterally.
Neuro: Grossly nonfocal, awake, alert and oriented x3.
Stable cardiology status for discharge and follow-up has been arranged. Discussed with patient.
Original Note:
Today's Communication / Plan
-
Follow up on haptoglobin as an outpatient, Hgb is stable
ARSEN results noted
Stable for d/c from a cardiac standpoint
Impression / Plan
-
PCP: Dr. Melquiades Kirby
Primary Bus Or Truck Garage Mechanic: Dr. Bowles
Impression:
Syncope 03/25/25
URI
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
peak/mean 35/19 and moderate to severe aortic regurgitation by echo 03/25/25
HTN
HLD
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
FLETCHER, CPAP intolerant
GERD
History of migraines
ALEX/BSO 1969
R rotator cuff repair 2011
DDD s/p cervical fusion C5-C6 in 1971
Gastric bypass 2007
B/L TKR 2008
Breast reduction 2012
R breast lumpectomy 2013
Insomnia
ECHO 06/06/23: Technically difficult study, EF 60 to 65%, grade 1 diastolic dysfunction, mild MR, mild TR, severe with peak/mean gradient 72/40 mmHg, PAUL 0.9 cm�, mild AR, PAP 31 mmHg
ECHO 08/18/23: Limited echo immediately after TAVR deployment, EF 65 to 70%, 20 mm Noguera transcatheter aortic valve replacement with mean gradient of 8 mmHg, trace AR
Echo 03/25/25: EF 60-65%, mild conc LVH, mild MS with mean gradient 5 mmHg, s/p TAVR with peak/mean 35/19 and moderate to severe aortic regurgitation
ARSEN 03/26/2025: EF 55 to 60%, normal RV size and function, mild MS, mild to moderate MR, Noguera TAVR in place with 2 perivalvular leaks present and together they make it moderate aortic regurgitation the valve does open properly, mild bioprosthetic
stenosis, mild to moderate TR
Plan:
-Syncope could have been vasovagal with sitting up in chair for eye procedure and also a sharp pain in her head prior to syncope. No concerning arrhythmia or AV block on tele.
-Outpatient dose of losartan 50 mg daily has been stopped due to hypotension.
-Echo showed new moderate to severe aortic regurgitation. ARSEN performed 03/26/25 and 2 perivalvular leaks present and together they make it moderate aortic regurgitation the valve does open properly, mild bioprosthetic stenosis.
-Haptoglobin pending. Hgb is stable at 10.3 on labs reviewed by me. Retic count 1.4 and LDH modestly elevated at 635.
-Stable for d/c from a cardiac standpoint
Progress Note - Bus Or Truck Garage Mechanic
Subjective
Date of Service: March 27, 2025
No more syncope
Objective
Labs:
03/26/25 10:47
03/26/25 10:47
Labs
Hgb 10.3 g/dL (12.0-16.0) L 03/26/25 10:47
Hct 29.7 % (37.0-47.0) L 03/26/25 10:47
Plt Count 181 10^3/uL (130-400) 03/26/25 10:47
Sodium 131 mmol/L (135-145) L 03/26/25 10:47
Potassium 4.7 mmol/L (3.5-5.1) 03/26/25 10:47
BUN 14 mg/dl (7-17) 03/26/25 10:47
Creatinine 0.7 mg/dL (0.6-1.0) 03/26/25 10:47
Glucose 91 mg/dl (70-99) 03/26/25 10:47
Vital Signs and I&O:
Vital Signs
Temp Pulse Resp BP Pulse Ox
98.3 F 72 18 147/57 97
03/27/25 11:39 03/27/25 11:39 03/27/25 11:39 03/27/25 11:39 03/27/25 11:39
Vital Signs
Temp Pulse Resp BP Pulse Ox
98.3 F 72 18 147/57 97
03/27/25 11:39 03/27/25 11:39 03/27/25 11:39 03/27/25 11:39 03/27/25 11:39
Intake & Output
03/25/25 03/26/25 03/27/25 03/28/25
06:59 06:59 06:59 06:59
Intake Total 480 / 480
Output Total 1100 / 1100 2750 / 2750
Balance -1100 / -1100 -2270 / -2270
Physical Exam
Physical Exam
GEN: NAD. AAOx3
HEENT: EOMI
LUNGS: RA. No wheeze
CV: SR on tele.
EXT: No edema B/L
NEURO: Gross non-focal
SKIN: No rash
--- NOTE | 2025-03-27 13:36 | CM ---
Chart reviewed. Patient is stable for d/c today
Current w/ [facility], made liaison aware of d/c to arrange resumption of care
Met w/ patient bedside, aware and agreeable to d/c. Daughter will transport
IMM verbally reviewed, copy given to patient, copy on chart
Plan: Home, [facility] w/ [facility]
--- NOTE | 2025-03-27 13:42 | W.DCSUMMARY ---
Discharge Summary
Discharge Data
Date of Admission: 03/25/25
Date of Discharge: 03/27/25
-
Pending Results: No
Hospital Course
Primary care physician : Melquiades Kirby
Principal Discharge diagnosis : Vasovagal syncope
Chronic Discharge diagnosis : Hyponatremia, essential hypertension, gastroesophageal reflux disease, history of pancreatic head lesion, history of right breast cancer, chronic insomnia with Ambien dependency, obesity
Hospital Course : Patient was an 84-year-old female who presented after having a syncopal episode. Patient was at the ophthalmology office and was having eyedrops administered when she had a syncopal episode. She had no prodromal symptoms.
Recently she complained of a cold with symptoms consisting of a productive cough but otherwise without any issue. Cardiology was consulted and recommended admission for ARSEN.
Problem #1: Vasovagal syncope. This was felt to be clearly precipitated by eyedrops given in the [facility] office. Transthoracic echocardiogram was done and showed normal left ventricular chamber size with ejection fraction of 60 to 65%.
Aortic regurgitation is moderate to severe but patient did have a TAVR placed. She was seen in consultation by cardiology. Transesophageal echocardiogram shows the same along with moderate to severe aortic regurgitation. She has been cleared for
discharge by cardiology.
Problem #2: All other medical issues. These include Hyponatremia, essential hypertension, gastroesophageal reflux disease, history of pancreatic head lesion, history of right breast cancer, chronic insomnia with Ambien dependency, obesity. These
medical issues were stable during her hospitalization. Medications were continued as able. Hydrochlorothiazide has been stopped due to hyponatremia.
Patient is stable for discharge home at this time. If there are any questions regarding this dictation or her hospital stay, please do not hesitate to call. Our office number is [phone].
Procedure findings :
ECHO CONCLUSIONS:
Normal left ventricular chamber size. Normal left ventricular systolic
function. Left ventricular ejection fraction is 60-65%. Normal regional wall
motion. Mild concentric left ventricular hypertrophy.
Mild mitral stenosis. Mean gradient is 5mmHg. Moderate mitral regurgitation.
TAVR. Noguera Jacky 20. Peak/mean gradients are 35/19mmHg. Moderate to severe
aortic regurgitation. Pressure half time is 232msec.
Compared to the previous echo from May 2024, the AR is now moderate to
severe.
ARSEN ECHO CONCLUSIONS:
Normal left ventricular chamber size. Normal left ventricular systolic
function. Normal regional wall motion. Mild concentric left ventricular
hypertrophy. Left ventricular ejection fraction is 55-60%.
Normal right ventricular size and function.
Mildly dilated left atrium.
Thickened mitral valve leaflets. Mitral annular calcification. Mild mitral
stenosis. Mild to moderate mitral regurgitation.
An Noguera transcatheter aortic valve is in place. There are 2 paravalvular
leaks present. Together they are moderate aortic regurgitation. The valve
does open appropriately. There is mild bioprosthetic stenosis.
Mild to moderate tricuspid regurgitation.
Discharge Plan
-
Patient Disposition: Home with Home Care
Discharge Diagnosis/Procedures: Vasovagal syncope, hyponatremia, essential hypertension, gastroesophageal reflux disease, history of pancreatic head lesion, history of right breast cancer, chronic insomnia, obesity
Condition: Good
Diet: Low Cholesterol and Low Sodium
Activity: As tolerated
Driving Restrictions: As prior to admission
Bathing Restrictions: None
Other Services: VN
Referrals:
Melquiades Kirby MD [Family Provider] - in less than 1 week
Trino Bowles MD [Active] - in two to three weeks (The cardiology office will call you with an appt to be seen in 2-3 weeks.)
Prescriptions:
Continued
bupropion HCl 300 mg Tablet Extended Release 24 Hr
300 mg PO DAILY
trazodone 50 mg Tablet
150 mg PO HS
tramadol 50 mg Tablet
50 mg PO DAILYPRN PRN (Reason: moderate pain)
zolpidem 10 MG tablet
10 mg PO HS
Aranesp(Albumin Free) 200mcg
0.5 ml SC Q2W
losartan 50 mg Tablet
50 mg PO QPM
famotidine [Pepcid] 40 mg Tablet
40 mg PO DAILY
Systane (PF) 0.4-0.3 % Dropperette
1 drp BOTH EYES TIDPRN PRN (Reason: dryness)
cranberry extract [Ellura] 200 mg Capsule
200 mg PO DAILY
Discontinued
naproxen sodium [Aleve] 220 mg Tablet
220 mg PO [id number] PRN (Reason: shoulder pain)
hydrochlorothiazide 12.5 mg Tablet
12.5 mg PO DAILY
Discharge Orders:
Discharge Patient (As Directed); Ordered 03/27/25
Ordered By: Jany Landrum
Discharge Date and Time
Discharge Date/Time: 03/27/25 14:44
Print Language: FRENCH
[2025-03-28 09:15] LABS: Haptoglobin <10 mg/dL (30-200)
== END 2025-03-27 14:44 | disposition home health service (06) | DRG 312 ==
LOC: 4 WEST ACU 15:32
PROVIDERS: Internal Medicine Cardiovascular Disease; ADMITTING PHYSICIAN Internal Medicine; ATTENDING PHYSICIAN Internal Medicine; CONSULT PHYSICIAN Nuclear Medicine Nuclear Cardiology; EMERGENCY PHYSICIAN Student in an Organized Health Care Education/Training Program; FAMILY PHYSICIAN Family Medicine
PROC: B24BZZ4 Ultrasonography of Heart with Aorta, Transesophageal (ICD-10-PCS; 2025-03-26)
DX: R55 Syncope and collapse (principal); E87.1 Hypo-osmolality and hyponatremia; T49.5X5A Adverse effect of ophthalmological drugs and preparations, initial encounter; R51.9 Headache, unspecified; K21.9 Gastro-esophageal reflux disease without esophagitis; E66.09 Other obesity due to excess calories; Z68.30 Body mass index [BMI] 30.0-30.9, adult; Z95.2 Presence of prosthetic heart valve; Z85.3 Personal history of malignant neoplasm of breast
CPT/HCPCS: 70450; 71046; 80053; 81003; 81015; 82248; 83010; 83615; 83735; 85025; 85027; 85045; 87077; 87086; 87186; 87502; 87811; 93005; 93306; 93312; 93320; 93325; 96361; 96365; 96375; 99285

== ENCOUNTER → 2025-04-10 15:00 | Outpatient (REF) | payer MEDICARE, OTHER, SELFPAY ==
[2025-04-10 16:07] LABS: % Basophils 0.8 % (0-2); % Eosinophils 4.1 % (0-6); % Immature Granulocytes 0.2 % (0-0.5); % Lymphocytes 17.3 % (20.5-51.1); % Monocytes 8.8 % (1.7-9.3); % Neutrophils 68.8 % (42.2-75.2); Absolute Basophils 0.1 10^3/uL (0-0.2); Absolute Eosinophils 0.2 10^3/uL (0-0.7); Absolute Monocytes 0.5 10^3/uL (0.1-0.6); Absolute Neutrophils 4.1 10^3/uL (1.4-6.5); Hematocrit 28.7 % (37.0-47.0); Hemoglobin 9.5 g/dL (12.0-16.0); Mean Corp Hgb Conc. 33.1 g/dL (33.0-37.0); Mean Corpuscular Volume 90.5 fL (81.0-99.0); Mean Platelet Volume 10.6 fL (7.4-10.4); Nucleated Red Blood Cells % 0 %; Platelet Count 257 10^3/uL (130-400); Red Blood Cell Count 3.17 10^6/uL (4.20-5.40); Red Cell Dist. Width 13.8 % (11.5-14.5); White Blood Cell Count 5.9 10^3/uL (4.8-10.8)
[2025-04-10 16:14] LABS: Blood Urea Nitrogen 32 mg/dl (7-17); Iron 68 ug/dl (37-170)
[2025-04-10 16:22] LABS: Percent Saturation 25 % (20-50); Total Iron Binding Capacity 266 ug/dl (265-497)
== END ==
LOC: REG 15:00
PROVIDERS: ATTENDING PHYSICIAN Internal Medicine Hematology & Oncology; FAMILY PHYSICIAN Family Medicine
DX: C50.411 Malignant neoplasm of upper-outer quadrant of right female breast (principal); R11.2 Nausea with vomiting, unspecified; Z51.89 Encounter for other specified aftercare; Z98.84 Bariatric surgery status; M81.8 Other osteoporosis without current pathological fracture; D64.9 Anemia, unspecified; R53.82 Chronic fatigue, unspecified; N18.30 Chronic kidney disease, stage 3 unspecified; D50.9 Iron deficiency anemia, unspecified; D59.4 Other nonautoimmune hemolytic anemias; R30.0 Dysuria; N39.0 Urinary tract infection, site not specified; D63.1 Anemia in chronic kidney disease
CPT/HCPCS: 36415; 82565; 82728; 83540; 83550; 84520; 85025

== ENCOUNTER 2025-05-05 09:44 | Emergency (ER) | payer MEDICARE, OTHER, SELFPAY ==
[2025-05-05 09:59] VITALS: BP 159/62
--- NOTE | 2025-05-05 10:17 | ED TECH ---
unable to draw labs in triage.
--- NOTE | 2025-05-05 10:56 | ED.GENMED ---
History of Present Illness
General
Chief Complaint: Fall
Source: patient and family (daughter at bedside)
Exam Limitations: none
Time Seen by Provider: 05/05/25 10:55
History of Present Illness
History of Present Illness:
84 yo female w h/o migraines, HTN, HLD, GERD, UTI, anemia, remote hx breast CA, depression, admitted 03/25-03/27 for vasovagal syncope, presents for fall this a.m., bilateral hip pain.
Pt lives in carriage house of daughter's, daughter was golfing this a.m. when she got a call from pt at 7:50 a.m. saying she fell, while bending over to pick something up; also was saying there were bugs on the miller and the miller were changing
colors and the freezer was leaking water. Daughter arrived shortly after, found pt laying on living room floor, stool incontinence in the kitchen, her computer was on the floor, and clothing in the bathroom. Pt states she was laying on the floor for
1-2 hours but recollection is unclear.
Daughter states pt was able to be helped up, and able to walk comfortable but every time she lifts her legs (ie to get up and down from chair, into and out of car) has significant pain in the bilateral groin areas L>R. Laying still pt states no pain.
Pt denies hitting head, denies headache, neck pain or any other pain.
Past History
Past History
ED Past Medical History: GERD, HTN, Hypercholesterolemia, Psychiatric (Depression) and Other (UTI)
ED Past Surgical History: Cholecystectomy, Gynecological, Orthopedic (carpal tunnel right hand, right shoulder replacement and R wrist hardware) and Other (gastric bypass)
Social History
Tobacco: Non-smoker
Drug: None
Personal:
Living: with family
Employment: Retired
Family History
Family History: Other
Review of Systems
Review of Systems
Allergies reviewed?: Yes
All Other Systems: ROS reviewed and negative except as documented in HPI and ROS
Constitutional: Denies fever or fatigue
Respiratory: Denies trouble breathing
Cardiac: Denies chest pain or syncope
ABD/GI: Denies abdominal pain, nausea, vomiting, diarrhea or anorexia
: Reports incontinence
Musculoskeletal: Reports other (bilateral hip area pain); Denies edema
Skin: Reports no symptoms
Neurological: Reports other; Denies headache
Psychiatric: Reports hallucinations (during phone call to daughter after fall, seeing bugs on miller and miller changing color, not usual for her, no further hallucinations per daughter)
Phy Exam
Physical Exam
Physical Exam:
GENERAL: No acute distress. A&Ox3.
CONSTITUTIONAL: Afebrile.
EYES: clear, conjunctivae normal
ENMT: moist mucus membranes, Pharynx nl
RESPIRATORY: Regular respirations, nonlabored, lungs clear.
CARDIOVASCULAR: Regular rate and rhythm, no murmurs, no rubs.
GI: Soft, nontender, normal BS
MUSCULOSKELETAL: Tender to palpate lateral hip areas L>R. Able to SLR each leg to 45 degrees off bed, then too painful. No edema. Moves with ease. Well perfused.
SKIN: Warm, dry, pink
PSYCH: Normal mood and affect. Well kept, interactive and appropriate
NEUROLOGIC: Awake, alert and oriented. No focal neurological deficits
Course
Orders/Labs/Results
Orders:
Orders
05/05/25 11:16
CT Pelvis W/o Iv Contrast Urgent
Comment:
Reason For Exam: bilateral groin pain after fall
05/05/25 11:27
Add On- LAB Urgent
Tests Added?: CPK
05/05/25 12:26
Urinalysis Reflex To Culture Urgent
Date Specimen was Collected: 05/05/25
Time Specimen was Collected: 11:39
Urine Microscopic Reflex Cult Urgent
Urine Culture Urgent
ANETTE Source: U
Specimen Description:
Date Specimen was Collected: 05/05/25
Time Specimen was Collected: 11:39
05/05/25 13:36
Ibuprofen [Motrin] 600 mg PO NOW STA
Abnormal Lab Results
05/05/25
12:26
Ur Occult Blood Reflex 4+ A
(Negative)
Leukocyte Esterase Rfl 1+ A
(Negative)
Urine RBC 3-6 A /HPF
(0-2)
Urine Bacteria (Reflex) Many A
(Negative)
Urine Albumin (Reflex) 1+ A
(Neg - Trace)
05/05/25 12:26
05/05/25 12:26
Vital Signs
Initial and Last Documented VS:
Initial Vital Signs
Temp Pulse Resp BP Pulse Ox
97.7 F 65 18 159/62 100
05/05/25 09:59 05/05/25 09:59 05/05/25 09:59 05/05/25 09:59 05/05/25 09:59
Last Documented Vital Signs
Temp Pulse Resp BP Pulse Ox
97.7 F 65 18 159/62 100
05/05/25 09:59 05/05/25 09:59 05/05/25 09:59 05/05/25 09:59 05/05/25 09:59
MDM/Problems Addressed
Differential Diagnosis Includes:
UTI, dehydration, pelvic/hip fracture.
MDM/Problems Addressed:
84 yo female w h/o migraines, HTN, HLD, GERD, UTI, anemia, remote hx breast CA, depression, admitted 03/25-03/27 for vasovagal syncope, presents for fall this a.m., bilateral hip pain.
Pt lives in carriage house of daughter's, daughter was golfing this a.m. when she got a call from pt at 7:50 a.m. saying she fell while bending over to pick something up; also was saying there were bugs on the miller and the miller were changing
colors and the freezer was leaking water. Daughter arrived shortly after, found pt laying on living room floor, stool incontinence in the kitchen, her computer was on the floor, and clothing in the bathroom. Pt states she was laying on the floor for
1-2 hours but recollection is unclear.
Daughter states pt was able to be helped up, and able to walk comfortable but every time she lifts her legs (ie to get up and down from chair, into and out of car) has significant pain in the bilateral groin areas L>R. Laying still pt states no pain.
Pt denies hitting head, denies headache, neck pain or any other pain.
1:00 PM:
CBC, CMP:unable to obtain blood per RN
CAT scan pelvis nothing acute: radiology report read: IMPRESSION:
1. Mild bilateral osteoarthritis of the hips.
2. Severe bilateral facet joint arthrosis at L4/L5 and L5/S1 with minimal grade 1 anterolistheses at both levels.
3. 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
4. Severe diverticulosis in the sigmoid colon.
5. Moderate distention of the urinary bladder.
2:30 PM:
UA negative
Nurse is unable to obtain blood, IV team called, daughter at bedside states she does not want patient to be stuck for blood work as she has blood work ordered in 3 days that must be done only 2 days prior to her infusion to boost RBC count.
Discussed dehydration, daughter will encourage fluids and states 'Dr. Ramírez will find out if anything is abnormal in her blood work' in 3 days.
Patient has been out of bed and ambulating independently at her baseline per daughter.
They are requesting to be discharged.
Unsure of the cause of her transient hallucinations earlier this morning. No focal neurological deficits. Patient has been back to her baseline since initial event
*Critical Care Note
Total Time (30-74mins, 75-104mins- exclusive of procedures): Not Applicable
ED Attending Note
-
Portions of this chart may have been created with voice recognition software.� Occasional wrong word or��sound alike� substitutions may have occurred due to the inherent limitations of voice recognition software.
Discharge Plan
Departure
Patient Disposition: Home (Routine Discharge)
Date of Disposition: 05/05/25
Time of Disposition: 13:41
Patient with high blood pressure during this ER visit?: No
Condition: Good
Discharge Problem:
Fall from slip, trip, or stumble, Episodes of formed visual hallucinations
Prescriptions:
No Action
bupropion HCl 300 mg Tablet Extended Release 24 Hr
300 mg PO DAILY
trazodone 50 mg Tablet
150 mg PO HS
tramadol 50 mg Tablet
50 mg PO DAILYPRN PRN (Reason: moderate pain)
zolpidem 10 MG tablet
10 mg PO HS
Aranesp(Albumin Free) 200mcg
0.5 ml SC Q2W
losartan 50 mg Tablet
50 mg PO QPM
famotidine [Pepcid] 40 mg Tablet
40 mg PO DAILY
Systane (PF) 0.4-0.3 % Dropperette
1 drp BOTH EYES TIDPRN PRN (Reason: dryness)
cranberry extract [Ellura] 200 mg Capsule
200 mg PO DAILY
Referrals:
Melquiades Kirby MD [Family Provider, Family Practice]
Activity Restrictions/Additional Instructions:
As we discussed, your urine test shows no sign of infection.
You have opted to not have your blood work drawn as you are going to get lab work in 3 days prior to your visit with Dr. Ramírez
Interventions
Interventions:
*Risk Screen - Suicide Last Done: 05/05/25 09:59
*General Assessment Last Done: 05/05/25 09:59
Discharge Date and Time
Print Language: UPPER SORBIAN
[2025-05-05 12:57] LABS: Urine Albumin 1+ (Neg - Trace); Urine Bilirubin Negative (Negative); Urine Character Slightly Cloudy (Clear); Urine Color Yellow; Urine Glucose Negative (Negative); Urine Ketone Negative (Negative); Urine Leukocyte 1+ (Negative); Urine Nitrite Negative (Negative); Urine Occult Blood 4+ (Negative); Urine Urobilinogen Negative (Neg - 1+)
[2025-05-05 13:23] LABS: Urine Bacteria Many (Negative); Urine Squamous Cell 16-20 /LPF (Few)
[2025-05-05] MEDS: MOTRIN 600 MG PO (13:55)
[2025-05-05 16:27] VITALS: BP 152/84
== END 2025-05-05 16:00 | disposition home or self-care (01) ==
LOC: EMR 09:44
PROVIDERS: Registered Nurse; EMERGENCY PHYSICIAN Emergency Medicine; FAMILY PHYSICIAN Family Medicine
DX: R44.1 Visual hallucinations (principal); M25.552 Pain in left hip; M25.551 Pain in right hip; R10.30 Lower abdominal pain, unspecified; W01.0XXA Fall on same level from slipping, tripping and stumbling without subsequent striking against object, initial encounter; R15.9 Full incontinence of feces; N32.89 Other specified disorders of bladder; M16.0 Bilateral primary osteoarthritis of hip; M43.17 Spondylolisthesis, lumbosacral region; M47.817 Spondylosis without myelopathy or radiculopathy, lumbosacral region; I10 Essential (primary) hypertension; E78.00 Pure hypercholesterolemia, unspecified; F32.A Depression, unspecified; D64.9 Anemia, unspecified; K21.9 Gastro-esophageal reflux disease without esophagitis; K57.30 Diverticulosis of large intestine without perforation or abscess without bleeding; G43.909 Migraine, unspecified, not intractable, without status migrainosus; Z90.49 Acquired absence of other specified parts of digestive tract; Z87.440 Personal history of urinary (tract) infections; Z96.611 Presence of right artificial shoulder joint; Z98.84 Bariatric surgery status
CPT/HCPCS: 99284; 72192; 81003; 81015; 87086

== ENCOUNTER → 2025-05-08 15:25 | Outpatient (REF) | payer MEDICARE, OTHER, SELFPAY ==
[2025-05-08 16:26] LABS: % Basophils 0.9 % (0-2); % Eosinophils 5.3 % (0-6); % Immature Granulocytes 0.2 % (0-0.5); % Lymphocytes 19.7 % (20.5-51.1); % Monocytes 10.2 % (1.7-9.3); % Neutrophils 63.7 % (42.2-75.2); Absolute Basophils 0.1 10^3/uL (0-0.2); Absolute Eosinophils 0.3 10^3/uL (0-0.7); Absolute Lymphocytes 1.3 10^3/uL (1.2-3.4); Absolute Monocytes 0.7 10^3/uL (0.1-0.6); Absolute Neutrophils 4.1 10^3/uL (1.4-6.5); Hematocrit 28.5 % (37.0-47.0); Hemoglobin 9.3 g/dL (12.0-16.0); Mean Corp Hgb Conc. 32.6 g/dL (33.0-37.0); Mean Corpuscular Hgb 30.6 pg (27.0-31.0); Mean Corpuscular Volume 93.8 fL (81.0-99.0); Mean Platelet Volume 10.8 fL (7.4-10.4); Nucleated Red Blood Cells % 0 %; Platelet Count 229 10^3/uL (130-400); Red Blood Cell Count 3.04 10^6/uL (4.20-5.40); Red Cell Dist. Width 14.3 % (11.5-14.5); White Blood Cell Count 6.4 10^3/uL (4.8-10.8)
== END ==
LOC: REG 15:25
PROVIDERS: ATTENDING PHYSICIAN Internal Medicine Hematology & Oncology; FAMILY PHYSICIAN Family Medicine
DX: C50.411 Malignant neoplasm of upper-outer quadrant of right female breast (principal); R11.2 Nausea with vomiting, unspecified; Z51.89 Encounter for other specified aftercare; Z98.84 Bariatric surgery status; M81.8 Other osteoporosis without current pathological fracture; D64.9 Anemia, unspecified; R53.82 Chronic fatigue, unspecified; N18.30 Chronic kidney disease, stage 3 unspecified; D50.9 Iron deficiency anemia, unspecified; D59.4 Other nonautoimmune hemolytic anemias; R30.0 Dysuria; N39.0 Urinary tract infection, site not specified
CPT/HCPCS: 36415; 85025

== ENCOUNTER → 2025-05-21 14:22 | Outpatient (REF) | payer MEDICARE, OTHER, SELFPAY | LOC: RAD 14:22 | PROVIDERS: ATTENDING PHYSICIAN Family Medicine | DX: M81.0 Age-related osteoporosis without current pathological fracture (principal) | CPT/HCPCS: 77080 ==

== ENCOUNTER → 2025-06-05 14:11 | Outpatient (REF) | payer MEDICARE, OTHER, SELFPAY ==
[2025-06-05 15:35] LABS: Hematocrit 29.4 % (37.0-47.0); Hemoglobin 9.5 g/dL (12.0-16.0); Mean Corp Hgb Conc. 32.3 g/dL (33.0-37.0); Mean Corpuscular Volume 95.1 fL (81.0-99.0); Nucleated Red Blood Cells % 0 %; Platelet Count 237 10^3/uL (130-400); Red Cell Dist. Width 13.6 % (11.5-14.5)
== END ==
LOC: REG 14:11
PROVIDERS: ATTENDING PHYSICIAN Internal Medicine Hematology & Oncology; FAMILY PHYSICIAN Family Medicine
DX: C50.411 Malignant neoplasm of upper-outer quadrant of right female breast (principal); R11.2 Nausea with vomiting, unspecified; Z51.89 Encounter for other specified aftercare; Z98.84 Bariatric surgery status; M81.8 Other osteoporosis without current pathological fracture; D64.9 Anemia, unspecified; R53.82 Chronic fatigue, unspecified; N18.30 Chronic kidney disease, stage 3 unspecified; D50.9 Iron deficiency anemia, unspecified; D59.4 Other nonautoimmune hemolytic anemias; R30.0 Dysuria; N39.0 Urinary tract infection, site not specified
CPT/HCPCS: 36415; 85025; 86850; 86900; 86901

== ENCOUNTER → 2025-07-03 11:00 | Outpatient (REF) | payer MEDICARE, OTHER, SELFPAY ==
[2025-07-03 11:59] LABS: Hematocrit 28.9 % (37.0-47.0); Hemoglobin 9.5 g/dL (12.0-16.0); Mean Corp Hgb Conc. 32.9 g/dL (33.0-37.0); Mean Corpuscular Volume 92.9 fL (81.0-99.0); Nucleated Red Blood Cells % 0 %; Platelet Count 203 10^3/uL (130-400); Red Cell Dist. Width 13.0 % (11.5-14.5)
== END ==
LOC: REG 11:00
PROVIDERS: ATTENDING PHYSICIAN Internal Medicine Hematology & Oncology; FAMILY PHYSICIAN Family Medicine
DX: C50.411 Malignant neoplasm of upper-outer quadrant of right female breast (principal); R11.2 Nausea with vomiting, unspecified; Z51.89 Encounter for other specified aftercare; Z98.84 Bariatric surgery status; M81.8 Other osteoporosis without current pathological fracture; D64.9 Anemia, unspecified; R53.82 Chronic fatigue, unspecified; N18.30 Chronic kidney disease, stage 3 unspecified; D50.9 Iron deficiency anemia, unspecified; D59.4 Other nonautoimmune hemolytic anemias; R30.0 Dysuria; N39.0 Urinary tract infection, site not specified
CPT/HCPCS: 36415; 85025

== ENCOUNTER → 2025-07-09 09:07 | Outpatient (REF) | payer MEDICARE, OTHER, SELFPAY | LOC: HWRAD 09:07 | PROVIDERS: ATTENDING PHYSICIAN Orthopaedic Surgery; FAMILY PHYSICIAN Family Medicine | DX: S42.292K Other displaced fracture of upper end of left humerus, subsequent encounter for fracture with nonunion (principal) | CPT/HCPCS: 73200 ==

== ENCOUNTER → 2025-07-31 14:08 | Outpatient (REF) | payer MEDICARE, OTHER, SELFPAY ==
[2025-07-31 15:04] LABS: Hematocrit 30.7 % (37.0-47.0); Hemoglobin 10.0 g/dL (12.0-16.0); Mean Corp Hgb Conc. 32.6 g/dL (33.0-37.0); Mean Corpuscular Volume 92.7 fL (81.0-99.0); Nucleated Red Blood Cells % 0 %; Platelet Count 218 10^3/uL (130-400); Red Cell Dist. Width 13.2 % (11.5-14.5)
[2025-07-31 15:35] LABS: Blood Urea Nitrogen 28 mg/dl (7-17); Calcium 9.0 mg/dl (8.4-10.2); Carbon Dioxide 25 mmol/L (22-30); Chloride 105 mmol/L (98-107); Glucose 89 mg/dl (70-99); Iron 61 ug/dl (37-170); Potassium 5.0 mmol/L (3.5-5.1); Sodium 135 mmol/L (135-145); eGFR 55.21
[2025-07-31 15:44] LABS: Total Iron Binding Capacity 324 ug/dl (265-497)
[2025-07-31 16:09] LABS: Ferritin 56.9 ng/ml (11.1-264.0)
== END ==
LOC: RCS 14:08
PROVIDERS: ATTENDING PHYSICIAN Internal Medicine Hematology & Oncology; FAMILY PHYSICIAN Family Medicine; OTHER PHYSICIAN Nurse Practitioner Adult Health; REFERRING PHYSICIAN Orthopaedic Surgery
DX: C50.411 Malignant neoplasm of upper-outer quadrant of right female breast (principal); R11.2 Nausea with vomiting, unspecified; Z51.89 Encounter for other specified aftercare; Z98.84 Bariatric surgery status; M81.8 Other osteoporosis without current pathological fracture; D64.9 Anemia, unspecified; R53.82 Chronic fatigue, unspecified; N18.30 Chronic kidney disease, stage 3 unspecified; D50.9 Iron deficiency anemia, unspecified; D59.4 Other nonautoimmune hemolytic anemias; R30.0 Dysuria; N39.0 Urinary tract infection, site not specified; D63.1 Anemia in chronic kidney disease; S42.292K Other displaced fracture of upper end of left humerus, subsequent encounter for fracture with nonunion
CPT/HCPCS: 36415; 80048; 82728; 83540; 83550; 85025; 86850; 86900; 86901; 93005

== ENCOUNTER → 2025-08-13 13:07 | Outpatient (REF) | payer MEDICARE, OTHER, SELFPAY ==
[2025-08-13 16:44] LABS: Iron 68 ug/dl (37-170)
[2025-08-13 16:53] LABS: Total Iron Binding Capacity 315 ug/dl (265-497)
[2025-08-13 17:18] LABS: Ferritin 40.7 ng/ml (11.1-264.0)
== END ==
LOC: REG 13:07
PROVIDERS: ATTENDING PHYSICIAN Nurse Practitioner Adult Health; FAMILY PHYSICIAN Family Medicine
DX: C50.411 Malignant neoplasm of upper-outer quadrant of right female breast (principal); R11.2 Nausea with vomiting, unspecified; Z51.89 Encounter for other specified aftercare; Z98.84 Bariatric surgery status; M81.8 Other osteoporosis without current pathological fracture; D64.9 Anemia, unspecified; R53.82 Chronic fatigue, unspecified; N18.30 Chronic kidney disease, stage 3 unspecified; D50.9 Iron deficiency anemia, unspecified; D59.4 Other nonautoimmune hemolytic anemias; R30.0 Dysuria; N39.0 Urinary tract infection, site not specified; D63.1 Anemia in chronic kidney disease
CPT/HCPCS: 36415; 82728; 83540; 83550

== ENCOUNTER → 2025-08-20 14:36 | Outpatient (REF) | payer MEDICARE, OTHER, SELFPAY | LOC: RCS 14:36 | PROVIDERS: ATTENDING PHYSICIAN Internal Medicine Interventional Cardiology; FAMILY PHYSICIAN Family Medicine | DX: I35.0 Nonrheumatic aortic (valve) stenosis (principal) | CPT/HCPCS: 93306 ==

== ENCOUNTER → 2025-09-04 13:22 | Outpatient (REF) | payer MEDICARE, OTHER, SELFPAY ==
[2025-09-04 14:46] LABS: Hematocrit 32.7 % (37.0-47.0); Hemoglobin 10.8 g/dL (12.0-16.0); Mean Corp Hgb Conc. 33.0 g/dL (33.0-37.0); Mean Corpuscular Volume 93.7 fL (81.0-99.0); Nucleated Red Blood Cells % 0 %; Platelet Count 230 10^3/uL (130-400); Red Cell Dist. Width 13.9 % (11.5-14.5)
== END ==
LOC: REG 13:22
PROVIDERS: ATTENDING PHYSICIAN Internal Medicine Hematology & Oncology; FAMILY PHYSICIAN Family Medicine; OTHER PHYSICIAN Internal Medicine Interventional Cardiology
DX: C50.411 Malignant neoplasm of upper-outer quadrant of right female breast (principal); R11.2 Nausea with vomiting, unspecified; Z51.89 Encounter for other specified aftercare; Z98.84 Bariatric surgery status; M81.8 Other osteoporosis without current pathological fracture; D64.9 Anemia, unspecified; R53.82 Chronic fatigue, unspecified; N18.30 Chronic kidney disease, stage 3 unspecified; D50.9 Iron deficiency anemia, unspecified; D59.4 Other nonautoimmune hemolytic anemias; R30.0 Dysuria; N39.0 Urinary tract infection, site not specified; D63.1 Anemia in chronic kidney disease
CPT/HCPCS: 36415; 85025

== ENCOUNTER → 2025-09-23 14:27 | Outpatient (REF) | payer MEDICARE, OTHER, SELFPAY ==
[2025-09-23 16:25] LABS: Hematocrit 34.5 % (37.0-47.0); Hemoglobin 11.4 g/dL (12.0-16.0); Mean Corp Hgb Conc. 33.0 g/dL (33.0-37.0); Mean Corpuscular Volume 96.9 fL (81.0-99.0); Nucleated Red Blood Cells % 0 %; Platelet Count 194 10^3/uL (130-400); Red Cell Dist. Width 14.1 % (11.5-14.5)
[2025-09-23 16:45] LABS: ALT (SGPT) 18 U/L (0-35); AST (SGOT) 31 U/L (14-36); Albumin 4.4 g/dl (3.5-5.0); Alkaline Phosphatase 68 U/L (38-126); Blood Urea Nitrogen 31 mg/dl (7-17); Calcium 8.9 mg/dl (8.4-10.2); Carbon Dioxide 25 mmol/L (22-30); Chloride 99 mmol/L (98-107); Glucose 86 mg/dl (70-99); Potassium 4.9 mmol/L (3.5-5.1); Sodium 133 mmol/L (135-145); Total Protein 6.9 g/dl (6.3-8.2); eGFR 40.30
== END ==
LOC: REG 14:27
PROVIDERS: ATTENDING PHYSICIAN Family Medicine; REFERRING PHYSICIAN Internal Medicine Hematology & Oncology
DX: I10 Essential (primary) hypertension (principal)
CPT/HCPCS: 36415; 80053; 85025

== ENCOUNTER → 2025-10-02 12:45 | Outpatient (REF) | payer MEDICARE, OTHER, SELFPAY ==
[2025-10-02 14:12] LABS: Hematocrit 35.7 % (37.0-47.0); Hemoglobin 12.2 g/dL (12.0-16.0); Mean Corp Hgb Conc. 34.2 g/dL (33.0-37.0); Mean Corpuscular Volume 94.9 fL (81.0-99.0); Nucleated Red Blood Cells % 0 %; Platelet Count 227 10^3/uL (130-400); Red Cell Dist. Width 13.8 % (11.5-14.5)
== END ==
LOC: REG 12:45
PROVIDERS: ATTENDING PHYSICIAN Internal Medicine Hematology & Oncology; FAMILY PHYSICIAN Family Medicine
DX: C50.411 Malignant neoplasm of upper-outer quadrant of right female breast (principal); R11.2 Nausea with vomiting, unspecified; Z51.89 Encounter for other specified aftercare; Z98.84 Bariatric surgery status; M81.8 Other osteoporosis without current pathological fracture; D64.9 Anemia, unspecified; R53.82 Chronic fatigue, unspecified; N18.30 Chronic kidney disease, stage 3 unspecified; D50.9 Iron deficiency anemia, unspecified; D59.4 Other nonautoimmune hemolytic anemias; R30.0 Dysuria; N39.0 Urinary tract infection, site not specified; D63.1 Anemia in chronic kidney disease
CPT/HCPCS: 36415; 85025; 86850; 86900; 86901

== ENCOUNTER → 2025-10-30 13:19 | Outpatient (REF) | payer MEDICARE, OTHER, SELFPAY ==
[2025-10-30 14:09] LABS: Hematocrit 31.1 % (37.0-47.0); Hemoglobin 10.8 g/dL (12.0-16.0); Mean Corp Hgb Conc. 34.7 g/dL (33.0-37.0); Mean Corpuscular Volume 93.1 fL (81.0-99.0); Nucleated Red Blood Cells % 0 %; Platelet Count 216 10^3/uL (130-400); Red Cell Dist. Width 13.0 % (11.5-14.5)
== END ==
LOC: REG 13:19
PROVIDERS: ATTENDING PHYSICIAN Internal Medicine Hematology & Oncology; FAMILY PHYSICIAN Family Medicine
DX: C50.411 Malignant neoplasm of upper-outer quadrant of right female breast (principal); R11.2 Nausea with vomiting, unspecified; Z51.89 Encounter for other specified aftercare; Z98.84 Bariatric surgery status; M81.8 Other osteoporosis without current pathological fracture; D64.9 Anemia, unspecified; R53.82 Chronic fatigue, unspecified; N18.30 Chronic kidney disease, stage 3 unspecified; D50.9 Iron deficiency anemia, unspecified; D59.4 Other nonautoimmune hemolytic anemias; R30.0 Dysuria; N39.0 Urinary tract infection, site not specified; D63.1 Anemia in chronic kidney disease
CPT/HCPCS: 36415; 85025; 86850; 86900; 86901